=== PATIENT | female | born 1955 | race Caucasian/White ===

== ENCOUNTER 2016-09-25 19:39 | Emergency (ER) | payer MEDICAID, OTHER ==
[~2016-09-25] VITALS: Ht 162.6 cm; Wt 97.0 kg
[~2016-09-25 19:39] MED LIST: ATEN-102 PO; CLON1 PO; FERR324T4 PO; LEXA10TA OR; LISI20 PO; PROT40TA PO; ST J81CH PO
[2016-09-25 19:43] VITALS: BP 177/81; PULSE 84; RESP 16; TEMP 98.2; O2SAT 97
[2016-09-25] MEDS ORDERED: CLON1TAB PO (21:44)
[2016-09-25] MEDS ORDERED: ATEN50TA PO (21:44)
[2016-09-25] MEDS ORDERED: ASPI81CH CHEW (21:44)
[2016-09-25] MEDS ORDERED: LISI-515 PO (21:44)
[2016-09-25] MEDS ORDERED: PROT40TA PO (21:44)
[2016-09-25] MEDS ORDERED: FERR325T PO (21:44)
[2016-09-25 21:45] VITALS: BP 209/93; PULSE 80; RESP 18; O2SAT 97
[2016-09-25 22:07] VITALS: O2SAT 99
--- NOTE | 2016-09-25 22:13 | PD ---
HPI Chief Complaint: Respiratory Symptoms Time Seen by Provider: 22:04 Travel History International Travel<30 days: No Contact w/Intl Traveler<30days: No Traveled to known affect area: No History of Present Illness HPI The patient is a 60-year-old female that complains of a persistent cough productive of green sputum for 2 weeks. She denies any chest pain but does have shortness of breath with wheezing. She does have a history of asthma. She does not smoke. She had diarrhea a week ago but this has resolved. She denies any fever. The main reason she comes in is because of her persistent cough. She does have a nebulizer machine at home and has medications for the nebulizer. PFSH Past Medical History Arthritis: Yes (all over, fingers on both hands bent) Asthma: Yes Blood Disorders: No Anxiety: Yes Cancer: No Cardiovascular Problems: Yes (HTN) Diminished Hearing: No Endocrine: No Hepatitis: Yes (C) Hypertension: Yes Implanted Vascular Access Dvce: No Musculoskeletal: No Neurologic: No Psychiatric: Yes (SUICIDAL ATTEMPTS IN THE PAST) Reproductive: No Respiratory: Yes (ASTHMA) Past Surgical History Section: Yes Ear Surgery: Yes Other Surgery: No Social History Alcohol Use: No Tobacco Use: No Substance Use: No Allergies-Medications (Allergen,Severity, Reaction): Coded Allergies: No Known Allergies (Unverified , 09/25/16) Reported Meds & Prescriptions Reported Meds & Active Scripts Active Prednisone 50 Mg Tab 50 Mg PO BID Reported Protonix (Pantoprazole Sodium) 40 Mg Tab 40 Mg PO DAILY Lisinopril 20 Mg Tab 20 Mg PO DAILY Ferrous Sulfate 325 Mg Tab 325 Mg PO BID Clonazepam 1 Mg Tab 1 Mg PO HS Atenolol 50 Mg Tab 50 Mg PO DAILY Aspirin 81 Mg Chew 81 Mg CHEW DAILY Review of Systems Except as stated in HPI: all other systems reviewed are Neg Physical Exam Narrative GENERAL: The patient is alert, oriented 3 with persistent coughing. Her vital signs are normal except for blood pressure 177/81. SKIN: Warm and dry. HEAD: Atraumatic. Normocephalic. EYES: Pupils equal and round. No scleral icterus. No injection or drainage. ENT: No nasal bleeding or discharge. Mucous membranes pink and moist. NECK: Trachea midline. No JVD. CARDIOVASCULAR: Regular rate and rhythm. No murmur appreciated. RESPIRATORY: No accessory muscle use. Bilateral wheezes are heard in all lung dalal. Breath sounds equal bilaterally. GASTROINTESTINAL: Abdomen soft, non-tender, nondistended. Hepatic and splenic margins not palpable. MUSCULOSKELETAL: No obvious deformities. No clubbing. No cyanosis. No edema. NEUROLOGICAL: Awake and alert. No obvious cranial nerve deficits. Motor grossly within normal limits. Normal speech. PSYCHIATRIC: Appropriate mood and affect; insight and judgment normal. Data Data Last Documented VS Vital Signs Date Time Temp Pulse Resp B/P Pulse Ox O2 Delivery O2 Flow Rate FiO2 09/25/16 22:07 98 Nasal Cannula 1 09/25/16 21:45 80 18 209/93 09/25/16 19:43 98.2 Orders Influenzae A/B Antigen (09/25/16 22:04) Ecg Monitoring (09/25/16 22:04) Oximetry (09/25/16 22:04) Oxygen Administration (09/25/16 22:04) Chest, Pa & Lat (09/25/16 22:04) Albuterol-Ipratropium Neb (Duoneb Neb) (09/25/16 22:15) Complete Blood Count With Diff (09/25/16 22:05) Basic Metabolic Panel (Bmp) (09/25/16 22:05) Methylprednisolone So Succ Inj (Solumedr (09/25/16 22:15) Labs Laboratory Tests Test 09/25/16 22:09 White Blood Count 5.5 TH/MM3 Red Blood Count 4.26 MIL/MM3 Hemoglobin 12.7 GM/DL Hematocrit 36.3 % Mean Corpuscular Volume 85.1 FL Mean Corpuscular Hemoglobin 29.9 PG Mean Corpuscular Hemoglobin 35.2 % Concent Red Cell Distribution Width 14.7 % Platelet Count 114 TH/MM3 Mean Platelet Volume 8.0 FL Neutrophils (%) (Auto) 52.4 % Lymphocytes (%) (Auto) 28.1 % Monocytes (%) (Auto) 12.2 % Eosinophils (%) (Auto) 6.8 % Basophils (%) (Auto) 0.5 % Neutrophils # (Auto) 2.9 TH/MM3 Lymphocytes # (Auto) 1.5 TH/MM3 Monocytes # (Auto) 0.7 TH/MM3 Eosinophils # (Auto) 0.4 TH/MM3 Basophils # (Auto) 0.0 TH/MM3 CBC Comment DIFF FINAL Differential Comment Sodium Level 143 MEQ/L Potassium Level 3.9 MEQ/L Chloride Level 108 MEQ/L Carbon Dioxide Level 26.7 MEQ/L Anion Gap 8 MEQ/L Blood Urea Nitrogen 8 MG/DL Creatinine 0.57 MG/DL Estimat Glomerular Filtration 109 ML/MIN Rate Random Glucose 96 MG/DL Calcium Level 8.2 MG/DL [facility] Medical Decision Making Medical Screen Exam Complete: Yes Emergency Medical Condition: Yes Medical Record Reviewed: Yes Interpretation(s) The chest x-ray shows minimal basilar atelectasis. The influenza a/B antigen is negative for flu a and flu B antigen. The CBC is normal. The white count is on the low side of 5500. The basic metabolic profile is normal except for a calcium of 8.2. Differential Diagnosis COPD with acute exacerbation, pneumonia, bronchitis, acute asthma Narrative Course It is now 11:43 PM and the patient feels much better having had the DuoNeb treatments. She will be put on a tapered course of prednisone over 8 days. Diagnosis Primary Impression: Acute asthma Additional Impression: Viral URI with cough Additional Instructions: Follow-up with your primary care physician next week. The prednisone is taken one tablet every 12 hours for 4 days followed by one tablet daily for 4 days. Med/Other Pt SpecificInfo: Prescription(s) given Scripts Prednisone 50 Mg Tab50 Mg PO BID #12 TAB Ref 0 Prov:Emerson Bhatia MD 09/25/16 Disposition: 01 DISCHARGE HOME Condition: Stable Emerson Bhatia MD Sep 25, 2016 22:13
[2016-09-25] MEDS ORDERED: methylPREDNISolone SOD SUCC 125 MG/2 ML VIAL IV PUSH ONE (22:15)
[2016-09-25 22:22] LABS: AUTOMATED NEUTROPHIL # 2.9 TH/MM3 (1.8-7.7); BASOPHIL % 0.5 % (0.0-2.0); EOSINOPHIL # 0.4 TH/MM3 (0-0.4); EOSINOPHIL % 6.8 % (0.0-4.0); HEMATOCRIT 36.3 % (35.0-46.0); HEMO FLAGS DIFF FINAL; LYMPH % 28.1 % (9.0-44.0); LYMPHOCYTE # 1.5 TH/MM3 (1.0-4.8); MEAN CELL VOLUME 85.1 FL (80.0-100.0); MEAN CORPUSCULAR HEMOGLOBIN 29.9 PG (27.0-34.0); MEAN CORPUSCULAR HGB CONC 35.2 % (32.0-36.0); MONO % 12.2 % (0.0-8.0); NEUT % 52.4 % (16.0-70.0); PLATELET COUNT 114 TH/MM3 (150-450); RED BLOOD COUNT 4.26 MIL/MM3 (4.00-5.30); RED CELL DISTRIBUTION WIDTH 14.7 % (11.6-17.2); WHITE BLOOD COUNT 5.5 TH/MM3 (4.0-11.0)
[2016-09-25] MEDS: RESP: ALBUTEROL 2.5 MG/IPRATROPIUM 0.5 MG NEB (SCH) INH (22:28)
--- NOTE | 2016-09-25 22:36 | RADRPT ---
EXAM DATE/TIME: 09/25/2016 22:20 [facility] COMPARISON: No previous studies available for comparison. INDICATIONS : Short of breath MEDICAL HISTORY : Hypertension. SURGICAL HISTORY : None. ENCOUNTER: Initial ACUITY: 2 weeks PAIN SCORE: 0/10 LOCATION: chest FINDINGS: PA and lateral views of the chest demonstrate minimal basilar atelectasis. No effusion. Heart size no rmal. CONCLUSION: 1. Minimal basilar atelectasis. Alex Stubbs MD on September 25, 2016 at 22:32 Board Certified Radiologist. This report was verified electronically.
[2016-09-25 22:38] LABS: BICARBONATE 26.7 MEQ/L (21.0-32.0); POTASSIUM 3.9 MEQ/L (3.5-5.1)
[2016-09-25] MEDS ORDERED: PRED50 PO (23:48)
[2016-09-25 23:58] VITALS: BP 178/90; PULSE 83; RESP 20; O2SAT 95
== END 2016-09-26 00:16 | disposition home or self-care (01) ==
LOC: NEPC 19:39
DX: J45.909 Unspecified asthma, uncomplicated (principal); J06.9 Acute upper respiratory infection, unspecified
CPT/HCPCS: 71020; 80048; 85025; 87804; 94640; 94664; 96374; 99283; J2930

== ENCOUNTER 2016-10-13 15:20 | Emergency (ER) | payer OTHER ==
[~2016-10-13] VITALS: Ht 152.4 cm; Wt 95.0 kg
[~2016-10-13 15:20] MED LIST changes: +ASPI81CH CHEW; -ATEN-102 PO; +ATEN50TA PO; -CLON1 PO; +CLON1TAB PO; -FERR324T4 PO; +FERR325T PO; -LEXA10TA OR; +LISI-515 PO; -LISI20 PO; +PRED50 PO; -ST J81CH PO
[2016-10-13 15:24] VITALS: BP 189/112; PULSE 70; RESP 18; TEMP 98.4; O2SAT 96
[2016-10-13] MEDS ORDERED: GABA300C5 PO (16:08)
[2016-10-13] MEDS ORDERED: ZOLP5TAB3 PO (16:08)
[2016-10-13] MEDS ORDERED: ALBUAER3 INH (16:08)
[2016-10-13] MEDS ORDERED: LOSA50TA PO (16:08)
[2016-10-13] MEDS ORDERED: diphenhydrAMINE HCL 50 MG/ML VIAL IM ONE (16:15)
[2016-10-13] MEDS ORDERED: DEXAMETHASONE SOD PHOS 4 MG/ML VIAL IM ONE (16:15)
--- NOTE | 2016-10-13 16:15 | PD ---
HPI Chief Complaint: Allergic/Adverse Reaction Time Seen by Provider: 16:03 Travel History International Travel<30 days: No Contact w/Intl Traveler<30days: No Traveled to known affect area: No History of Present Illness HPI 60-year-old female here with complaint of possible allergic reaction, rash. Telephone complex case manager used for this ED visit. Patient states that yesterday she has had a rash that is itchy, warmth along the anterior inferior neck extending into the superior anterior chest wall. Patient notes associated facial swelling but I do not appreciate any of this on exam and she states that since resolved. She denies any new lotions, soaps, detergents, perfume, sun exposure, etc. Multiple home medications but none of these have changed orders had new doses recently. She has not taken anything for the symptoms prior to arrival. PFSH Past Medical History Arthritis: Yes (all over, fingers on both hands bent) Asthma: Yes Blood Disorders: No Anxiety: Yes Cancer: No Cardiovascular Problems: Yes (HTN) Diminished Hearing: No Endocrine: No Hepatitis: Yes (C) Hypertension: Yes Implanted Vascular Access Dvce: No Musculoskeletal: No Neurologic: No Psychiatric: Yes (SUICIDAL ATTEMPTS IN THE PAST) Reproductive: No Respiratory: Yes (ASTHMA) Tetanus Vaccination: Unknown Influenza Vaccination: No ?: Not Past Surgical History Section: Yes Ear Surgery: Yes (LEFT) Other Surgery: No Social History Alcohol Use: No Tobacco Use: No Substance Use: No Allergies-Medications (Allergen,Severity, Reaction): Coded Allergies: No Known Allergies (Unverified , 10/13/16) Uncoded Allergies: DEPRESSION MEDICATIONS (Allergy, Unknown, 10/13/16) Reported Meds & Prescriptions Reported Meds & Active Scripts Active Prednisone 50 Mg Tab 50 Mg PO BID Reported Losartan (Losartan Potassium) 50 Mg Tab 50 Mg PO DAILY Gabapentin 300 Mg Cap 300 Mg PO BID Zolpidem (Zolpidem Tartrate) 5 Mg Tab 5 Mg PO HS PRN Proair Hfa 8.5 GM Inh (Albuterol Sulfate) 90 Mcg/Act Aer 1 Puff INH Q4H PRN 108 mcg/actuation Protonix (Pantoprazole Sodium) 40 Mg Tab 40 Mg PO DAILY Lisinopril 20 Mg Tab 20 Mg PO DAILY Ferrous Sulfate 325 Mg Tab 325 Mg PO BID Clonazepam 1 Mg Tab 1 Mg PO HS Atenolol 50 Mg Tab 50 Mg PO DAILY Aspirin 81 Mg Chew 81 Mg CHEW DAILY Review of Systems Except as stated in HPI: all other systems reviewed are Neg Physical Exam Narrative GENERAL: Well-appearing female in no acute distress SKIN: Erythema slightly raised with excoriations along the anterior inferior neck and superior anterior chest wall. HEAD: Atraumatic. Normocephalic. EYES: Pupils equal and round. No scleral icterus. No injection or drainage. ENT: No nasal bleeding or discharge. Mucous membranes pink and moist. The mouth is soft without induration NECK: Supple without stridor and full pain-free range of motion CARDIOVASCULAR: Regular rate and rhythm. No murmur appreciated. RESPIRATORY: No accessory muscle use. Clear to auscultation. Breath sounds equal bilaterally. MUSCULOSKELETAL: Moves all extremities normally normal gait NEUROLOGICAL: Awake and alert. PSYCHIATRIC: Appropriate mood and affect; insight and judgment normal. Data Data Last Documented VS Vital Signs Date Time Temp Pulse Resp B/P Pulse Ox O2 Delivery O2 Flow Rate FiO2 10/13/16 15:50 18 Room Air 10/13/16 15:24 98.4 70 189/112 96 Orders Dexamethasone Inj (Decadron Inj) (10/13/16 16:15) Diphenhydramine Inj (Benadryl Inj) (10/13/16 16:15) [facility] Medical Decision Making Medical Screen Exam Complete: Yes Emergency Medical Condition: Yes Medical Record Reviewed: Yes Differential Diagnosis 60-year-old female here with complaint of rash and possible allergic reaction. Patient has erythematous rash along the neck and superior chest that is excoriated. She is not able to recall any new exposure. Appears allergic in nature and not indurated to suggest cellulitis. Floor the mouth is soft and and no evidence of Sawyer angina on exam. Narrative Course Patient treated symptomatically with Benadryl and Decadron and discharged home Diagnosis Primary Impression: Rash Referrals: Primary Care Physician as needed Additional Instructions: Benadryl as needed for itching. Med/Other Pt SpecificInfo: No Change to Meds Disposition: 01 DISCHARGE HOME Condition: Stable Belinda Carvalho MD Oct 13, 2016 16:15
== END 2016-10-13 16:43 | disposition home or self-care (01) ==
LOC: NEPD 15:20
DX: R21 Rash and other nonspecific skin eruption (principal)
CPT/HCPCS: 96372; 99283; J1100; J1200

== ENCOUNTER 2017-04-16 09:14 | Inpatient (IN) | payer OTHER ==
[~2017-04-16] VITALS: Ht 152.4 cm; Wt 88.2 kg
[2017-04-16] VITALS (10 sets, daily range): BP systolic 129–184; BP diastolic 60–79; PULSE 58–83; RESP 18–20; TEMP 97.8–99.1; O2SAT 95–98
[~2017-04-16 09:14] MED LIST changes: +ALBUAER3 INH; +GABA300C5 PO; +LOSA50TA PO; +ZOLP5TAB3 PO
[2017-04-16] MEDS ORDERED: ADVA250A INH (09:57)
[2017-04-16] MEDS ORDERED: AMLO2.5T PO (09:57)
[2017-04-16] MEDS ORDERED: VITA200013 PO (09:57)
[2017-04-16] MEDS ORDERED: SODIUM CHLORIDE 0.9% FLUSH 10 ML FLUSH IVF PRN (10:00)
[2017-04-16 10:19] LABS: AUTOMATED NEUTROPHIL # 2.1 TH/MM3 (1.8-7.7); BASOPHIL % 0.4 % (0.0-2.0); EOSINOPHIL # 0.3 TH/MM3 (0-0.4); HEMATOCRIT 33.4 % (35.0-46.0); HEMO FLAGS DIFF FINAL; LYMPH % 29.7 % (9.0-44.0); LYMPHOCYTE # 1.3 TH/MM3 (1.0-4.8); MEAN CELL VOLUME 87.2 FL (80.0-100.0); MEAN CORPUSCULAR HEMOGLOBIN 30.3 PG (27.0-34.0); MEAN CORPUSCULAR HGB CONC 34.7 % (32.0-36.0); MONO % 13.5 % (0.0-8.0); NEUT % 48.4 % (16.0-70.0); PLATELET COUNT 102 TH/MM3 (150-450); RED BLOOD COUNT 3.83 MIL/MM3 (4.00-5.30); RED CELL DISTRIBUTION WIDTH 14.3 % (11.6-17.2); WHITE BLOOD COUNT 4.3 TH/MM3 (4.0-11.0)
[2017-04-16 10:27] LABS: APTT (PATIENT) 27.4 SEC (24.3-30.1); INTERNATIONAL NORMALIZED RATIO 1.1 RATIO; PROTHROMBIN TIME - PATIENT 11.7 SEC (9.8-11.6)
--- NOTE | 2017-04-16 10:29 | RADRPT ---
EXAM DATE/TIME: 04/16/2017 10:04 [facility] COMPARISON: No previous studies available for comparison. INDICATIONS : Chest pain MEDICAL HISTORY : Hypertension. small bowel obstruction, asthma SURGICAL HISTORY : Tubal ligation. section. ENCOUNTER: Initial ACUITY: 1 day PAIN SCORE: Non-responsive. LOCATION: Bilateral chest FINDINGS: A single view of the chest demonstrates the lungs to be symmetrically aerated without evidence of mas s, infiltrate or effusion. The cardiomediastinal contours are unremarkable. Osseous structures are intact. CONCLUSION: No acute disease. Mayank Banerjee MD on April 16, 2017 at 10:28 Board Certified Radiologist. This report was verified electronically.
[2017-04-16 10:46] LABS: ANION GAP 7 MEQ/L (5-15); BICARBONATE 26.3 MEQ/L (21.0-32.0); BLOOD UREA NITROGEN 10 MG/DL (7-18); CHLORIDE 106 MEQ/L (98-107); GLOMERULAR FILTRATION RATE 106 ML/MIN (>89); MAGNESIUM 1.5 MG/DL (1.5-2.5); POTASSIUM 3.6 MEQ/L (3.5-5.1); SODIUM (NA) 139 MEQ/L (136-145)
[2017-04-16 10:50] LABS: CREATINE KINASE 109 U/L (26-192)
[2017-04-16] MEDS: RESP: ALBUTEROL 2.5 MG/IPRATROPIUM 0.5 MG NEB (SCH) INH ×2 (10:56→10:57)
[2017-04-16] MEDS ORDERED: methylPREDNISolone SOD SUCC 125 MG/2 ML VIAL IV PUSH ONE (11:00)
[2017-04-16] MEDS ORDERED: ACETAMINOPHEN 325 MG TAB PO ONE (11:00)
[2017-04-16 11:02] LABS: CKMB 1.4 NG/ML (0.5-3.6)
--- NOTE | 2017-04-16 12:08 | RADRPT ---
EXAM DATE/TIME: 04/16/2017 11:43 [facility] COMPARISON: No previous studies available for comparison. INDICATIONS : Fall one month ago now having headache,chest pains,and nose bleeds. RADIATION DOSE: 29.29 CTDIvol (mGy) MEDICAL HISTORY : Hypertension. Hepatitis C. Asthma SURGICAL HISTORY : None. ENCOUNTER: Initial ACUITY: 1 day PAIN SCALE: 10/10 LOCATION: cranial TECHNIQUE: Multiple contiguous axial images were obtained of the head. Using automated exposure control and adj ustment of the mA and/or kV according to patient size, radiation dose was kept as low as reasonably a chievable to obtain optimal diagnostic quality images. DICOM format image data is available electro nically for review and comparison. FINDINGS: CEREBRUM: The ventricles are normal for age. No evidence of midline shift, mass lesion, hemorrhage or acute in farction. No extra-axial fluid collections are seen. POSTERIOR FOSSA: The cerebellum and brainstem are intact. The 4th ventricle is midline. The cerebellopontine angle i s unremarkable. EXTRACRANIAL: The visualized portion of the orbits is intact. SKULL: The calvaria is intact. No evidence of skull fracture. CONCLUSION: Normal examination. Jg Corcoran MD on April 16, 2017 at 12:05 Board Certified Radiologist. This report was verified electronically.
--- NOTE | 2017-04-16 12:16 | PD ---
HPI Chief Complaint: Chest Pain Time Seen by Provider: 09:50 Travel History International Travel<30 days: No Contact w/Intl Traveler<30days: No Traveled to known affect area: No History of Present Illness HPI 61-year-old female came to the emergency room with history of multiple complains including chest pain, some shortness of breath and headache. Patient says that the chest pain has been on and off for past 1 week. No aggravating or relieving factors. She points the pain to the substernal area and like a pressure. It radiates down her left arm. Patient fell one month ago and has been having headaches since then. She has also been dizzy to some extent. The headache is worse when she moves her head up and down or right and left. Patient has been having some palpitations. She had similar symptoms. Years ago and had a Holter monitoring done which was negative. Patient does not recall any stress test done. Vital signs are stable. No nausea vomiting. No syncopal episode. PFSH Past Medical History Narrative Medical List of her past medical, surgical, social and family history as reviewed from the nursing note. Arthritis: Yes (all over, fingers on both hands bent) Asthma: Yes Blood Disorders: No Anxiety: Yes Depression: Yes Cancer: No Cardiovascular Problems: Yes (htn) Diminished Hearing: No Endocrine: No Hepatitis: Yes (C) Hypertension: Yes Implanted Vascular Access Dvce: No Musculoskeletal: No Neurologic: No Psychiatric: Yes (SUICIDAL ATTEMPTS IN THE PAST) Reproductive: No Respiratory: Yes (ASTHMA) Past Surgical History Section: Yes Ear Surgery: Yes (LEFT) Other Surgery: No Social History Alcohol Use: No Tobacco Use: No Substance Use: No Allergies-Medications (Allergen,Severity, Reaction): Uncoded Allergies: lactose intolerant (Allergy, Intermediate, diarrhea, 04/19/17) Comments No known drug allergies. Reported Meds & Prescriptions Reported Meds & Active Scripts Active Reported Advair Diskus Inh (Fluticasone-Salmeterol Inh) 250-50 Mcg/Blist Aer 1 Puff INH BID Rinse mouth after use. Amlodipine (Amlodipine Besylate) 2.5 Mg Tab 2.5 Mg PO DAILY Vitamin D (Cholecalciferol) 2,000 Unit Cap 50,000 Units PO WEEKLY Losartan (Losartan Potassium) 50 Mg Tab 50 Mg PO DAILY Gabapentin 300 Mg Cap 300 Mg PO BID Proair Hfa 8.5 GM Inh (Albuterol Sulfate) 90 Mcg/Act Aer 1 Puff INH Q4H PRN 108 mcg/actuation Protonix (Pantoprazole Sodium) 40 Mg Tab 40 Mg PO DAILY Atenolol 50 Mg Tab 50 Mg PO DAILY Aspirin 81 Mg Chew 81 Mg CHEW DAILY Narrative Medication List of her home medications reviewed from the nursing note. Review of Systems Except as stated in HPI: all other systems reviewed are Neg Cardiovascular: Positive: Chest Pain or Discomfort, Palpitations, Dyspnea on exertion Musculoskeletal: Positive: Pain (Left leg) Neurologic: Positive: Headache Physical Exam Narrative GENERAL: Awake, alert, obese, anxious, moderate distress SKIN: Focused skin assessment warm/dry. HEAD: Atraumatic. Normocephalic. EYES: Pupils equal and round. No scleral icterus. No injection or drainage. ENT: No nasal bleeding or discharge. Mucous membranes pink and moist. NECK: Trachea midline. No JVD. CARDIOVASCULAR: Regular rate and rhythm. No murmur appreciated. RESPIRATORY: No accessory muscle use. Clear to auscultation. Breath sounds equal bilaterally. GASTROINTESTINAL: Abdomen soft, non-tender, nondistended. Hepatic and splenic margins not palpable. MUSCULOSKELETAL: No obvious deformities. No clubbing. No cyanosis. No edema. NEUROLOGICAL: Awake and alert. No obvious cranial nerve deficits. Motor grossly within normal limits. Normal speech. PSYCHIATRIC: Appropriate mood and affect; insight and judgment normal. Data Data Last Documented VS Vital Signs Date Time Temp Pulse Resp B/P (MAP) Pulse Ox O2 Delivery O2 Flow Rate FiO2 04/16/17 10:50 58 18 166/77 (106) 96 Room Air 04/16/17 09:21 98.4 Orders Orders Electrocardiogram (04/16/17 09:51) Basic Metabolic Panel (Bmp) (04/16/17 09:51) Ckmb (Isoenzyme) Profile (04/16/17 09:51) Complete Blood Count With Diff (04/16/17 09:51) Magnesium (Mg) (04/16/17 09:51) Prothrombin Time / Inr (Pt) (04/16/17 09:51) Act Partial Throm Time (Ptt) (04/16/17 09:51) Troponin I (04/16/17 09:51) Chest, Single Ap (04/16/17 09:51) Ecg Monitoring (04/16/17 09:51) Bilateral Bp Monitoring (04/16/17 09:51) Iv Access Insert/Monitor (04/16/17 09:51) Oximetry (04/16/17 09:51) Oxygen Administration (04/16/17 09:51) Sodium Chloride 0.9% Flush (Ns Flush) (04/16/17 10:00) CKMB (04/16/17 10:00) CKMB% (04/16/17 10:00) Methylprednisolone So Succ Inj (Solumedr (04/16/17 11:00) Albuterol-Ipratropium Neb (Duoneb Neb) (04/16/17 11:00) Acetaminophen (Tylenol) (04/16/17 11:00) Ct Brain W/O Iv Contrast(Rout) (04/16/17 ) Admit Order (Ed Use Only) (04/16/17 12:10) Labs Laboratory Tests Test 04/16/17 10:00 White Blood Count 4.3 TH/MM3 Red Blood Count 3.83 MIL/MM3 Hemoglobin 11.6 GM/DL Hematocrit 33.4 % Mean Corpuscular Volume 87.2 FL Mean Corpuscular Hemoglobin 30.3 PG Mean Corpuscular Hemoglobin Concent 34.7 % Red Cell Distribution Width 14.3 % Platelet Count 102 TH/MM3 Mean Platelet Volume 8.1 FL Neutrophils (%) (Auto) 48.4 % Lymphocytes (%) (Auto) 29.7 % Monocytes (%) (Auto) 13.5 % Eosinophils (%) (Auto) 8.0 % Basophils (%) (Auto) 0.4 % Neutrophils # (Auto) 2.1 TH/MM3 Lymphocytes # (Auto) 1.3 TH/MM3 Monocytes # (Auto) 0.6 TH/MM3 Eosinophils # (Auto) 0.3 TH/MM3 Basophils # (Auto) 0.0 TH/MM3 CBC Comment DIFF FINAL Differential Comment Prothrombin Time 11.7 SEC Prothromb Time International Ratio 1.1 RATIO Activated Partial Thromboplast Time 27.4 SEC Blood Urea Nitrogen 10 MG/DL Creatinine 0.58 MG/DL Random Glucose 104 MG/DL Calcium Level 8.5 MG/DL Magnesium Level 1.5 MG/DL Sodium Level 139 MEQ/L Potassium Level 3.6 MEQ/L Chloride Level 106 MEQ/L Carbon Dioxide Level 26.3 MEQ/L Anion Gap 7 MEQ/L Estimat Glomerular Filtration Rate 106 ML/MIN Total Creatine Kinase 109 U/L Creatine Kinase MB 1.4 NG/ML Troponin I LESS THAN 0.02 NG/ML MDM Medical Decision Making Medical Screen Exam Complete: Yes Emergency Medical Condition: Yes Medical Record Reviewed: Yes Interpretation(s) Twelve-lead EKG was reviewed by me. Normal sinus rhythm, left axis deviation, LVH by voltage criteria, nonspecific ST-T wave changes. Heart rate of 66 bpm. Differential Diagnosis ACS, non-STEMI, nonspecific chest pain Narrative Course 12:15 PM blood test results of back and within acceptable limits. Head CT is negative which was done for her headache. Patient was given Tylenol for her headache. I would like to admit her to the chest pain center to be evaluated by the filleter and rule out ACS given her age and history of hypertension and chest pain. Procedures EKG Prior to Arrival: No Diagnosis Primary Impression: Chest pain Qualified Codes: R07.9 - Chest pain, unspecified Admitting Information Admitting Physician Requests: Observation Adrienne Costello MD Apr 16, 2017 12:16
[2017-04-16] MEDS ORDERED: ONDANSETRON HCL 4 MG/2 ML VIAL IV PUSH PRN (13:00)
[2017-04-16] MEDS ORDERED: NITROGLYCERIN 0.4 MG SL 25 TABS/BTL SL PRN (13:00)
[2017-04-16 15:00] LABS: CREATINE KINASE 107 U/L (26-192)
[2017-04-16 15:12] LABS: CKMB 1.2 NG/ML (0.5-3.6)
--- NOTE | 2017-04-16 15:20 | HHI.HP ---
HPI Primary Care Physician Unknown Chief Complaint Chest pain and headache History of Present Illness 61-year-old Maltese-speaking female with history of hypertension, anxiety, and asthma presents to emergency room for further evaluation of chest pain and headache. Electroneurodiagnostic Technologist used during H&P. Onset of chest pain 3 days ago. Location left anterior chest. Characterized as a "deep inside pressure,leg something wanted to come out of my chest." No radiation of pain. Duration has been constant 3 days. No particular movement or position may pain better or worse. Deep breathing does not aggravate pain. No associated symptoms of nausea, vomiting, diaphoresis, or shortness of breath. No known precipitating or relieving factors. Also presents to ER for further evaluation of headache. Reports falling one month ago hitting her head on a table. Experiences daily frontal headache since fall. Denies syncopal episodes. Review of Systems General: No fatigue,weakness, fever, chills, or recent illness. Has been in her general state of health. HEENT: Daily TIDWELL 1 month status post falling hitting her head on a table. No vision changes. CV: Continues to have pain as stated above. Reports intermittent irregular palpitations. Denies dizziness, syncopal episodes, or LOC. RESP: No SOB, cough, or sputum production. History of asthma reportedly well- controlled with current inhalers. GI: No nausea, vomiting, or bowel changes. Recently completed Hepatitis C curative medications. No change in appetite, no unintentional weight gain or weight loss. : No dysuria, urgency, or frequency. EXT: No lower leg edema, no paraesthesias MS: No discomfort or change in ROM, ambulates with a cane NEURO: No change in memory, LOC, or motor/sensory deficits PSYCH: No anxiety, depression, or situational stress SKIN: No rashes, no concerning lesions Past Family Social History Allergies: Coded Allergies: No Known Allergies (Unverified , 10/13/16) Uncoded Allergies: DEPRESSION MEDICATIONS (Allergy, Unknown, 10/13/16) Past Medical History Hypertension, anxiety, hepatitis C (recently completed curative medication), asthma, arthritis Past Surgical History Reported Medications Reported Meds & Active Scripts Active Reported Advair Diskus Inh (Fluticasone-Salmeterol Inh) 250-50 Mcg/Blist Aer 1 Puff INH BID Rinse mouth after use. Amlodipine (Amlodipine Besylate) 2.5 Mg Tab 2.5 Mg PO DAILY Vitamin D (Cholecalciferol) 2,000 Unit Cap 50,000 Units PO WEEKLY Losartan (Losartan Potassium) 50 Mg Tab 50 Mg PO DAILY Gabapentin 300 Mg Cap 300 Mg PO BID Proair Hfa 8.5 GM Inh (Albuterol Sulfate) 90 Mcg/Act Aer 1 Puff INH Q4H PRN 108 mcg/actuation Protonix (Pantoprazole Sodium) 40 Mg Tab 40 Mg PO DAILY Atenolol 50 Mg Tab 50 Mg PO DAILY Aspirin 81 Mg Chew 81 Mg CHEW DAILY Active Ordered Medications Current Medications Medications (Trade) Dose Ordered Sig/Susan Route Start Time Stop Time Status Last Admin (NS Flush) 2 ml UNSCH PRN IVF 04/16/17 10:00 (NS Flush) 2 ml BID IV FLUSH 04/16/17 21:00 (Tylenol) 500 mg Q4H PRN PO 04/16/17 13:00 (Zofran Inj) 4 mg Q6H PRN IV PUSH 04/16/17 13:00 (Nitrostat Sl) 0.4 mg Q5M PRN SL 04/16/17 13:00 (Aspirin) 325 mg DAILY PO 04/17/17 09:00 Social History Past Cardiac Testing 08/06/2016 Echocardiogram (report read by nurse from Dr. Lenny Sorto office-[facility]) LVF 55-60%, severe aortic valve sclerosis, mild aortic value stenosis. 08/07/2016 Lexiscan (report read from nurse at Dr. Lenny Sorto office) No significant signs of ischemia. EF 60%, Normal LV systolic function. Physical Exam Vital Signs Vital Signs Date Time Temp Pulse Resp B/P (MAP) Pulse Ox O2 Delivery O2 Flow Rate FiO2 04/16/17 14:27 Nasal Cannula 2.00 04/16/17 14:24 76 20 129/60 (83) 96 Nasal Cannula 2.00 04/16/17 14:24 04/16/17 13:00 96 Nasal Cannula 2.00 04/16/17 12:20 67 18 158/73 (101) 96 Room Air 04/16/17 10:50 58 18 166/77 (106) 96 Room Air 04/16/17 10:00 96 Room Air 04/16/17 09:33 65 20 98 Room Air 04/16/17 09:27 66 20 181/77 (111) 97 04/16/17 09:21 98.4 67 18 184/79 (114) 98 Room Air Physical Exam GENERAL: Alert WN, WD, NAD, pleasant, obese female HEAD: NC, AT EYES: Sclera clear, conjunctiva without injection ENT: Mucous membranes pink and moist NECK: Supple, no masses, trachea midline CV: RRR, 3-4/6 systolic murmur with radiation of sound to bilateral carotid bruits. No rub, gallop, no JVD. Chest wall nontender with palpation. RESP: Expiratory wheeze upper bilateral lobes. No crackles or rhonchi. symmetrical chest rise, nonlabored, able to speak in full sentences. ABD: Soft, NT, ND, no masses, positive bowel tones, obese EXT: Pulses +24, trace pedal edema MS: Normal tone 4 extremities, no obvious deformities, full range of motion NEURO: CN II through CN XII grossly intact, motor strength 5/5 PSYCH: A+O 3, pleasant affect, appropriate speech, appropriate mood and affect , insight and judgment, micronesian speaking SKIN: Normal turgor, normal texture, no lesions, no rashes, brisk cap refill, even hair distribution Laboratory Laboratory Tests Test 04/16/17 10:00 04/16/17 13:00 White Blood Count 4.3 Red Blood Count 3.83 Hemoglobin 11.6 Hematocrit 33.4 Mean Corpuscular Volume 87.2 Mean Corpuscular Hemoglobin 30.3 Mean Corpuscular Hemoglobin Concent 34.7 Red Cell Distribution Width 14.3 Platelet Count 102 Mean Platelet Volume 8.1 Neutrophils (%) (Auto) 48.4 Lymphocytes (%) (Auto) 29.7 Monocytes (%) (Auto) 13.5 Eosinophils (%) (Auto) 8.0 Basophils (%) (Auto) 0.4 Neutrophils # (Auto) 2.1 Lymphocytes # (Auto) 1.3 Monocytes # (Auto) 0.6 Eosinophils # (Auto) 0.3 Basophils # (Auto) 0.0 CBC Comment DIFF FINAL Differential Comment Prothrombin Time 11.7 Prothromb Time International Ratio 1.1 Activated Partial Thromboplast Time 27.4 Blood Urea Nitrogen 10 Creatinine 0.58 Random Glucose 104 Calcium Level 8.5 Magnesium Level 1.5 Sodium Level 139 Potassium Level 3.6 Chloride Level 106 Carbon Dioxide Level 26.3 Anion Gap 7 Estimat Glomerular Filtration Rate 106 Total Creatine Kinase 109 107 Creatine Kinase MB 1.4 1.2 Troponin I LESS THAN 0.02 LESS THAN 0.02 Result Diagram: 04/16/17 1000 04/16/17 1000 Imaging Last Impressions Chest X-Ray 04/16/17 0951 Signed Impressions: Service Date/Time: April 10:04 - CONCLUSION: No acute disease. Mayank Banerjee MD Head CT 04/16/17 0000 Signed Impressions: Service Date/Time: April 11:43 - CONCLUSION: Normal examination. Jg Corcoran MD Course EKG Normal sinus rhythm, LVH, nonspecific st segment changes Caprini VTE Risk Assessment Caprini VTE Risk Assessment: No/Low Risk (score <= 1) Caprini Risk Assessment Model Point Value = 1 Point Value = 2 Point Value = 3 Point Value = 5 Age 41-60 Minor surgery BMI > 25 kg/m2 Swollen legs Varicose veins or History of unexplained or recurrent spontaneous Oral contraceptives or hormone replacement Sepsis (< 1 month) Serious lung disease, including pneumonia (< 1 month) Abnormal pulmonary function Acute myocardial infarction Congestive heart failure (< 1 month) History of inflammatory bowel disease Medical patient at bed rest Age 61-74 Arthroscopic surgery Major open surgery (> 45 min) Laparoscopic surgery (> 45 min) Malignancy Confined to bed (> 72 hours) Immobilizing plaster cast Central venous access Age >= 75 History of VTE Family history of VTE Factor V Leiden Prothrombin [id number] Lupus anticoagulant Anticardiolipin antibodies Elevated serum homocysteine Heparin-induced thrombocytopenia Other congenital or acquired thrombophilia Stroke (< 1 month) Elective arthroplasty Hip, pelvis, or leg fracture Acute spinal cord injury (< 1 month) Prophylaxis Regimen Total Risk Factor Score Risk Level Prophylaxis Regimen 0-1 Low Early ambulation 2 Moderate Order ONE of the following: *Sequential Compression Device (SCD) *Heparin 5000 units SQ BID 3-4 Higher Order ONE of the following medications: *Heparin 5000 units SQ TID *Enoxaparin/Lovenox 40 mg SQ daily (WT < 150 kg, CrCl > 30 mL/min) *Enoxaparin/Lovenox 30 mg SQ daily (WT < 150 kg, CrCl > 10-29 mL/min) *Enoxaparin/Lovenox 30 mg SQ BID (WT < 150 kg, CrCl > 30 mL/min) AND/OR *Sequential Compression Device (SCD) 5 or more Highest Order ONE of the following medications: *Heparin 5000 units SQ TID (Preferred with Epidurals) *Enoxaparin/Lovenox 40 mg SQ daily (WT < 150 kg, CrCl > 30 mL/min) *Enoxaparin/Lovenox 30 mg SQ daily (WT < 150 kg, CrCl > 10-29 mL/min) *Enoxaparin/Lovenox 30 mg SQ BID (WT < 150 kg, CrCl > 30 mL/min) AND *Sequential Compression Device (SCD) Assessment and Plan Assessment and Plan #1 Atypical chest pain-admitted chest pain center. Will rule out with 3 sets of EKGs, cardiac enzymes, and monitor on telemetry. Will be seen and evaluated by Dr. Kelsi Parson. Patient's chest discomfort constant 3 days and had a recent chemical stress test August 2016. Also echocardiogram August 2016. Further disposition to follow after assessment by physics instructor. #2 Aortic stenosis-repeat echocardiogram. Echo report in Aug. reports mild aortic value stenosis and sever aortic value sclerosis. #3 Asthma-continue Advair, albuterol every 2 when necessary as needed for shortness of breath/wheezing #4 Hypertension-continue losartan, atenolol, and amlodipine #5 GERD-continue Protonix #6 Cephalgia-CT head negative, headache improved with Toradol 30mg IV x1 dose. 18:00 Seen and evaluated by Dr. Kelsi Parson. Plans to complete CT coronary angiogram and repeat echocardiogram. Dr. Parson concern audible heart murmur does not correspond with August's echocardiogram report. Patient agreeable to plan of care. Maryjane Corcoran Apr 16, 2017 15:20
[2017-04-16] MEDS ORDERED: RESP: ALBUTEROL 2.5 MG/3 ML NEB (PRN) NEB (15:30)
[2017-04-16] MEDS ORDERED: KETOROLAC TROMETHAMINE 30 MG/ML (IVP) VIAL IV PUSH ONE (17:15)
[2017-04-16 17:48] LABS: CREATINE KINASE 89 U/L (26-192)
--- NOTE | 2017-04-16 18:24 | EKG ---
Date Performed: 04/16/2017 Time Performed: 13:00:21 PTAGE: 61 years EKG: Sinus rhythm LEFT VENTRICULAR HYPERTROPHY AND ST-T CHANGE ABNORMAL ECG Since PREVIOUS TRACING , no significant change noted PREVIOUS TRACIN04/16/2017 09.54 DOCTOR: Kelsi Parson Interpretating Date/Time 04/16/2017 18:23:54
--- NOTE | 2017-04-16 18:27 | EKG ---
Date Performed: 04/16/2017 Time Performed: 09:54:15 PTAGE: 61 years EKG: Sinus rhythm LEFT VENTRICULAR HYPERTROPHY AND ST-T CHANGE ABNORMAL ECG NO PREVIOUS TRACING DOCTOR: Kelsi Parson Interpretating Date/Time 04/20/2017 10:04:45
[2017-04-16] MEDS: SODIUM CHLORIDE 0.9% FLUSH 10 ML FLUSH IV FLUSH SCH (21:00)
[2017-04-16] MEDS: BUDESONIDE-FORMOTEROL 160/4.5 MCG INHALER INH SCH (21:00)
[2017-04-16] MEDS: GABAPENTIN 300 MG CAP PO SCH (21:36)
[2017-04-16] MEDS: ACETAMINOPHEN 500 MG CPLT PO PRN (21:38)
[2017-04-17] VITALS (14 sets, daily range): BP systolic 128–157; BP diastolic 58–73; PULSE 62–74; RESP 18–24; TEMP 97.4–98.7; O2SAT 93–97
[2017-04-17] MEDS ORDERED: ASPIRIN 325 MG TAB PO SCH (09:00)
[2017-04-17] MEDS ORDERED: ERGOCALCIFEROL (VIT D2) 50,000 UNIT CAP PO SCH (09:00)
[2017-04-17] MEDS: PANTOPRAZOLE SOD 40 MG DELAYED RELEASE TAB PO SCH (10:07)
[2017-04-17] MEDS: GABAPENTIN 300 MG CAP PO SCH ×2 (10:07→21:00)
[2017-04-17] MEDS: LOSARTAN 50 MG TAB PO SCH (10:07)
[2017-04-17] MEDS: BUDESONIDE-FORMOTEROL 160/4.5 MCG INHALER INH SCH ×2 (10:08→21:00)
[2017-04-17] MEDS: ATENOLOL 50 MG TAB PO SCH (10:08)
[2017-04-17] MEDS: amLODIPine BESYLATE 5 MG TAB PO SCH (10:08)
[2017-04-17] MEDS: SODIUM CHLORIDE 0.9% FLUSH 10 ML FLUSH IV FLUSH SCH ×2 (10:09→21:00)
[2017-04-17] MEDS ORDERED: NITROGLYCERIN 0.4 MG SL 25 TABS/BTL SL ONE (10:59)
[2017-04-17] MEDS ORDERED: IOHEXOL 350 MG/ML 10 ML VIAL (for RAD DIAG) IVCONTRAST ONE (11:33)
--- NOTE | 2017-04-17 11:59 | RADRPT ---
EXAM DATE/TIME: 04/17/2017 11:02 [place] COMPARISON: No previous studies available for comparison. INDICATIONS : Chest pain. IV CONTRAST: 75 cc Omnipaque 350 (iohexol) IV RADIATION DOSE: 14.00 CTDIvol (mGy) MEDICAL HISTORY : None SURGICAL HISTORY : None. ENCOUNTER: Initial ACUITY: 1 day PAIN SCALE: 0/10 LOCATION: Bilateral chest TECHNIQUE: Volumetric scanning was obtained through the heart. Images were acquired on a multislice multiple ro w detector helical scanner timed for acquisition during peak arterial contrast. Images were reconstr ucted using a retrospective gating algorithm including single sector and multi-sector algorithms at m ultiple phases of the cardiac cycle. Images were interpreted using a combination of 2D and 3D visual ization modes including curved planar reformation, thin slab maximum intensity projection and volume rendering. Using automated exposure control and adjustment of the mA and/or kV according to patient size, radiation dose was kept as low as reasonably achievable to obtain optimal diagnostic quality im ages. DICOM format image data is available electronically for review and comparison. FINDINGS: VESSEL ANALYSIS: DOMINANCE: The coronary system is right dominant. LEFT MAIN: Normal vessel without calcification or stenosis. LAD: There are multiple areas of stenosis involving the proximal third of the left anterior descending art yan stenosis in the 50-70% range with a more prominent focal area of stenosis and she greater than 70 % at the junction of the proximal and middle third. Critical lesion is not excluded. CIRCUMFLEX: Normal vessel without calcification or stenosis. RCA: Nonstenotic Vessel with only minimal calcification OTHER: None. CONCLUSION: 1. Multiple areas of stenosis involving the possible third of the left anterior descending artery. Ca theter angiography is recommended for further evaluation if clinically indicated. Lenny Swanson MD on April 17, 2017 at 11:52 Board Certified Radiologist. This report was verified electronically.
--- NOTE | 2017-04-17 13:32 | ECHRPT ---
Indication: CORONARY ATHEROSCLEROSIS CONCLUSIONS The left ventricular systolic function is hyperdynamic with an estimated ejection fraction in the ra nge of 65- 70%. Mild concentric left ventricular hypertrophy. Severe aortic valve stenosis (peak 64, mean 40, CHING 0.66) Mild aortic valve regurgitation. There is mild to moderate tricuspid valve regurgitation. Kivh-bm-dairvcei mitral valve regurgitation. BP: 184 / 79 HR: Rhythm: Sinus MEASUREMENTS (Male / Female) Normal Values Technical Quality:Fair 2D ECHO LV Diastolic Diameter PLAX 4.2 cm 4.2 - 5.9 / 3.9 - 5.3 cm LV Systolic Diameter PLAX 2.9 cm IVS Diastolic Thickness 1.2 cm 0.6 - 1.0 / 0.6 - 0.9 cm LVPW Diastolic Thickness 1.2 cm 0.6 - 1.0 / 0.6 - 0.9 cm LV Relative Wall Thickness 0.6 LVOT Diameter 1.7 cm Aortic Root Diameter 2.2 cm LA Systolic Diameter LX 3.6 cm 3.0 - 4.0 / 2.7 - 3.8 cm DOPPLER AV Peak Velocity 398.0 cm/s AV Peak Gradient 63.4 mmHg AV Mean Gradient 39.0 mmHg AV Velocity Time Integral 103.0 cm LVOT Peak Velocity 113.0 cm/s LVOT Peak Gradient 5.1 mmHg LVOT Velocity Time Integral 29.9 cm AV Area Cont Eq vti 0.7 cm AV Area Cont Eq pk 0.6 cm Mitral E Point Velocity 89.8 cm/s Mitral A Point Velocity 75.5 cm/s Mitral E to A Ratio 1.2 LV E' Lateral Velocity 7.2 cm/s Mitral E to LV E' Lateral Ratio 12.5 LV E' Septal Velocity 8.5 cm/s Mitral E to LV E' Septal Ratio 10.6 TR Peak Velocity 323.0 cm/s TR Peak Gradient 41.7 mmHg Right Atrial Pressure 10.0 mmHg Pulmonary Artery Systolic Pressu 51.7 mmHg Right Ventricular Systolic Press 51.7 mmHg PV Peak Velocity 95.5 cm/s PV Peak Gradient 3.6 mmHg FINDINGS LEFT VENTRICLE Normal left ventricular size. Mild concentric left ventricular hypertrophy. The left ventricular systolic function is hyperdynamic with an estimated ejection fraction in the ra nge of 65- 70%. No regional wall motion abnormalities are present. RIGHT VENTRICLE Normal right ventricular size and systolic function. LEFT ATRIUM The left atrial size is [id number] dilated. RIGHT ATRIUM The right atrial size is normal. ATRIAL SEPTUM Normal atrial septal thickness. AORTA The aortic root and proximal ascending aorta are normal in size on limited imaging. MITRAL VALVE Structurally normal mitral valve. No mitral valve stenosis. Hyci-np-khwtvjgj mitral valve regurgitation. AORTIC VALVE Diffuse calcification of the aortic valve. Severe aortic valve stenosis (peak 64, mean 40, CHING 0.66) Mild aortic valve regurgitation. TRICUSPID VALVE Structurally normal tricuspid valve. There is mild to moderate tricuspid valve regurgitation. There is estimated moderate pulmonary hypertension present (range 50-60 mmHg). PULMONARY VALVE The pulmonary valve is not well visualized. No pulmonary valve regurgitation. PERICARDIUM There is no pericardial effusion. Ryan Atkinson DO (Electronically Signed) Final Date:17 April 2017 13:31 Amended: 17 April 2017 19:10
--- NOTE | 2017-04-17 14:29 | PD.CARD.PN ---
Subjective Subjective Remarks Nicaraguan speaking only. Use translation through [employer]. Offers no complaint. Denies chest pain. Objective Medications Current Medications Medications (Trade) Dose Ordered Sig/Susan Route Start Time Stop Time Status Last Admin (NS Flush) 2 ml UNSCH PRN IVF 04/16/17 10:00 (NS Flush) 2 ml BID IV FLUSH 04/16/17 21:00 04/17/17 10:09 (Tylenol) 500 mg Q4H PRN PO 04/16/17 13:00 04/16/17 21:38 (Zofran Inj) 4 mg Q6H PRN IV PUSH 04/16/17 13:00 (Nitrostat Sl) 0.4 mg Q5M PRN SL 04/16/17 13:00 (Aspirin) 325 mg DAILY PO 04/17/17 09:00 04/17/17 10:07 (Albuterol Neb) 2.5 mg Q2HR NEB PRN NEB 04/16/17 15:30 (Norvasc) 2.5 mg DAILY PO 04/17/17 09:00 04/17/17 10:08 (Tenormin) 50 mg DAILY PO 04/17/17 09:00 04/17/17 10:08 (Neurontin) 300 mg BID PO 04/16/17 21:00 04/17/17 10:07 (Cozaar) 50 mg DAILY PO 04/17/17 09:00 04/17/17 10:07 (Protonix) 40 mg DAILY PO 04/17/17 09:00 04/17/17 10:07 (Drisdol) 50,000 units Fr@0900 PO 04/17/17 09:00 04/17/17 10:06 (Symbicort 160-4.5 Inh) 2 puff BID INH 04/16/17 21:00 04/17/17 10:08 Vital Signs / I&O Vital Signs Date Time Temp Pulse Resp B/P (MAP) Pulse Ox O2 Delivery O2 Flow Rate FiO2 04/17/17 11:45 97.4 63 20 132/58 (82) 95 04/17/17 11:14 62 133/69 (90) 04/17/17 11:00 62 18 157/72 (100) 04/17/17 08:18 93 21 04/17/17 07:41 98.1 64 20 128/61 (83) 95 04/17/17 04:00 62 04/17/17 03:02 97.8 70 18 153/67 (95) 97 04/17/17 00:42 98.1 73 18 150/67 (94) 96 04/17/17 00:00 74 04/16/17 22:38 12 04/16/17 20:12 98 Nasal Cannula 2.00 04/16/17 20:00 83 04/16/17 19:39 97.8 81 19 132/60 (84) 97 04/16/17 16:02 99.1 75 18 135/60 (85) 95 04/16/17 14:27 Nasal Cannula 2.00 I/O 04/16/17 04/16/17 04/16/17 04/17/17 04/17/17 04/17/17 07:00 15:00 23:00 07:00 15:00 23:00 # Voids 1 Physical Exam Gen.: No apparent distress. Lungs: Clear to auscultate. Cardiac: Regular rate and rhythm. Aortic murmur (severe via 2-D echo) GI nontender normal bowel sounds. Laboratory Laboratory Tests Test 04/16/17 16:30 Total Creatine Kinase 89 U/L Troponin I LESS THAN 0.02 NG/ML Imaging Last 24 hours Impressions Coronary Angiography CT 04/17/17 0000 Signed Impressions: Service Date/Time: Monday, April 17, 2017 11:02 - CONCLUSION: 1. Multiple areas of stenosis involving the possible third of the left anterior descending artery. Catheter angiography is recommended for further evaluation if clinically indicated. Lenny Swanson MD Assessment and Plan Assessment and Plan * Chest pain: Patient had CTA of the coronaries suggestive of stenosis and suggesting cardiac catheterization. 2-D echo reveals severe aortic stenosis. Discussed this with Dr. Atkinson and he will be taking her to the straight ruling machine operator to further evaluate. Also discussed with Dr. Drake who graciously agrees to accept the patient. Patient is agreeable to this plan. Jeremiah Hernandez Apr 17, 2017 14:29
--- NOTE | 2017-04-17 15:12 | EKG ---
Date Performed: 04/16/2017 Time Performed: 17:43:44 PTAGE: 61 years EKG: Sinus rhythm NONSPECIFIC ST & T-WAVE ABNORMALITY T INVERSION INF LEADS IS NEW ABNORMAL ECG PREVIOUS TRACING : 04/16/2017 13.00 DOCTOR: Isidro Chung Interpretating Date/Time 04/17/2017 15:10:58
[2017-04-17] MEDS ORDERED: HEPARIN-NS/PF INJ 1,000 ML ONE (16:42)
[2017-04-17] MEDS ORDERED: MIDAZOLAM HCL 2 MG/2 ML VIAL ONE (16:42)
[2017-04-17] MEDS ORDERED: hydrALAZINE HCL 20 MG/ML VIAL ONE (17:36)
[2017-04-17] MEDS ORDERED: hydrALAZINE HCL 20 MG/ML VIAL IV ONE (17:39)
[2017-04-17] MEDS ORDERED: MISC INFORMATION XX ONE (18:00)
--- NOTE | 2017-04-17 18:17 | CATHPROC ---
[facility] HIS Report Study Information Study Number Admission Scheduled Start Study Start [id number] Apr 16 2017 12:12PM 04/17/2017 Apr 17 2017 4:21PM [place] Service Cardiac Catheterization Admit Source Facility Department Emergency department [facility] - C D Area Supervisor Physician and Clinical Staff Initial Ryan Lindo Warehouseman Matteo Hodge RN Recorder Martita Sanchez,RT(R) (BS) Recorder Gael Alcocer RCIS(BS) Scrub Genet German RCIS TECH2 Scrub Pam Kee,RT(R) Procedures Performed Procedure Location (Site) Vessel Name Coronary Angiograms LCA Left Coronary Coronary Angiograms RCA Right Coronary Equipment Time X Ray Developing Machine Operator Description Size Mfg Part Number Used/Scraped [id number] 16:42 SANDHU ERNST SWAN OSWALDO CATHETER FR 7 Used *[id number] TRANSDUCER, TRUWAVE [id number] 16:42 SANDHU ERNST * Used W/STOCKCOCK *[id number] TRANSDUCER, TRUWAVE [id number] 16:42 SANDHU ERNST * Used W/STOCKCOCK *[id number] *[id number] *[id number] 16:42 [employer]io[employer] PACK, CCL CUSTOM * Used *[id number] 16:42 Selectron MEDICAL SHEATH, FR5.5 PRELUDE 11CM FR 5 [id number] Used [id number] 16:42 Selectron MEDICAL WIRE, 3MMJ .035 180CM 180CM Used *[id number] 16:42 NAMIC MANIFOLD, 2 PORT * Used *[id number] 16:42 NAMIC MANIFOLD, 4 PORT * Used *[id number] 16:42 NYCOMED OMNIPAQUE, 350 MG, 150ML 150ML [id number] Used [id number] 16:42 Self Point MEDICAL BLANKET,WARM AIR CCL * Used *[id number] 16:42 TERUMO MEDICAL SHEATH, FR7 TERUMO (10CM) FR 7 Used *[id number] History: Current Medications Medication Dosage/Unit Route Frequency Last Date/Time Taken ASA Beta Braulio History: Allergies Allergy Reaction No Known Allergies DEPRESSION MEDICATIONS History: Risk Factors Family History of Hypertension Dyslipidemia Previous SD Previous Heart Failure Premature CAD Yes No No No No Prior Valve Prior PCI Prior CABG Surgery No No No Cerebrovascular Peripheral Artery Chronic Lung On Dialysis Diabetes Disease Disease Disease No No No Yes No History: Stress Tests Stress or Imaging Studies Performed No History: Other Current Smoker No Labs Hgb (g/dl) Hct (%) WBC (l/cumm) Platelets (thousands) 11.60-17.00 35.00-51.00 4.00-11.00 150.00-450.00 11.6 33.4 4.3 102 Glucose (mg/dl) BUN (mg/dl) Creatinine (mg/dl) BUN:Creatinine (1:x) 74.00-106.00 7.00-18.00 0.50-1.30 10.00-20.00 104 10 0.5 20 Na (meq/l) K (meq/l) 136.00-145.00 3.50-5.10 139 3.6 INR (PTT:PT) 0.90-1.10 1.1 Troponin I (ng/ml) CPK (u/l) CPK-MB (ng/ML) 0.02-0.05 26.00-308.00 0.50-3.60 0.02 89 1.2 Medication Medication Total Dose (Bolus/Oral) Medication Total Dosage/Unit 1% XYLOCAINE 20 mL FENTANYL 50 mcg HYDRALAZINE 10 mg Medications (Bolus/Oral) Medication Time Given Dosage/Unit Administered By Reason FENTANYL 04/17/2017 5:12:00 PM 50 mcg Matteo Hodge 50 mcg FENTANYL given in lab by Matteo Hodge RN in Right Antecubital via Peripheral IV. Ordered by Ryan Atkinson 1% XYLOCAINE 04/17/2017 5:13:16 PM 20 mL Patient arrived on 20 mL 1% XYLOCAINE in Right Groin via Subcutaneous. HYDRALAZINE 04/17/2017 5:39:00 PM 10 mg Matteo Hodge 10 mg HYDRALAZINE given in lab by Matteo oHdge RN in Right Antecubital via Peripheral IV. Ordered Ryan Alexandre Medication (Drip) Medication Time Given Dosage/Unit Concentration/Unit Diluent (ml) Solution IV Solutions 04/17/2017 4:34:03 PM 50 mL (IV) 500 LR Patient arrived on IV Solutions in Right Antecubital via Peripheral IV. Pump/Drip Flow using LR. Initial Case Assessment Cardiovascular HR Rhythm NIBP Chest Pain 65 reg 178/87 0 Edema Present Skin color Skin None Normal Warm Dry Circulatory - Right Pulses Dorsalis Pedis Femoral 1 1 Scale (0,1,2,3,4,d) Circulatory - Left Pulses Dorsalis Pedis Femoral 1 1 Scale (0,1,2,3,4,d) Circulatory - Lower Extremities Color Lower Right Color Lower Left Normal Normal Neurological State Oriented to time-place- Alert Moves all extremities person Respiration - General Respiration Rate SpO2 (%) (B/min) 20 93 Final Case Assessment Cardiovascular HR Rhythm NIBP Chest Pain 65 reg 178/87 0 Edema Present Skin color Skin None Normal Warm Dry Circulatory - Right Pulses Dorsalis Pedis Femoral 1 1 Scale (0,1,2,3,4,d) Circulatory - Left Pulses Dorsalis Pedis Femoral 1 1 Scale (0,1,2,3,4,d) Circulatory - Lower Extremities Color Lower Right Color Lower Left Normal Normal Neurological State Oriented to time-place- Alert Moves all extremities person Respiration - General Respiration Rate SpO2 (%) (B/min) 20 93 Chronological Log Time Study Chronological Log 16:33:30 Patient arrived via Bed. 16:33:31 Patient Name, D.O.B, / Armband Verified By R.N. 16:33:31 Consent signed by the physician and the patient and verified by the C D Area Supervisor staff. 16:33:32 Verbal Stimulation=2 Physical Stimulation=2 Airway=2 Respiration=2 TOTAL=8. (0=absent, 1=li mited, 2=present) 16:33:35 Presedation assessment performed by C D Area Supervisor RN. 16:33:48 Patient has been NPO for More than 6Hrs. 16:33:49 Skin Breakdown none per pt 16:33:53 Patient Warmer Placed on the Table. 16:34:02 Jessica Prominences Protected 16:34:03 A # 20 IV was noted in the Antecubital (right). Grade = 0 16:34:03 Patient arrived on IV Solutions in Right Antecubital via Peripheral IV. Pump/Drip Flow eduardo THOMAS. 16:34:06 History and physical on the chart or being dictated. Assessment: Initial Case, HR=65 BPM, Rhythm=reg, YSJL=667/87 mmhg, Chest Pain=0, Edema=None, Co maryjane=Normal, Skin = Warm, Dry Right Pulses: Graham Ped=1, Femoral=1 Left Pulses: Graham Ped=1, Femoral=1 16:34:07 Lower Right Extremities: Color=Normal Lower Left Extremities: Color=Normal Neurological: State=Alert, Ox3, MAI Respiration: Resp=20 B/min, SpO2=93 % Vitals capture started with the following parameters, Patient=Adult, Interval=5 min, Initial Pr cnbnci=614 mmHg, 16:41:11 Deflation Rate=5 mmHg, Cuff placed on Right Arm 16:47:31 Reference ECG taken Vitals capture started with the following parameters, Patient=Adult, Interval=5 min, Initial Pr xorjyb=814 mmHg, 16:47:35 Deflation Rate=5 mmHg, Cuff placed on Right Arm 16:47:39 Bilateral groins prepped with 2% chlorhexidine, and draped after a 3 minute waiting time. 16:48:59 HR=67 bpm, YGVO=071/87 mmhg, SpO2=93.0 %, Resp=23 B/min, Pain=0, Manuel=10, Martinez=2 16:53:17 ER=167 bpm, QSMT=496/71 mmhg, SpO2=92.0 %, Resp=22 B/min, Pain=0, Manuel=10, Martinez=2 16:57:16 Pressure channel 1 zeroed. 16:57:43 MD paged 16:58:20 HR=65 bpm, ZSNI=064/71 mmhg, SpO2=89.0 %, Resp=19 B/min, Pain=0, Manuel=10, Martinez=2 17:01:28 MD arrived. 17:03:15 HR=58 bpm, OHHI=403/77 mmhg, SpO2=93.0 %, Resp=25 B/min, Pain=0, Manuel=10, Martinez=2 Time Out. Correct patient, correct procedure, correct physician, power injector not loaded with contrast with surgical 17:07:42 team present. Time Out Concurred by MD and individual staff in procedure. 17:08:12 HR=60 bpm, CZRM=996/84 mmhg, SpO2=90.0 %, Resp=11 B/min, Pain=0, Manuel=10, Martinez=2 17:09:05 Case Start 50 mcg FENTANYL given in lab by Matteo Hodge, RN in Right Antecubital via Peripheral IV. Order ed by Ryan Atkinson 17:12:00 G. 17:13:16 Patient arrived on 20 mL 1% XYLOCAINE in Right Groin via Subcutaneous. 17:14:00 HR=63 bpm, AWRB=302/82 mmhg, SpO2=92.0 %, Resp=15 B/min, Pain=0, Manuel=10, Martinez=2 17:16:18 Access site was Right Femoral Artery. 17:17:55 A SHEATH, FR5.5 PRELUDE 11CM FR 5 was advanced into the Fem Art (right) using the Percutane ous technique. 17:18:22 HR=60 bpm, MWEN=247/78 mmhg, SpO2=87.0 %, Resp=29 B/min, Pain=0, Manuel=10, Martinez=2 17:18:22 Access site was Right Femoral Vein. 17:18:25 A SHEATH, FR7 TERUMO (10CM) FR 7 was advanced into the Fem Vein (right) using the Percutane ous technique. Recorded Pressure: Ao, HR=62, Condition=Condition 1 17:19:43 (Aorta) Ao 190/69/111 17:19:59 An injection in the Fem Art (right) was made through the SHEATH, FR5.5 PRELUDE 11CM FR 5. 17:20:00 A SWAN OSWALDO CATHETER FR 7 was inserted via Fem Vein (right) 17:22:06 Saturation: Site=FA (Femoral Artery) , O2=93.5 %, Hgb=11.6 gm/dl, Condition=Condition 1. Us ed in calculation. 17:23:21 HR=71 bpm, KPUQ=070/79 mmhg, SpO2=84.0 %, Resp=13 B/min, Pain=0, Manuel=10, Martinez=2 Recorded Pressure: PCW, HR=55, Condition=Condition 1 17:23:48 (Pulmonary Capillary Wedge) PCW 37/45/27 17:25:15 Saturation: Site=PA (Pulmonary Artery) , O2=69.8 %, Hgb=11.6 gm/dl, Condition=Condition 1. Used in calculation. Recorded Pressure: MPA, HR=60, Condition=Condition 1 17:25:34 (Main Pulmonary Artery) MPA 49/23/35 Recorded Pressure: RV, HR=59, Condition=Condition 1 17:26:21 (Right Ventricle) RV Recorded Pressure: RA, HR=56, Condition=Condition 1 17:26:43 (Right Atrium) RA 17:27:00 [place] Roy Oswaldo Catheter Removed A JR 4.0 INFINITI CATHETER FR 5 was advanced over a wire. OMNIPAQUE, 350 MG, 150ML 150ML was us ed for 17:28:00 injections. 17:28:25 HR=54 bpm, GOQL=593/80 mmhg, SpO2=99.0 %, Resp=9 B/min, Pain=0, Manuel=10, Martinez=2 17:29:11 The RCA was injected and visualized at various angles. OMNIPAQUE, 350 MG, 150ML 150ML used . After removing the current catheter a JL 4.0 INFINITI CATHETER FR 5 was advanced over a WIRE, 3 MMJ .035 180CM 17:30:00 180CM. 17:31:10 The LCA was injected and visualized at various angles. OMNIPAQUE, 350 MG, 150ML 150ML used . 17:34:00 HR=65 bpm, RXRF=659/73 mmhg, SpO2=99.0 %, Resp=13 B/min, Pain=0, Manuel=10, Martinez=2 17:37:41 Catheter was removed 17:37:48 Case End Assessment: Final Case, HR=65 BPM, Rhythm=reg, SXPG=355/87 mmhg, Chest Pain=0, Edema=None, [place] r=Normal, Skin = Warm, Dry Right Pulses: Graham Ped=1, Femoral=1 Left Pulses: Graham Ped=1, Femoral=1 17:38:12 Lower Right Extremities: Color=Normal Lower Left Extremities: Color=Normal Neurological: State=Alert, Ox3, MAI Respiration: Resp=20 B/min, SpO2=93 % 17:38:23 HR=67 bpm, AIFG=424/85 mmhg, SpO2=98.0 %, Resp=13 B/min, Pain=0, Manuel=10, Martinez=2 10 mg HYDRALAZINE given in lab by Matteo Hodge, RN in Right Antecubital via Peripheral IV. Ord ered by Demetrio, 17:39:00 Ryan Lay 17:39:06 Sheaths removed; pressure applied to access site. 17:43:28 HR=64 bpm, XRAL=738/74 mmhg, SpO2=96.0 %, Resp=20 B/min, Pain=0, Manuel=10, Martinez=2 17:48:21 HR=66 bpm, HFCO=960/72 mmhg, SpO2=98.0 %, Resp=20 B/min, Pain=0, Manuel=10, Martinez=2 17:53:20 HR=66 bpm, TEIS=341/71 mmhg, SpO2=97.0 %, Resp=20 B/min 17:58:19 HR=67 bpm, OPPD=951/74 mmhg, SpO2=98.0 %, Resp=17 B/min, Pain=0, Manuel=10, Martinez=2 18:03:18 HR=69 bpm, UVKN=466/79 mmhg, SpO2=97.0 %, Resp=17 B/min, Pain=0, Manuel=10, Martinez=2 18:08:23 HR=67 bpm, QQPM=568/68 mmhg, SpO2=97.0 %, Resp=16 B/min, Pain=0, Manuel=10, Martinez=2 18:13:20 HR=65 bpm, GVNP=838/60 mmhg, SpO2=96.0 %, Resp=15 B/min, Pain=0, Manuel=10, Martinez=2 18:15:22 Sterile dressing applied to site 18:15:29 No case complications noted. 18:15:30 Cine recording checked. 18:15:33 Bedside Report will be given. 18:15:35 Contrast Scanned 18:15:42 A Left and Right Heart Cath was performed. 18:15:51 Patient moved to [facility] End Study - Contrast Media Used In Study Contrast Total Opened (mL) Total Used (mL) Total Wasted (mL) Omnipaque 70 70 0 End Study - Maximum Contrast Load Max Contrast Load (mL) 890.0 End Study - Radiation Exposure Fluoro Time (minutes) 4.1 End Study - Patient Disposition Complications Transferred To Telemetry Bed
[2017-04-17] MEDS: ACETAMINOPHEN 500 MG CPLT PO PRN (21:57)
[2017-04-18] VITALS (25 sets, daily range): BP systolic 122–156; BP diastolic 57–82; PULSE 57–77; RESP 14–22; TEMP 97.4–99; O2SAT 95–97
--- NOTE | 2017-04-18 00:52 | MB ---
cc: RYAN RAMIREZ DO DATE OF CONSULTATION 04/17/17 REASON FOR CONSULTATION Severe aortic stenosis, chest pain. HISTORY OF PRESENT ILLNESS Kristina العلي is a pleasant 61-year-old [place]-speaking female who presented to [facility] on April 16, 2017 due to chest pain. She speaks only [place], so a cyber legal advisor was used as well as the chart for the history. She states that she had chest pain that started about 3 days ago located on the left side of her chest. It feels like a pressure deep inside her chest. She states that the pain does not radiate anywhere. It has been on and off but mostly constant for the past 3 days. Nothing seems to make it worse or better. She has been more short of breath. She last saw her early childhood worker and underwent testing in August for which she was told she has mild aortic stenosis, and a normal nuclear stress test. While here she underwent a CT angiogram and was found to have possible multiple lesions in the LAD region. I also read her echocardiogram which showed severe aortic stenosis and because of this I asked that she be admitted for further workup of her aortic stenosis. PAST MEDICAL HISTORY 1. Hypertension. 2. Anxiety. 3. Hepatitis C. 4. Asthma. 5. Arthritis. PAST SURGICAL HISTORY . ALLERGIES NO KNOWN DRUG ALLERGIES. MEDICATIONS 1. Albuterol 1 puff every 4 hours as needed for shortness of breath. 2. Atenolol 50 milligrams daily. 3. Norvasc 2.5 milligrams daily. 4. Losartan 50 milligrams daily. 5. Aspirin 81 milligrams daily. 6. Gabapentin 300 milligrams b.i.d. 7. Advair 1 puff b.i.d. 8. Protonix 40 milligrams daily. FAMILY HISTORY Denies premature coronary artery disease or sudden cardiac within the family. SOCIAL HISTORY Denies tobacco, alcohol or drug abuse. REVIEW OF SYSTEMS 14-systems were reviewed including osteopathic pertinent positives and negatives above, otherwise negative. PHYSICAL EXAMINATION VITAL SIGNS: Temperature 97.8, heart rate 70, blood pressure 153/67, respirations 18, pulse ox 97% on 2 liters. GENERAL: In general, the patient appears well, in no acute distress. Alert, awake and oriented x3. HEENT: Extraocular muscles intact. Mucous membranes moist. NECK: Supple. No JVD at 45 degrees. No carotid bruits heard bilaterally. Carotid upstroke is brisk in nature. HEART: Heart is regular rate and rhythm. Positive first heart sound with a dampened second heart sound and a 3/6 crescendo-decrescendo murmur to the right sternal border which is late peaking in nature. LUNGS: Lungs have decreased breath sounds bilaterally but no overt wheezes, rales or rhonchi. ABDOMEN: Soft, nontender, nondistended. No organomegaly noted. EXTREMITIES: Show no clubbing, cyanosis or edema. Femoral and distal pulses are intact bilaterally. NEUROLOGICALLY: No focal deficits. SKIN: Warm, dry and intact. OSTEOPATHIC: No kyphoscoliosis. Mild lordosis. No paraspinal tender points. LABORATORY FINDINGS Hemoglobin 11.6, hematocrit 33.4, platelets 102. Potassium 3.6, BUN 10, creatinine 0.58. Troponin negative x3. CARDIOLOGY STUDIES Echocardiogram (April 17, 2017) ejection fraction 65-70%, mild concentric LVH, severe aortic stenosis (peak 64, mean 40, aortic valve area 0.66), mild aortic valve regurgitation, mild to moderate tricuspid and mitral regurgitation. Electrocardiogram (April 16, 2017 at 17:43) sinus rhythm, nonspecific ST-T wave changes. IMPRESSION 1. Chest pain possibly due to coronary artery disease versus severe aortic stenosis. 2. Severe aortic stenosis as above (peak 64, mean 40, aortic valve area 0.66) by echocardiogram (April 17, 2017). 3. Hypertension. RECOMMENDATIONS 1. Because Ms. العلي appears to have severe aortic stenosis by echocardiogram and her chest pain may be due to this versus coronary artery disease I have recommended right and left heart catheterization for definition of her coronary anatomy as well as her heart pressures. 2. Risks, benefits and alternatives were described through a cyber legal advisor to her and her friend and she consents as such. 3. She will most likely need a cardiothoracic surgery evaluation for consideration of AVR plus/minus CABG depending on the results of the cardiac catheterization. 4. Further recommendations will be made after coronary visualization. Thank you for allowing me to see Megan العلي. If there are any questions please do not hesitate to call. Ryan Ramirez DO VGP/EO /11:10 PM /12:32 AM MTDD
[2017-04-18 05:24] LABS: AUTOMATED NEUTROPHIL # 4.2 TH/MM3 (1.8-7.7); BASOPHIL % 0.3 % (0.0-2.0); EOSINOPHIL # 0.1 TH/MM3 (0-0.4); HEMATOCRIT 32.5 % (35.0-46.0); LYMPH % 23.2 % (9.0-44.0); LYMPHOCYTE # 1.5 TH/MM3 (1.0-4.8); MEAN CELL VOLUME 87.9 FL (80.0-100.0); MEAN CORPUSCULAR HEMOGLOBIN 30.7 PG (27.0-34.0); MONO % 11.2 % (0.0-8.0); NEUT % 63.3 % (16.0-70.0); PLATELET COUNT 88 TH/MM3 (150-450); RED CELL DISTRIBUTION WIDTH 14.6 % (11.6-17.2); WHITE BLOOD COUNT 6.6 TH/MM3 (4.0-11.0)
[2017-04-18 05:32] LABS: HEMO FLAGS AUTO DIFF
[2017-04-18 06:10] LABS: BICARBONATE 26.7 MEQ/L (21.0-32.0)
[2017-04-18 08:11] LABS: PLATELET ESTIMATE SMEAR LOW (NORMAL); PLATELET MORPHOLOGY NORMAL (NORMAL); SCAN/DIFF AUTO DIFF CONFIRMED
[2017-04-18] MEDS: BUDESONIDE-FORMOTEROL 160/4.5 MCG INHALER INH SCH ×2 (09:00→21:31)
[2017-04-18] MEDS: PANTOPRAZOLE SOD 40 MG DELAYED RELEASE TAB PO SCH (09:27)
[2017-04-18] MEDS: LOSARTAN 50 MG TAB PO SCH (09:27)
[2017-04-18] MEDS: GABAPENTIN 300 MG CAP PO SCH ×2 (09:27→21:31)
[2017-04-18] MEDS: amLODIPine BESYLATE 5 MG TAB PO SCH (09:28)
[2017-04-18] MEDS: ASPIRIN 81 MG CHEW TAB CHEW SCH (09:28)
[2017-04-18] MEDS: ATENOLOL 50 MG TAB PO SCH (09:28)
[2017-04-18] MEDS: SODIUM CHLORIDE 0.9% FLUSH 10 ML FLUSH IV FLUSH SCH ×2 (09:30→21:31)
--- NOTE | 2017-04-18 10:32 | MA ---
cc: RYAN RAMIREZ DO DATE: April 17, 2017 PROCEDURE Coronary angiogram, right heart catheterization. PREPROCEDURE DIAGNOSIS Severe aortic stenosis by echocardiogram, CT of coronary showing possible significant lesion, chest pain. POSTPROCEDURE DIAGNOSIS Severe aortic stenosis by echocardiogram, mild coronary artery disease, mild pulmonary hypertension (type 2 secondary to elevated left-sided filling pressures). MEDICATIONS 1. Fentanyl 50 mcg. 2. Hydralazine 10 mg. CONTRAST 70 cc. FLUOROSCOPY TIME: Fluoroscopy 4.1 minutes SEDATION: Moderate sedation zero minutes. ESTIMATED BLOOD LOSS 10 cc PROCEDURAL SUMMARY Megan العلي is a pleasant 61-year-old [place]-speaking female who presented to [facility] due to chest pain. She underwent a CTA of her coronaries which showed possible disease as well as an echocardiogram which showed severe aortic stenosis. Because of her severe aortic stenosis and possible coronary artery disease. She was recommended right and left heart catheterization for further workup. The Risks, benefits and alternatives were explained to her through a electric motor winder and she consented. She was brought to lab and prepped in the usual sterile fashion. Right femoral artery was accessed using a modified Seldinger technique and placement of a 5-Occitan sheath. Her right femoral vein was accessed using modified Seldinger technique and placement of a 7-Occitan sheath. Both sheaths were easily aspirated and flushed. A Placida-Delmer catheter was advanced up the femoral vein to wedge position and oxygen saturations as well as pressures were measured in a standard fashion upon pullback. The Placida-Delmer catheter was removed. The JR-4 was advanced over a J-wire to the ascending aorta and as she has known aortic stenosis. It was not felt prudent to cross her aortic valve at this time. A JR-4 was used for selective angiography of the right coronary artery. This was exchanged out for a JL-4 which was used for selective angiography of left coronary artery. JL-4 was removed over a J-wire. Sheaths were removed and pressure was held for hemostasis. The patient left the crime lab analyst cardiovascularly stable. FINDINGS Left main normal size vessel with mild luminal irregularities. It bifurcates into an LAD and circumflex. LAD normal-size vessel with mild disease in the proximal portion of 20% and diffuse mild luminal irregularities throughout the hps-ai-lpwcyi portion. It gives off a two diagonals with the first diagonal being larger and no significant disease in the second diagonal slightly smaller with mild luminal irregularities. Left circumflex normal size vessel with no significant disease. It gives off two obtuse marginals with no significant disease. RCA normal-size vessel with 20% disease in the midportion. It is a dominant vessel by nature and has a small PDA with 30% disease in the ostial portion. HEMODYNAMIC RESULTS Right atrium RA18. RV 48 / 10, RVEDP 21. PA 49/23, mean PA 35. Wedge 27. IMPRESSION 1. Severe aortic stenosis by echocardiogram. 2. Mild coronary artery disease by cardiac catheterization. 3. Mild pulmonary hypertension (type 2 secondary to elevated left-sided filling pressures). RECOMMENDATIONS 1. Miss العلي presented with chest pain and this may be due to her severe aortic stenosis. 2. She has mild coronary artery disease by cardiac catheterization with no significant lesions noted. 3. She continues to have mild pulmonary hypertension (type 2) due to elevated left ventricular pressures and she may need to be diuresed gently. 4. She will be evaluated by CT surgery for possible AVR. Thank you for allowing me to see Megan العلي if there are any questions please do not hesitate to call. Ryan Ramirez DO VGP/ /12:31 AM /10:25 AM
--- NOTE | 2017-04-18 11:23 | PD.CONS ---
History of Present Illness Service CT Surgery Consult Requested By Dr. Atkinson Reason for Consult Severe aortic stenosis, h/o fall, chest pain, exertional dyspnea Primary Care Physician Unknown Diagnoses: History of Present Illness 61y/o female presents with chest pain. She does not speak Dominican, so I interviewed her with the assistance of a web-based inspector purchased parts. She was thought to have acute coronary syndrome, but ruled-out for KS. She underwent coronary CTA which shows coronary calcification as well as heavy calcification of the aortic valve and annulus. I measured her annulus at 18mm on that study, but the plane is not perfect. She underwent ECHO which shows severe with a calculated valve area of 0.66cm2. She has significant LVH with an EF ~75%. Her annulus measured 18mm on that study as well. She has a h/o falls in the past hitting her head 2 weeks ago. She c/o frontal headaches since that fall. She denies LOC, seizure, incontinence. She denies PND, orthopnea, palpitations. Review of Systems Constitutional: COMPLAINS OF: Fatigue, DENIES: Diaphoretic episodes, Fever, Weight gain, Weight loss, Chills, Dizziness, Change in appetite, Night Sweats Endocrine: DENIES: Abnorml menstrual pattern, Heat/cold intolerance, Polydipsia , Polyuria, Polyphagia Eyes: DENIES: Blurred vision, Diplopia, Eye inflammation, Eye pain, Vision loss , Photosensitivity, Double Vision Ears, nose, mouth, throat: DENIES: Tinnitus, Hearing loss, Vertigo, Nasal discharge, Oral lesions, Throat pain, Hoarseness, Ear Pain, Running Nose, Epistaxis, Sinus Pain, Toothache, Odynophagia Respiratory: DENIES: Apneas, Cough, Snoring, Wheezing, Hemoptysis, Sputum production, Shortness of breath Cardiovascular: COMPLAINS OF: Chest pain, Dyspnea on Exertion, Lower Extremity Edema, DENIES: Palpitations, Syncope, PND, Orthopnea, Claudication Gastrointestinal: DENIES: Abdominal pain, Black stools, Bloody stools, Constipation, Diarrhea, Nausea, Vomiting, Difficulty Swallowing, Anorexia Genitourinary: DENIES: Abnormal vaginal bleeding, Dysmenorrhea, Dyspareunia, Sexual dysfunction, Urinary frequency, Urinary incontinence, Urgency, Hematuria , Dysuria, Nocturia, Vaginal discharge Musculoskeletal: COMPLAINS OF: Joint pain, Stiffness, Joint Swelling Integumentary: DENIES: Abnormal pigmentation, Pruritus, Rash, Nail changes, Breast masses, Breast skin changes, Nipple discharge Hematologic/lymphatic: DENIES: Bruising, Lymphadenopathy Immunologic/allergic: DENIES: Eczema, Urticaria Neurologic: COMPLAINS OF: Abnormal gait, Poor Balance Psychiatric: DENIES: Anxiety, Confusion, Mood changes, Depression, Hallucinations, Agitation, Suicidal Ideation, Homicidal Ideation, Delusions Past Family Social History Allergies: Coded Allergies: No Known Allergies (Unverified , 10/13/16) Past Medical History HTN Reactive airway disease Arthritis Hepatitis C Past Surgical History C section Reported Medications Advair Diskus Inh (Fluticasone-Salmeterol Inh) 250-50 Mcg/Blist Aer 1 Puff INH BID Rinse mouth after use. Amlodipine (Amlodipine Besylate) 2.5 Mg Tab 2.5 Mg PO DAILY Vitamin D (Cholecalciferol) 2,000 Unit Cap 50,000 Units PO WEEKLY Losartan (Losartan Potassium) 50 Mg Tab 50 Mg PO DAILY Gabapentin 300 Mg Cap 300 Mg PO BID Proair Hfa 8.5 GM Inh (Albuterol Sulfate) 90 Mcg/Act Aer 1 Puff INH Q4H PRN 108 mcg/actuation Protonix (Pantoprazole Sodium) 40 Mg Tab 40 Mg PO DAILY Atenolol 50 Mg Tab 50 Mg PO DAILY Aspirin 81 Mg Chew 81 Mg CHEW DAILY Active Ordered Medications Current Medications Medications (Trade) Dose Ordered Sig/Susan Route Start Time Stop Time Status Last Admin (NS Flush) 2 ml UNSCH PRN IVF 04/16/17 10:00 (NS Flush) 2 ml BID IV FLUSH 04/16/17 21:00 04/18/17 09:30 (Tylenol) 500 mg Q4H PRN PO 04/16/17 13:00 04/17/17 21:57 (Zofran Inj) 4 mg Q6H PRN IV PUSH 04/16/17 13:00 (Nitrostat Sl) 0.4 mg Q5M PRN SL 04/16/17 13:00 (Albuterol Neb) 2.5 mg Q2HR NEB PRN NEB 04/16/17 15:30 (Norvasc) 2.5 mg DAILY PO 04/17/17 09:00 04/18/17 09:28 (Tenormin) 50 mg DAILY PO 04/17/17 09:00 04/18/17 09:28 (Neurontin) 300 mg BID PO 04/16/17 21:00 04/18/17 09:27 (Cozaar) 50 mg DAILY PO 04/17/17 09:00 04/18/17 09:27 (Protonix) 40 mg DAILY PO 04/17/17 09:00 04/18/17 09:27 (Drisdol) 50,000 units Fr@0900 PO 04/17/17 09:00 04/17/17 10:06 (Symbicort 160-4.5 Inh) 2 puff BID INH 04/16/17 21:00 04/17/17 21:00 (Aspirin Chew) 81 mg DAILY CHEW 04/18/17 09:00 04/18/17 09:28 Family History Unremarkable Social History Denies tobacco, ETOH Physical Exam Vital Signs Vital Signs Date Time Temp Pulse Resp B/P (MAP) Pulse Ox O2 Delivery O2 Flow Rate FiO2 04/18/17 10:00 62 04/18/17 09:00 63 04/18/17 08:00 65 04/18/17 07:00 98.3 71 18 156/82 (106) 95 04/18/17 07:00 65 04/18/17 06:00 76 04/18/17 05:00 66 04/18/17 04:00 64 04/18/17 03:00 98.9 67 22 147/57 (87) 95 04/18/17 03:00 62 04/18/17 02:30 95 04/18/17 02:00 70 04/18/17 01:00 70 04/18/17 00:00 68 04/17/17 23:30 98.7 71 24 139/73 (95) 95 04/17/17 23:00 69 04/17/17 22:00 70 04/17/17 21:30 98.5 68 24 132/69 (90) 97 04/17/17 21:00 70 04/17/17 19:16 94 Room Air 04/17/17 11:45 97.4 63 20 132/58 (82) 95 04/17/17 11:14 62 133/69 (90) 04/17/17 11:00 62 18 157/72 (100) Physical Exam GENERAL: This is an obese, well-developed patient, in no apparent distress. SKIN: No rashes, ecchymoses or lesions. Cool and dry. HEAD: Atraumatic. Normocephalic. No temporal or scalp tenderness. EYES: Pupils equal round and reactive. Extraocular motions intact. No scleral icterus. No injection or drainage. ENT: Nose without bleeding, purulent drainage or septal hematoma. Throat without erythema, tonsillar hypertrophy or exudate. Uvula midline. Airway patent. NECK: Trachea midline. No JVD or lymphadenopathy. Supple, nontender, no meningeal signs. CARDIOVASCULAR: Regular rate and rhythm with 2/6 PRECIOUS at the RUSB. RESPIRATORY: Clear to auscultation. Breath sounds equal bilaterally. No wheezes , rales, or rhonchi. GASTROINTESTINAL: Abdomen soft, non-tender, nondistended. No hepato-splenomegaly , or palpable masses. No guarding. MUSCULOSKELETAL: Extremities without clubbing, cyanosis, or edema. She has bilateral deformities in the MCP, PIP, and DIp joints in both hands. No calf tenderness. Negative Homans sign bilaterally. NEUROLOGICAL: Awake and alert. Cranial nerves II through XII intact. Motor and sensory grossly within normal limits. Five out of 5 muscle strength in all muscle groups. Normal speech. Laboratory Laboratory Tests Test 04/18/17 03:52 04/18/17 05:58 White Blood Count 6.6 Red Blood Count 3.70 Hemoglobin 11.4 Hematocrit 32.5 Mean Corpuscular Volume 87.9 Mean Corpuscular Hemoglobin 30.7 Mean Corpuscular Hemoglobin Concent 35.0 Red Cell Distribution Width 14.6 Platelet Count 88 Mean Platelet Volume 8.6 Neutrophils (%) (Auto) 63.3 Lymphocytes (%) (Auto) 23.2 Monocytes (%) (Auto) 11.2 Eosinophils (%) (Auto) 2.0 Basophils (%) (Auto) 0.3 Neutrophils # (Auto) 4.2 Lymphocytes # (Auto) 1.5 Monocytes # (Auto) 0.7 Eosinophils # (Auto) 0.1 Basophils # (Auto) 0.0 CBC Comment AUTO DIFF Differential Comment AUTO DIFF CONFIRMED Platelet Estimate LOW Platelet Morphology Comment NORMAL Blood Urea Nitrogen 20 Creatinine 0.50 Random Glucose 86 Calcium Level 8.7 Sodium Level 141 Potassium Level 4.0 Chloride Level 107 Carbon Dioxide Level 26.7 Anion Gap 7 Estimat Glomerular Filtration Rate 126 Result Diagram: 04/18/17 0352 04/18/17 0558 Imaging Last Impressions Coronary Angiography CT 04/17/17 0000 Signed Impressions: Service Date/Time: Monday, April 17, 2017 11:02 - CONCLUSION: 1. Multiple areas of stenosis involving the possible third of the left anterior descending artery. Catheter angiography is recommended for further evaluation if clinically indicated. Lenny Swanson MD Chest X-Ray 04/16/17 0951 Signed Impressions: Service Date/Time: April 10:04 - CONCLUSION: No acute disease. Mayank Banerjee MD Head CT 04/16/17 0000 Signed Impressions: Service Date/Time: , April 16, 2017 11:43 - CONCLUSION: Normal examination. Jg Corcoran MD Course Patient is currently comfortable with no complaints. She is is obese and requires a walker to ambulate. She has a h/o multiple falls and significant arthritis. She states she completes her ADLs unassisted. Assessment and Plan Problem List: (1) Aortic stenosis ICD Codes: I35.0 - Nonrheumatic aortic (valve) stenosis (2) Diastolic CHF due to valvular disease ICD Codes: I38 - Endocarditis, valve unspecified; I50.30 - Unspecified diastolic (congestive) heart failure (3) Chest pain ICD Codes: R07.9 - Chest pain, unspecified Status: Acute Assessment and Plan 61 y/o obese female presents with severe symptomatic . She underwent LHC yesterday and does not have significant obstructive CAD. AVR is recommended. Her STS risk profile follows: Risk Model and Variables - STS Adult Cardiac Surgery Database Version 2.81 RISK SCORES About the STS Risk Calculator Procedure: AV Replacement Risk of Mortality: 1.459% Morbidity or Mortality: 10.795% Long Length of Stay: 4.636% Short Length of Stay: 41.759% Permanent Stroke: 0.623% Prolonged Ventilation: 6.769% DSW Infection: 0.142% Renal Failure: 1.788% Reoperation: 5.594% Although her risk for surgical AVR is low, she is frail for her age and has a small aortic annulus. She would likely benefit from TAVR vs open AVR due to the possibility of patient prosthetic mismatch and overall functional status. There are published studies showing better hemodynamic performance with TAVR than open AVR in such patients. If she is not a TAVR candidate, then open AVR would be recommended. But, her functional recovery and the need for an extensive annular enlargement or root replacement would be considerations in this decision. I have discussed her with Dr. Atkinson and our TAVR coordinator. She should stay in the hospital until Thursday when Dr. Stubbs can speak with her and a TAVR CT can be performed. Problem Qualifiers (1) Aortic stenosis: Qualified Codes: I35.0 - Nonrheumatic aortic (valve) stenosis (2) Chest pain: Qualified Codes: R07.9 - Chest pain, unspecified Mansi Orellana MD Apr 18, 2017 11:23
--- NOTE | 2017-04-18 11:40 | PD.CARD.PN ---
Subjective Subjective Remarks No events overnight Doing well Objective Medications Current Medications Medications (Trade) Dose Ordered Sig/Susan Route Start Time Stop Time Status Last Admin (NS Flush) 2 ml UNSCH PRN IVF 04/16/17 10:00 (NS Flush) 2 ml BID IV FLUSH 04/16/17 21:00 04/18/17 09:30 (Tylenol) 500 mg Q4H PRN PO 04/16/17 13:00 04/17/17 21:57 (Zofran Inj) 4 mg Q6H PRN IV PUSH 04/16/17 13:00 (Nitrostat Sl) 0.4 mg Q5M PRN SL 04/16/17 13:00 (Albuterol Neb) 2.5 mg Q2HR NEB PRN NEB 04/16/17 15:30 (Norvasc) 2.5 mg DAILY PO 04/17/17 09:00 04/18/17 09:28 (Tenormin) 50 mg DAILY PO 04/17/17 09:00 04/18/17 09:28 (Neurontin) 300 mg BID PO 04/16/17 21:00 04/18/17 09:27 (Cozaar) 50 mg DAILY PO 04/17/17 09:00 04/18/17 09:27 (Protonix) 40 mg DAILY PO 04/17/17 09:00 04/18/17 09:27 (Drisdol) 50,000 units Fr@0900 PO 04/17/17 09:00 04/17/17 10:06 (Symbicort 160-4.5 Inh) 2 puff BID INH 04/16/17 21:00 04/17/17 21:00 (Aspirin Chew) 81 mg DAILY CHEW 04/18/17 09:00 04/18/17 09:28 Vital Signs / I&O Vital Signs Date Time Temp Pulse Resp B/P (MAP) Pulse Ox O2 Delivery O2 Flow Rate FiO2 04/18/17 10:00 62 04/18/17 09:00 63 04/18/17 08:00 65 04/18/17 07:00 98.3 71 18 156/82 (106) 95 04/18/17 07:00 65 04/18/17 06:00 76 04/18/17 05:00 66 04/18/17 04:00 64 04/18/17 03:00 98.9 67 22 147/57 (87) 95 04/18/17 03:00 62 04/18/17 02:30 95 04/18/17 02:00 70 04/18/17 01:00 70 04/18/17 00:00 68 04/17/17 23:30 98.7 71 24 139/73 (95) 95 04/17/17 23:00 69 04/17/17 22:00 70 04/17/17 21:30 98.5 68 24 132/69 (90) 97 04/17/17 21:00 70 04/17/17 19:16 94 Room Air 04/17/17 11:45 97.4 63 20 132/58 (82) 95 I/O 04/17/17 04/17/17 04/17/17 04/18/17 04/18/17 04/18/17 07:00 15:00 23:00 07:00 15:00 23:00 Intake Total 240 ml Output Total 425 ml Balance -185 ml Intake Oral 240 ml Output Urine Total 425 ml # Voids 1 1 Physical Exam GENERAL: NAD, AAOx3 SKIN: Warm and dry. HEAD: Atraumatic. Normocephalic. EYES: Pupils equal and round. No scleral icterus. No injection or drainage. ENT: No nasal bleeding or discharge. Mucous membranes pink and moist. NECK: Trachea midline. No JVD. CARDIOVASCULAR: Regular rate and rhythm. 3/6 crescendo-decrescendo murmur to the RSB RESPIRATORY: No accessory muscle use. Clear to auscultation. Breath sounds equal bilaterally. GASTROINTESTINAL: Abdomen soft, non-tender, nondistended. Hepatic and splenic margins not palpable. MUSCULOSKELETAL: Extremities without clubbing, cyanosis, or edema. No obvious deformities. Right femoral with no hematoma/bruit NEUROLOGICAL: Awake and alert. No obvious cranial nerve deficits. Motor grossly within normal limits. Five out of 5 muscle strength in the arms and legs. Normal speech. PSYCHIATRIC: Appropriate mood and affect; insight and judgment normal. Laboratory Laboratory Tests Test 04/18/17 03:52 04/18/17 05:58 White Blood Count 6.6 TH/MM3 Red Blood Count 3.70 MIL/MM3 Hemoglobin 11.4 GM/DL Hematocrit 32.5 % Mean Corpuscular Volume 87.9 FL Mean Corpuscular Hemoglobin 30.7 PG Mean Corpuscular Hemoglobin Concent 35.0 % Red Cell Distribution Width 14.6 % Platelet Count 88 TH/MM3 Mean Platelet Volume 8.6 FL Neutrophils (%) (Auto) 63.3 % Lymphocytes (%) (Auto) 23.2 % Monocytes (%) (Auto) 11.2 % Eosinophils (%) (Auto) 2.0 % Basophils (%) (Auto) 0.3 % Neutrophils # (Auto) 4.2 TH/MM3 Lymphocytes # (Auto) 1.5 TH/MM3 Monocytes # (Auto) 0.7 TH/MM3 Eosinophils # (Auto) 0.1 TH/MM3 Basophils # (Auto) 0.0 TH/MM3 CBC Comment AUTO DIFF Differential Comment AUTO DIFF CONFIRMED Platelet Estimate LOW Platelet Morphology Comment NORMAL Blood Urea Nitrogen 20 MG/DL Creatinine 0.50 MG/DL Random Glucose 86 MG/DL Calcium Level 8.7 MG/DL Sodium Level 141 MEQ/L Potassium Level 4.0 MEQ/L Chloride Level 107 MEQ/L Carbon Dioxide Level 26.7 MEQ/L Anion Gap 7 MEQ/L Estimat Glomerular Filtration Rate 126 ML/MIN Assessment and Plan Problem List: (1) Aortic stenosis ICD Codes: I35.0 - Nonrheumatic aortic (valve) stenosis (2) Chest pain ICD Codes: R07.9 - Chest pain, unspecified Status: Acute (3) Diastolic CHF due to valvular disease ICD Codes: I38 - Endocarditis, valve unspecified; I50.30 - Unspecified diastolic (congestive) heart failure Assessment and Plan 1) Severe by echo (peak 64, mean 40, CHING 0.66) 2) No significant CAD 3) Discussed with Dr. Orellana, agree with him that due to her frailty as well as her annulus size, she would be a better TAVR candidate Will have structural heart team evaluate her on Thursday for further insight 4) Will plan on CTA for TAVR evaluation and to better analyze the size of her aortic annulus Problem Qualifiers (1) Aortic stenosis: Qualified Codes: I35.0 - Nonrheumatic aortic (valve) stenosis (2) Chest pain: Qualified Codes: R07.9 - Chest pain, unspecified Ryan Atkinson DO Apr 18, 2017 11:40
--- NOTE | 2017-04-18 12:22 | HHI.PR ---
Subjective Remarks This is a pleasant 61 y/o Female with Hypertension, Anxiety disorder, asthma, who came to ER with Atypical chest pain and headache, non pleuritic chest pain, No associated symptoms of nausea, vomiting, diaphoresis, or shortness of breath. No known precipitating or relieving factors. Reported fall one month before coming to ER, Denies syncopal episodes.she has also Hepatitis C, COPD, status post Coronary angiogram, right Heart Catheterization, 04/17/17, with diagnosis of Severe Aortic Stenosis by echocardiogram, Mild coronary artery disease, mild pulmonary hypertension, discussed with vehicle care specialist doctor Ryan Atkinson he wants the patient to rule out Brain pathology for headache, will perform CT brain no contrast. Seen by Cardiothoracic certified medical coding specialist doctor Mansi Orellana, status post Coronary CTA showing Coronary calcifications as well as Heavy calcifications of the aortic valve and annulus calculated area on Ultrasound 0.66 cm2, left ventricular Hypertension EF 75%, status post fall with head injury continue with frontal headaches since the fall. she will be evaluated next 04/20/[address] Stubbs for probable Transcatheter Aortic valve replacement. Objective Vital Signs Date Time Temp Pulse Resp B/P (MAP) Pulse Ox O2 Delivery O2 Flow Rate FiO2 04/18/17 11:00 97.4 77 16 152/67 (95) 04/18/17 11:00 65 04/18/17 10:00 62 04/18/17 09:00 63 04/18/17 08:00 65 04/18/17 07:00 98.3 71 18 156/82 (106) 95 04/18/17 07:00 65 04/18/17 06:00 76 04/18/17 05:00 66 04/18/17 04:00 64 04/18/17 03:00 98.9 67 22 147/57 (87) 95 04/18/17 03:00 62 04/18/17 02:30 95 04/18/17 02:00 70 04/18/17 01:00 70 04/18/17 00:00 68 04/17/17 23:30 98.7 71 24 139/73 (95) 95 04/17/17 23:00 69 04/17/17 22:00 70 04/17/17 21:30 98.5 68 24 132/69 (90) 97 04/17/17 21:00 70 04/17/17 19:16 94 Room Air I/O 04/17/17 04/17/17 04/17/17 04/18/17 04/18/17 04/18/17 07:00 15:00 23:00 07:00 15:00 23:00 Intake Total 240 ml Output Total 425 ml Balance -185 ml Intake Oral 240 ml Output Urine Total 425 ml # Voids 1 1 Result Diagram: 04/18/17 0352 04/18/17 0558 Imaging Last Impressions Coronary Angiography CT 04/17/17 0000 Signed Impressions: Service Date/Time: Monday, April 17, 2017 11:02 - CONCLUSION: 1. Multiple areas of stenosis involving the possible third of the left anterior descending artery. Catheter angiography is recommended for further evaluation if clinically indicated. Lenny Swanson MD Chest X-Ray 04/16/17 0951 Signed Impressions: Service Date/Time: April 10:04 - CONCLUSION: No acute disease. Mayank Banerjee MD Head CT 04/16/17 0000 Signed Impressions: Service Date/Time: April 11:43 - CONCLUSION: Normal examination. Jg Corcoran MD Procedures Cardiac Catheterization. Other Results Laboratory Tests Test 04/16/17 10:00 04/16/17 13:00 04/16/17 16:30 04/18/17 03:52 Prothrombin Time 11.7 SEC Prothromb Time International Ratio 1.1 RATIO Activated Partial Thromboplast Time 27.4 SEC Blood Urea Nitrogen 10 MG/DL Creatinine 0.58 MG/DL Random Glucose 104 MG/DL Calcium Level 8.5 MG/DL Magnesium Level 1.5 MG/DL Sodium Level 139 MEQ/L Potassium Level 3.6 MEQ/L Chloride Level 106 MEQ/L Carbon Dioxide Level 26.3 MEQ/L Creatine Kinase MB 1.2 NG/ML Total Creatine Kinase 89 U/L Troponin I LESS THAN 0.02 NG/ML White Blood Count 6.6 TH/MM3 Red Blood Count 3.70 MIL/MM3 Hemoglobin 11.4 GM/DL Hematocrit 32.5 % Mean Corpuscular Volume 87.9 FL Mean Corpuscular Hemoglobin 30.7 PG Mean Corpuscular Hemoglobin Concent 35.0 % Red Cell Distribution Width 14.6 % Platelet Count 88 TH/MM3 Mean Platelet Volume 8.6 FL Neutrophils (%) (Auto) 63.3 % Lymphocytes (%) (Auto) 23.2 % Monocytes (%) (Auto) 11.2 % Eosinophils (%) (Auto) 2.0 % Basophils (%) (Auto) 0.3 % Neutrophils # (Auto) 4.2 TH/MM3 Lymphocytes # (Auto) 1.5 TH/MM3 Monocytes # (Auto) 0.7 TH/MM3 Eosinophils # (Auto) 0.1 TH/MM3 Basophils # (Auto) 0.0 TH/MM3 CBC Comment AUTO DIFF Differential Comment AUTO DIFF CONFIRMED Platelet Estimate LOW Platelet Morphology Comment NORMAL Test 04/18/17 05:58 Blood Urea Nitrogen 20 MG/DL Creatinine 0.50 MG/DL Random Glucose 86 MG/DL Calcium Level 8.7 MG/DL Sodium Level 141 MEQ/L Potassium Level 4.0 MEQ/L Chloride Level 107 MEQ/L Carbon Dioxide Level 26.7 MEQ/L Anion Gap 7 MEQ/L Estimat Glomerular Filtration Rate 126 ML/MIN Albumin 2.7 GM/DL Objective Remarks GENERAL: Obese, no acute distress. EYES: Sclera clear, conjunctiva without injection ENT: Mucous membranes pink and moist NECK: Supple, no masses, trachea midline, exquisite pain on palpation of Muscles on Occipital area. and Neck. CV: RRR, 3-4/6 systolic murmur with radiation of sound to bilateral carotid bruits. No rub, gallop, no JVD. Chest wall nontender with palpation. RESP: Clear to auscultation bilateral, no wheezing or crackles. ABD: Soft, non tender, positive bowel sounds. EXT: No clubbing, cyanosis or edema. NEURO: CN II through CN XII grossly intact, motor strength 5/5 PSYCH: Alert and oriented. Medications and IVs Current Medications Medications (Trade) Dose Ordered Sig/Susan Route Start Time Stop Time Status Last Admin (NS Flush) 2 ml UNSCH PRN IVF 04/16/17 10:00 (NS Flush) 2 ml BID IV FLUSH 04/16/17 21:00 04/18/17 09:30 (Tylenol) 500 mg Q4H PRN PO 04/16/17 13:00 04/17/17 21:57 (Zofran Inj) 4 mg Q6H PRN IV PUSH 04/16/17 13:00 (Nitrostat Sl) 0.4 mg Q5M PRN SL 04/16/17 13:00 (Albuterol Neb) 2.5 mg Q2HR NEB PRN NEB 04/16/17 15:30 (Norvasc) 2.5 mg DAILY PO 04/17/17 09:00 04/18/17 09:28 (Tenormin) 50 mg DAILY PO 04/17/17 09:00 04/18/17 09:28 (Neurontin) 300 mg BID PO 04/16/17 21:00 04/18/17 09:27 (Cozaar) 50 mg DAILY PO 04/17/17 09:00 04/18/17 09:27 (Protonix) 40 mg DAILY PO 04/17/17 09:00 04/18/17 09:27 (Drisdol) 50,000 units Fr@0900 PO 04/17/17 09:00 04/17/17 10:06 (Symbicort 160-4.5 Inh) 2 puff BID INH 04/16/17 21:00 04/17/17 21:00 (Aspirin Chew) 81 mg DAILY CHEW 04/18/17 09:00 04/18/17 09:28 A/P Assessment and Plan 1. Atypical chest pain status post Cardiac Cath found Severe Aortic Stenosis, status post Cardiac Catheterization discussed with Doctor Ryan Atkinson and with Doctor Mansi Orellana, patient status Coronary CTA showing Coronary calcifications as well as Heavy calcifications of the aortic valve and annulus calculated area on Ultrasound 0.66 cm2, left ventricular Hypertension EF 75%, she will be evaluated next 04/20/[address] Stubbs for probable Transcatheter Aortic valve replacement. 2. Aortic Stenosis See #1 3. Asthma stable 4. Hypertension controlled. 5. GERD on Protonix 6. Headache Head CT Negative. Exquisite palpation on her Muscles on Occipital area. will give her scheduled low dose of Diazepam and NSAID for one day and follow. 7. Obesity strongly recommended diet and exercise. as outpatient. DVT prophylaxis with SCDs Discussed in the room with patient and her . Discharge Planning Awaiting for 04/20/17 for discharge. Jaylon Bañuelos MD Apr 18, 2017 12:22 pm
[2017-04-18] MEDS ORDERED: IOHEXOL 350 MG/ML 10 ML VIAL (for RAD DIAG) IVCONTRAST ONE (13:32)
[2017-04-18] MEDS ORDERED: LIDOCAINE HCL 5% PATCH T-DERMAL ONE (15:15)
--- NOTE | 2017-04-18 15:39 | RADRPT ---
EXAM DATE/TIME: 04/18/2017 13:19 [place] COMPARISON: No previous studies available for comparison. INDICATIONS : Pre-operative evaluation for TAVR procedure. IV CONTRAST: 100 cc Omnipaque 350 (iohexol) IV RADIATION DOSE: 53.72 CTDIvol (mGy) MEDICAL HISTORY : Cardiovascular disease. Hypertension. Hepatitis C. SURGICAL HISTORY : None. ENCOUNTER: Initial ACUITY: 1 day PAIN SCALE: 0/10 LOCATION: Bilateral chest TECHNIQUE: Volumetric scanning was performed using a multi-row detector CT scanner. The data was post processed with a variety of visualization algorithms including full volume maximum intensity projection, multi -planar sliding thin slab reformation, curved planar reformation, and surface rendering techniques. Using automated exposure control and adjustment of the mA and/or kV according to patient size, radiat ion dose was kept as low as reasonably achievable to obtain optimal diagnostic quality images. DIC OM format image data is available electronically for review and comparison. FINDINGS: CARDIAC: The coronary system is right dominant. Coronary artery calcifications are present. There is no pericardial effusion AORTIC ROOT/VALVE: 3 aortic valve csps are evident with calcifications. The aortic root measures 30 mm Mid thoracic aorta measures 24 with no calcifications. THORACIC AORTA: Aberrant right Subclavian artery is present ABDOMINAL AORTA: No evidence of aneurysm, mural thrombus, dissection, mural calcification, or stenosis. CELIAC ARTERY: Celiac artery is widely patent. SMA: Superior mesenteric artery is widely patent. RIGHT RENAL ARTERY: Right renal artery is widely patent. LEFT RENAL ARTERY: Left renal artery is widely patent. RIGHT COMMON ILIAC: No evidence of aneurysm, mural thrombus, dissection, mural calcification, or stenosis. The common fe moral measures 8. LEFT COMMON ILIAC: No evidence of aneurysm, mural thrombus, dissection, mural calcification, or stenosis. The common fe moral measures 8. THORAX: No evidence of acute thoracic abnormality. No masses are identified. ABDOMEN: There is a nodular contour to the liver which may reflect cirrhosis. The spleen is enlargedThere are multiple stones within the gallbladder without wall thickening or pericholecystic fluid the largest m easuring 8 mm. Fat containing umbilical hernia is present. PELVIS: No evidence of acute pelvic process. No masses are identified. CONCLUSION: 1. Vascular measurements as above. Aberrant right subclavian artery is present 2. Findings of cirrhosis with portal hypertension 3. Cholelithiasis Lenny Swanson MD on April 18, 2017 at 15:14 Board Certified Radiologist. This report was verified electronically.
[2017-04-18] MEDS: DIAZEPAM 5 MG TAB PO SCH ×2 (15:47→21:31)
[2017-04-19] VITALS (24 sets, daily range): BP systolic 140–161; BP diastolic 60–76; PULSE 61–90; RESP 17–24; TEMP 97.9–98.9; O2SAT 92–96
[2017-04-19] MEDS: GABAPENTIN 300 MG CAP PO SCH ×2 (08:29→20:13)
[2017-04-19] MEDS: PANTOPRAZOLE SOD 40 MG DELAYED RELEASE TAB PO SCH (08:29)
[2017-04-19] MEDS: DIAZEPAM 5 MG TAB PO SCH ×2 (08:29→20:13)
[2017-04-19] MEDS: ATENOLOL 50 MG TAB PO SCH (08:29)
[2017-04-19] MEDS: LOSARTAN 50 MG TAB PO SCH (08:29)
[2017-04-19] MEDS: amLODIPine BESYLATE 5 MG TAB PO SCH (08:29)
[2017-04-19] MEDS: BUDESONIDE-FORMOTEROL 160/4.5 MCG INHALER INH SCH ×2 (08:30→20:14)
[2017-04-19] MEDS: ASPIRIN 81 MG CHEW TAB CHEW SCH (08:33)
[2017-04-19] MEDS: SODIUM CHLORIDE 0.9% FLUSH 10 ML FLUSH IV FLUSH SCH ×2 (08:33→20:14)
--- NOTE | 2017-04-19 10:34 | PD.CARD.PN ---
Subjective Subjective Remarks No events overnight Doing well Still with a headache on and off Objective Medications Current Medications Medications (Trade) Dose Ordered Sig/Susan Route Start Time Stop Time Status Last Admin (NS Flush) 2 ml UNSCH PRN IVF 04/16/17 10:00 (NS Flush) 2 ml BID IV FLUSH 04/16/17 21:00 04/19/17 08:33 (Tylenol) 500 mg Q4H PRN PO 04/16/17 13:00 04/17/17 21:57 (Zofran Inj) 4 mg Q6H PRN IV PUSH 04/16/17 13:00 (Nitrostat Sl) 0.4 mg Q5M PRN SL 04/16/17 13:00 (Albuterol Neb) 2.5 mg Q2HR NEB PRN NEB 04/16/17 15:30 (Norvasc) 2.5 mg DAILY PO 04/17/17 09:00 04/19/17 08:29 (Tenormin) 50 mg DAILY PO 04/17/17 09:00 04/19/17 08:29 (Neurontin) 300 mg BID PO 04/16/17 21:00 04/19/17 08:29 (Cozaar) 50 mg DAILY PO 04/17/17 09:00 04/19/17 08:29 (Protonix) 40 mg DAILY PO 04/17/17 09:00 04/19/17 08:29 (Drisdol) 50,000 units Fr@0900 PO 04/17/17 09:00 04/17/17 10:06 (Symbicort 160-4.5 Inh) 2 puff BID INH 04/16/17 21:00 04/19/17 08:30 (Aspirin Chew) 81 mg DAILY CHEW 04/18/17 09:00 04/18/17 09:28 (Valium) 5 mg Q12HR PO 04/18/17 15:15 04/20/17 06:00 04/19/17 08:29 Vital Signs / I&O Vital Signs Date Time Temp Pulse Resp B/P (MAP) Pulse Ox O2 Delivery O2 Flow Rate FiO2 04/19/17 08:00 62 04/19/17 07:15 75 04/19/17 07:15 97.9 67 18 161/76 (104) 94 04/19/17 06:00 64 04/19/17 05:00 64 04/19/17 04:00 62 04/19/17 03:00 66 04/19/17 03:00 98.2 68 20 160/67 (98) 94 04/19/17 02:00 68 04/19/17 01:00 64 04/19/17 00:00 68 04/18/17 23:00 69 04/18/17 23:00 99.0 72 22 155/58 (90) 95 Manual Cuff/Auscultation 04/18/17 22:00 70 04/18/17 21:16 21 04/18/17 21:00 70 04/18/17 20:00 74 04/18/17 20:00 98.9 69 22 122/58 (79) 95 04/18/17 19:00 66 04/18/17 18:00 65 04/18/17 17:00 69 04/18/17 16:00 60 04/18/17 15:00 57 04/18/17 15:00 98.4 63 14 142/74 (96) 97 04/18/17 14:00 60 04/18/17 13:00 60 04/18/17 12:00 68 04/18/17 11:00 97.4 77 16 152/67 (95) 04/18/17 11:00 65 I/O 04/18/17 04/18/17 04/18/17 04/19/17 04/19/17 04/19/17 07:00 15:00 23:00 07:00 15:00 23:00 Intake Total 240 ml 550 ml 240 ml Output Total 425 ml 1500 ml Balance -185 ml 550 ml -1260 ml Intake Oral 240 ml 550 ml 240 ml Output Urine Total 425 ml 1500 ml # Voids 1 6 Physical Exam GENERAL: NAD, AAOx3 SKIN: Warm and dry. HEAD: Atraumatic. Normocephalic. EYES: Pupils equal and round. No scleral icterus. No injection or drainage. ENT: No nasal bleeding or discharge. Mucous membranes pink and moist. NECK: Trachea midline. No JVD. CARDIOVASCULAR: Regular rate and rhythm. 3/6 crescendo-decrescendo murmur to the RSB RESPIRATORY: No accessory muscle use. Clear to auscultation. Breath sounds equal bilaterally. GASTROINTESTINAL: Abdomen soft, non-tender, nondistended. Hepatic and splenic margins not palpable. MUSCULOSKELETAL: Extremities without clubbing, cyanosis, or edema. No obvious deformities. Right femoral with no hematoma/bruit NEUROLOGICAL: Awake and alert. No obvious cranial nerve deficits. Motor grossly within normal limits. Five out of 5 muscle strength in the arms and legs. Normal speech. PSYCHIATRIC: Appropriate mood and affect; insight and judgment normal. Laboratory Laboratory Tests Test 04/16/17 13:00 04/16/17 16:30 04/18/17 03:52 04/18/17 05:58 Total Creatine Kinase 107 U/L (26-192) 89 U/L (26-192) Creatine Kinase MB 1.2 NG/ML (0.5-3.6) Troponin I LESS THAN 0.02 NG/ML LESS THAN 0.02 NG/ML White Blood Count 6.6 TH/MM3 (4.0-11.0) Red Blood Count 3.70 MIL/MM3 (4.00-5.30) Hemoglobin 11.4 GM/DL (11.6-15.3) Hematocrit 32.5 % (35.0-46.0) Mean Corpuscular Volume 87.9 FL (80.0-100.0) Mean Corpuscular Hemoglobin 30.7 PG (27.0-34.0) Mean Corpuscular Hemoglobin Concent 35.0 % (32.0-36.0) Red Cell Distribution Width 14.6 % (11.6-17.2) Platelet Count 88 TH/MM3 (150-450) Mean Platelet Volume 8.6 FL (7.0-11.0) Neutrophils (%) (Auto) 63.3 % (16.0-70.0) Lymphocytes (%) (Auto) 23.2 % (9.0-44.0) Monocytes (%) (Auto) 11.2 % (0.0-8.0) Eosinophils (%) (Auto) 2.0 % (0.0-4.0) Basophils (%) (Auto) 0.3 % (0.0-2.0) Neutrophils # (Auto) 4.2 TH/MM3 (1.8-7.7) Lymphocytes # (Auto) 1.5 TH/MM3 (1.0-4.8) Monocytes # (Auto) 0.7 TH/MM3 (0-0.9) Eosinophils # (Auto) 0.1 TH/MM3 (0-0.4) Basophils # (Auto) 0.0 TH/MM3 (0-0.2) CBC Comment AUTO DIFF Differential Comment AUTO DIFF CONFIRMED Platelet Estimate LOW (NORMAL) Platelet Morphology Comment NORMAL (NORMAL) Blood Urea Nitrogen 20 MG/DL (7-18) Creatinine 0.50 MG/DL (0.50-1.00) Random Glucose 86 MG/DL (74-106) Calcium Level 8.7 MG/DL (8.5-10.1) Sodium Level 141 MEQ/L (136-145) Potassium Level 4.0 MEQ/L (3.5-5.1) Chloride Level 107 MEQ/L (98-107) Carbon Dioxide Level 26.7 MEQ/L (21.0-32.0) Anion Gap 7 MEQ/L (5-15) Estimat Glomerular Filtration Rate 126 ML/MIN (>89) Albumin 2.7 GM/DL (3.4-5.0) Assessment and Plan Problem List: (1) Aortic stenosis ICD Codes: I35.0 - Nonrheumatic aortic (valve) stenosis (2) Chest pain ICD Codes: R07.9 - Chest pain, unspecified Status: Acute (3) Diastolic CHF due to valvular disease ICD Codes: I38 - Endocarditis, valve unspecified; I50.30 - Unspecified diastolic (congestive) heart failure Assessment and Plan 1) Severe by echo (peak 64, mean 40, CHING 0.66) 2) No significant CAD 3) Discussed with Dr. Orellana, agree with him that due to her frailty as well as her annulus size, she would be a better TAVR candidate Will have structural heart team evaluate her on Thursday for further insight 4) Will plan on CTA for TAVR evaluation and to better analyze the size of her aortic annulus 5) Will increase Norvasc for HTN Problem Qualifiers (1) Aortic stenosis: Qualified Codes: I35.0 - Nonrheumatic aortic (valve) stenosis (2) Chest pain: Qualified Codes: R07.9 - Chest pain, unspecified Ryan Atkinson DO Apr 19, 2017 10:34
--- NOTE | 2017-04-19 10:37 | HHI.PR ---
Subjective Remarks This is a pleasant 61 y/o Female with Hypertension, Anxiety disorder, asthma, who came to ER with Atypical chest pain and headache, non pleuritic chest pain, No associated symptoms of nausea, vomiting, diaphoresis, or shortness of breath. No known precipitating or relieving factors. Reported fall one month before coming to ER, Denies syncopal episodes.she has also Hepatitis C, COPD, status post Coronary angiogram, right Heart Catheterization, 04/17/17, with diagnosis of Severe Aortic Stenosis by echocardiogram, Mild coronary artery disease, mild pulmonary hypertension, discussed with clinical documentation specialist doctor Ryan Ramirez he wants the patient to rule out Brain pathology for headache, will perform CT brain no contrast. Seen by Cardiothoracic transitional living specialist doctor Mansi Orellana, status post Coronary CTA showing Coronary calcifications as well as Heavy calcifications of the aortic valve and annulus calculated area on Ultrasound 0.66 cm2, left ventricular Hypertension EF 75%, status post fall with head injury continue with frontal headaches since the fall. she will be evaluated next 04/20/[address] Stubbs for probable Transcatheter Aortic valve replacement. 10 IS NOW REPORTING LACTOSE INTOLERANT- WILL ADJUST HER DIET AWAIT EVAL FOR POSSIBLE TAVR IN FUTURE PIPE [facility]OMPSON RN AND PT AND FAMILY We'll get a.m. labs Objective Vitals Vital Signs Date Time Temp Pulse Resp B/P (MAP) Pulse Ox O2 Delivery O2 Flow Rate FiO2 04/19/17 08:00 62 04/19/17 07:15 75 04/19/17 07:15 97.9 67 18 161/76 (104) 94 04/19/17 06:00 64 04/19/17 05:00 64 04/19/17 04:00 62 04/19/17 03:00 66 04/19/17 03:00 98.2 68 20 160/67 (98) 94 04/19/17 02:00 68 04/19/17 01:00 64 04/19/17 00:00 68 04/18/17 23:00 69 04/18/17 23:00 99.0 72 22 155/58 (90) 95 Manual Cuff/Auscultation 04/18/17 22:00 70 04/18/17 21:16 21 04/18/17 21:00 70 04/18/17 20:00 74 04/18/17 20:00 98.9 69 22 122/58 (79) 95 04/18/17 19:00 66 04/18/17 18:00 65 04/18/17 17:00 69 04/18/17 16:00 60 04/18/17 15:00 57 04/18/17 15:00 98.4 63 14 142/74 (96) 97 04/18/17 14:00 60 04/18/17 13:00 60 04/18/17 12:00 68 04/18/17 11:00 97.4 77 16 152/67 (95) 04/18/17 11:00 65 I/O 04/18/17 04/18/17 04/18/17 04/19/17 04/19/17 04/19/17 07:00 15:00 23:00 07:00 15:00 23:00 Intake Total 240 ml 550 ml 240 ml Output Total 425 ml 1500 ml Balance -185 ml 550 ml -1260 ml Intake Oral 240 ml 550 ml 240 ml Output Urine Total 425 ml 1500 ml # Voids 1 6 Result Diagram: 04/18/17 0352 04/18/17 0558 Other Results Laboratory Tests Test 04/16/17 13:00 04/16/17 16:30 04/18/17 03:52 04/18/17 05:58 Troponin I LESS THAN 0.02 NG/ML LESS THAN 0.02 NG/ML Red Blood Count 3.70 MIL/MM3 (4.00-5.30) Hemoglobin 11.4 GM/DL (11.6-15.3) Hematocrit 32.5 % (35.0-46.0) Platelet Count 88 TH/MM3 (150-450) Monocytes (%) (Auto) 11.2 % (0.0-8.0) Platelet Estimate LOW (NORMAL) Blood Urea Nitrogen 20 MG/DL (7-18) Albumin 2.7 GM/DL (3.4-5.0) Imaging Last Impressions Chest CTA 04/18/17 0000 Signed Impressions: Service Date/Time: Tuesday, April 18, 2017 13:19 - CONCLUSION: 1. Vascular measurements as above. Aberrant right subclavian artery is present 2. Findings of cirrhosis with portal hypertension 3. Cholelithiasis Lenny Swanson MD Coronary Angiography CT 04/17/17 0000 Signed Impressions: Service Date/Time: Monday, April 17, 2017 11:02 - CONCLUSION: 1. Multiple areas of stenosis involving the possible third of the left anterior descending artery. Catheter angiography is recommended for further evaluation if clinically indicated. Lenny Swanson MD Chest X-Ray 04/16/17 0951 Signed Impressions: Service Date/Time: April 10:04 - CONCLUSION: No acute disease. Mayank Banerjee MD Head CT 04/16/17 0000 Signed Impressions: Service Date/Time: April 11:43 - CONCLUSION: Normal examination. Jg Corcoran MD Objective Remarks GENERAL: Awake alert and oriented talkative and cooperative only speaks Russian discussed with patient and automotive design drafter and family SKIN: Warm and dry. HEAD: Atraumatic. Normocephalic. EYES: Pupils equal and round. No scleral icterus. No injection or drainage. Extraocular muscles intact ENT: No nasal bleeding or discharge. Mucous membranes pink and moist. Tongue is midline NECK: Trachea midline. No JVD. Supple CARDIOVASCULAR: Regular rate and rhythm. S1-S2 no S3 or S4 breath sounds bilaterally. 3 out of 6 ejection fraction RESPIRATORY: No accessory muscle use. Clear to auscultation. Breath sounds equal bilaterally. GASTROINTESTINAL: Abdomen soft, non-tender, nondistended. Hepatic and splenic margins not palpable. Obese MUSCULOSKELETAL: Extremities without clubbing, cyanosis, or edema. No obvious deformities. NEUROLOGICAL: Awake and alert. No obvious cranial nerve deficits. Motor grossly within normal limits. Five out of 5 muscle strength in the arms and legs. Normal speech. PSYCHIATRIC: Appropriate mood and affect; insight and judgment normal. Procedures RYAN RAMIREZ DO DATE: April 17, 2017 PROCEDURE Coronary angiogram, right heart catheterization. PREPROCEDURE DIAGNOSIS Severe aortic stenosis by echocardiogram, CT of coronary showing possible significant lesion, chest pain. POSTPROCEDURE DIAGNOSIS Severe aortic stenosis by echocardiogram, mild coronary artery disease, mild pulmonary hypertension (type 2 secondary to elevated left-sided filling pressures). MEDICATIONS 1. Fentanyl 50 mcg. 2. Hydralazine 10 mg. CONTRAST 70 cc. FLUOROSCOPY TIME: Fluoroscopy 4.1 minutes SEDATION: Moderate sedation zero minutes. ESTIMATED BLOOD LOSS 10 cc PROCEDURAL SUMMARY Megan العلي is a pleasant 61-year-old Russian-speaking female who presented to [facility] due to chest pain. She underwent a CTA of her coronaries which showed possible disease as well as an echocardiogram which showed severe aortic stenosis. Because of her severe aortic stenosis and possible coronary artery disease. She was recommended right and left heart catheterization for further workup. The Risks, benefits and alternatives were explained to her through a automotive design drafter and she consented. She was brought to lab and prepped in the usual sterile fashion. Right femoral artery was accessed using a modified Seldinger technique and placement of a 5-Emirati sheath. Her right femoral vein was accessed using modified Seldinger technique and placement of a 7-Emirati sheath. Both sheaths were easily aspirated and flushed. A Billings-Delmer catheter was advanced up the femoral vein to wedge position and oxygen saturations as well as pressures were measured in a standard fashion upon pullback. The Billings-Delmer catheter was removed. The JR-4 was advanced over a J-wire to the ascending aorta and as she has known aortic stenosis. It was not felt prudent to cross her aortic valve at this time. A JR-4 was used for selective angiography of the right coronary artery. This was exchanged out for a JL-4 which was used for selective angiography of left coronary artery. JL-4 was removed over a J-wire. Sheaths were removed and pressure was held for hemostasis. The patient left the cath lab tech cardiovascularly stable. FINDINGS Left main normal size vessel with mild luminal irregularities. It bifurcates into an LAD and circumflex. LAD normal-size vessel with mild disease in the proximal portion of 20% and diffuse mild luminal irregularities throughout the [id number] portion. It gives off a two diagonals with the first diagonal being larger and no significant disease in the second diagonal slightly smaller with mild luminal irregularities. Left circumflex normal size vessel with no significant disease. It gives off two obtuse marginals with no significant disease. RCA normal-size vessel with 20% disease in the midportion. It is a dominant vessel by nature and has a small PDA with 30% disease in the ostial portion. HEMODYNAMIC RESULTS Right atrium RA18. RV 48 / 10, RVEDP 21. PA 49/23, mean PA 35. Wedge 27. IMPRESSION 1. Severe aortic stenosis by echocardiogram. 2. Mild coronary artery disease by cardiac catheterization. 3. Mild pulmonary hypertension (type 2 secondary to elevated left-sided filling pressures). RECOMMENDATIONS 1. Miss العلي presented with chest pain and this may be due to her severe aortic stenosis. 2. She has mild coronary artery disease by cardiac catheterization with no significant lesions noted. 3. She continues to have mild pulmonary hypertension (type 2) due to elevated left ventricular pressures and she may need to be diuresed gently. 4. She will be evaluated by CT surgery for possible AVR. Thank you for allowing me to see Megan العلي if there are any questions please do not hesitate to call. Medications and IVs Current Medications Sodium Chloride (NS Flush) 2 ml UNSCH PRN IVF FLUSH AFTER USING IV ACCESS; Start 04/16/17 at 10:00 Methylprednisolone Sodium Succinate (SoluMEDROL INJ) 125 mg ONCE ONCE IV PUSH Last administered on 04/16/17 11:02; Start 04/16/17 at 11:00; Stop 04/16/17 at 11:01; Status DC Albuterol/ Ipratropium (Duoneb Neb) 1 ampule Q15M INH Last administered on 10:57; Start 04/16/17 at 11:00; Stop 04/16/17 at 11:31; Status DC Acetaminophen (Tylenol) 650 mg ONCE ONCE PO Last administered on 04/16/17 11 :02; Start 04/16/17 at 11:00; Stop 04/16/17 at 11:01; Status DC Sodium Chloride (NS Flush) 2 ml BID IV FLUSH Last administered on 04/19/17 08 :33; Start 04/16/17 at 21:00 Acetaminophen (Tylenol) 500 mg Q4H PRN PO HEADACHE Last administered on 21:57; Start 04/16/17 at 13:00 Ondansetron HCl (Zofran Inj) 4 mg Q6H PRN IV PUSH NAUSEA; Start 04/16/17 at 13 :00 Nitroglycerin (Nitrostat Sl) 0.4 mg Q5M PRN SL CHEST PAIN; Start 04/16/17 at 13:00 Aspirin (Aspirin) 325 mg DAILY PO Last administered on 04/17/17 10:07; Start 04/17/17 at 09:00; Stop 04/17/17 at 17:55; Status DC Albuterol Sulfate (Albuterol Neb) 2.5 mg Q2HR NEB PRN NEB SOB/WHEEZING; Start 04/16/17 at 15:30 Ketorolac Tromethamine (Toradol Inj) 30 mg ONCE ONCE IV PUSH Last administered on 04/16/17 17:49; Start 04/16/17 at 17:15; Stop 04/16/17 at 17 :25; Status DC Amlodipine Besylate (Norvasc) 2.5 mg DAILY PO Last administered on 04/19/17 08:29; Start 04/17/17 at 09:00 Atenolol (Tenormin) 50 mg DAILY PO Last administered on 04/19/17 08:29; Start 04/17/17 at 09:00 Gabapentin (Neurontin) 300 mg BID PO Last administered on 04/19/17 08:29; Start 04/16/17 at 21:00 Losartan Potassium (Cozaar) 50 mg DAILY PO Last administered on 04/19/17 08: 29; Start 04/17/17 at 09:00 Pantoprazole Sodium (Protonix) 40 mg DAILY PO Last administered on 04/19/17 08:29; Start 04/17/17 at 09:00 Ergocalciferol (Drisdol) 50,000 units Fr@0900 PO Last administered on 10:06; Start 04/17/17 at 09:00 Budesonide/ Formoterol Fumarate (Symbicort 160-4.5 Inh) 2 puff BID INH Last administered on 04/19/17 08:30; Start 04/16/17 at 21:00 Nitroglycerin (Nitrostat Sl (Adm Override)) 0.4 mg STK-MED ONCE SL Last administered on 04/17/17 11:05; Start 04/17/17 at 10:59; Stop 04/17/17 at 11 :00; Status DC Iohexol (Omnipaque 350 Inj) 70 ml STK-MED ONCE IVCONTRAST ; Start 04/17/17 at 11:33; Stop 04/17/17 at 11:34; Status DC Heparin Sodium/ Sodium Chloride 1,000 ml @ As Directed STK-MED ONCE .ROUTE ; Start 04/17/17 at 16:42; Stop 04/17/17 at 16:43; Status DC Midazolam HCl (Versed Inj) 2 mg STK-MED ONCE .ROUTE ; Start 04/17/17 at 16:42; Stop 04/17/17 at 16:43; Status DC Fentanyl Citrate (fentaNYL INJ) 100 mcg STK-MED ONCE .ROUTE Last administered on 04/17/17 17:12; Start 04/17/17 at 16:42; Stop 04/17/17 at 16:43; Status DC Hydralazine HCl (Apresoline Inj) 20 mg STK-MED ONCE .ROUTE Last administered on 04/17/17 17:39; Start 04/17/17 at 17:36; Stop 04/17/17 at 17:37; Status DC Miscellaneous Information 1 ONCE ONCE XX ; Start 04/17/17 at 18:00; Stop at 18:13; Status DC Aspirin (Aspirin Chew) 81 mg DAILY CHEW Last administered on 04/18/17 09:28; Start 04/18/17 at 09:00 Fentanyl Citrate (fentaNYL INJ) 50 mcg ONCE ONCE IV ; Start 04/17/17 at 17:12 ; Stop 04/17/17 at 23:03; Status DC Hydralazine HCl (Apresoline Inj) 10 mg ONCE ONCE IV ; Start 04/17/17 at 17:39 ; Stop 04/17/17 at 23:03; Status DC Iohexol (Omnipaque 350 Inj) 100 ml STK-MED ONCE IVCONTRAST ; Start 04/18/17 at 13:32; Stop 04/18/17 at 13:33; Status DC Diazepam (Valium) 5 mg Q12HR PO Last administered on 04/19/17 08:29; Start 04/18/17 at 15:15; Stop 04/20/17 at 06:00 Lidocaine HCl (Lidoderm 5% Patch.12 Hr) 1 patch ONCE ONCE T-DERMAL Last administered on 04/18/17 15:47; Start 04/18/17 at 15:15; Stop 04/18/17 at 15 :17; Status DC Urinary Catheter: No Vascular Central Line Catheter: No A/P Assessment and Plan 1. Atypical chest pain status post Cardiac Cath found Severe Aortic Stenosis, status post Cardiac Catheterization discussed with Doctor Ryan Ramirez and with Doctor Mansi Orellana, patient status Coronary CTA showing Coronary calcifications as well as Heavy calcifications of the aortic valve and annulus calculated area on Ultrasound 0.66 cm2, left ventricular Hypertension EF 75%, she will be evaluated next 04/20/17 [address] Stubbs for probable Transcatheter Aortic valve replacement. TAVR 2. Aortic Stenosis See #1 3. Asthma stable 4. Hypertension controlled. 5. GERD on Protonix 6. Headache Head CT Negative. Exquisite palpation on her Muscles on Occipital area. will give her scheduled low dose of Diazepam and NSAID for one day and follow. 7. Obesity strongly recommended diet and exercise. as outpatient. Lactose intolerance adjust diet DVT prophylaxis with SCDs Discussed in the room with patient and her . Discharge Planning Await TAVR evaluation Tan Burks DO Apr 19, 2017 10:37
[2017-04-19] MEDS ORDERED: amLODIPine BESYLATE 5 MG TAB PO ONE (11:00)
[2017-04-19] MEDS ORDERED: PILL SPLITTER OTHER PRN (11:00)
[2017-04-20] VITALS (20 sets, daily range): BP systolic 136–177; BP diastolic 66–76; PULSE 65–89; RESP 14–22; TEMP 97.9–98.7; O2SAT 93–98
[2017-04-20 06:29] LABS: AUTOMATED NEUTROPHIL # 2.3 TH/MM3 (1.8-7.7); BASOPHIL % 0.4 % (0.0-2.0); EOSINOPHIL # 0.3 TH/MM3 (0-0.4); HEMATOCRIT 34.1 % (35.0-46.0); LYMPH % 27.3 % (9.0-44.0); LYMPHOCYTE # 1.2 TH/MM3 (1.0-4.8); MEAN CELL VOLUME 87.2 FL (80.0-100.0); MEAN CORPUSCULAR HEMOGLOBIN 30.5 PG (27.0-34.0); MEAN CORPUSCULAR HGB CONC 34.9 % (32.0-36.0); MONO % 12.3 % (0.0-8.0); PLATELET COUNT 89 TH/MM3 (150-450); RED CELL DISTRIBUTION WIDTH 14.1 % (11.6-17.2); WHITE BLOOD COUNT 4.3 TH/MM3 (4.0-11.0)
[2017-04-20 06:30] LABS: HEMO FLAGS AUTO DIFF
[2017-04-20 06:40] LABS: ANION GAP 7 MEQ/L (5-15); AST (GOT) 38 U/L (15-37); BLOOD UREA NITROGEN 11 MG/DL (7-18); CHLORIDE 105 MEQ/L (98-107); GLOMERULAR FILTRATION RATE 139 ML/MIN (>89); MAGNESIUM 1.7 MG/DL (1.5-2.5); POTASSIUM 3.7 MEQ/L (3.5-5.1); SODIUM (NA) 140 MEQ/L (136-145)
[2017-04-20 06:49] LABS: ALKALINE PHOSPHATASE 96 U/L (45-117); ALT (GPT) 30 U/L (10-53); FREE T4 1.15 NG/DL (0.76-1.46); TOTAL BILIRUBIN ADULT 0.9 MG/DL (0.2-1.0)
[2017-04-20 08:08] LABS: PLATELET ESTIMATE SMEAR LOW (NORMAL); PLATELET MORPHOLOGY NORMAL (NORMAL); SCAN/DIFF AUTO DIFF CONFIRMED
[2017-04-20] MEDS ORDERED: amLODIPine BESYLATE 5 MG TAB PO SCH (09:00)
[2017-04-20] MEDS: ASPIRIN 81 MG CHEW TAB CHEW SCH (09:44)
[2017-04-20] MEDS: PANTOPRAZOLE SOD 40 MG DELAYED RELEASE TAB PO SCH (09:44)
[2017-04-20] MEDS: ATENOLOL 50 MG TAB PO SCH (09:45)
[2017-04-20] MEDS: GABAPENTIN 300 MG CAP PO SCH (09:45)
[2017-04-20] MEDS: BUDESONIDE-FORMOTEROL 160/4.5 MCG INHALER INH SCH (09:45)
[2017-04-20] MEDS: SODIUM CHLORIDE 0.9% FLUSH 10 ML FLUSH IV FLUSH SCH (09:45)
[2017-04-20] MEDS: LOSARTAN 50 MG TAB PO SCH (09:45)
[2017-04-20] MEDS ORDERED: IOHEXOL 350 MG/ML 100 ML BTL (for Cath Lab) OTHER ONE (10:14)
--- NOTE | 2017-04-20 10:14 | HHI.PR ---
Subjective Remarks This is a pleasant 61 y/o Female with Hypertension, Anxiety disorder, asthma, who came to ER with Atypical chest pain and headache, non pleuritic chest pain, No associated symptoms of nausea, vomiting, diaphoresis, or shortness of breath. No known precipitating or relieving factors. Reported fall one month before coming to ER, Denies syncopal episodes.she has also Hepatitis C, COPD, status post Coronary angiogram, right Heart Catheterization, 04/17/17, with diagnosis of Severe Aortic Stenosis by echocardiogram, Mild coronary artery disease, mild pulmonary hypertension, discussed with global marketing specialist doctor Ryan Ramirez he wants the patient to rule out Brain pathology for headache, will perform CT brain no contrast. Seen by Cardiothoracic child development specialist doctor Mansi Orellana, status post Coronary CTA showing Coronary calcifications as well as Heavy calcifications of the aortic valve and annulus calculated area on Ultrasound 0.66 cm2, left ventricular Hypertension EF 75%, status post fall with head injury continue with frontal headaches since the fall. she will be evaluated next 04/20/17 [address] Doctor Lopez for probable Transcatheter Aortic valve replacement. 04-19 IS NOW REPORTING LACTOSE INTOLERANT- WILL ADJUST HER DIET AWAIT EVAL FOR POSSIBLE TAVR IN FUTURE PIPE THOMPSON RN AND PT AND FAMILY We'll get a.m. labs 04-[address] LOPEZ LATER TODAY NO NEW COMPLAINTS JAY RN AND PT AND FAMILY Objective Vitals Vital Signs Date Time Temp Pulse Resp B/P (MAP) Pulse Ox O2 Delivery O2 Flow Rate FiO2 04/20/17 09:00 80 04/20/17 08:00 70 04/20/17 07:00 98.4 75 14 177/73 (107) 98 04/20/17 07:00 80 04/20/17 06:00 74 04/20/17 05:00 70 04/20/17 04:00 72 04/20/17 03:00 98.7 76 22 143/67 (92) 93 04/20/17 03:00 73 04/20/17 02:00 82 04/20/17 01:00 80 04/20/17 00:00 78 04/19/17 23:00 98.9 80 24 149/71 (97) 94 04/19/17 23:00 79 04/19/17 22:00 82 04/19/17 21:00 90 04/19/17 20:00 70 04/19/17 19:00 74 04/19/17 19:00 98.7 72 24 140/63 (88) 92 04/19/17 18:13 65 04/19/17 17:02 73 04/19/17 16:11 69 04/19/17 15:00 98.1 71 17 146/65 (92) 96 04/19/17 15:00 65 04/19/17 14:19 61 04/19/17 13:00 68 04/19/17 12:46 21 04/19/17 12:00 62 04/19/17 12:00 97.9 61 18 142/60 (87) 95 04/19/17 11:00 64 I/O 04/19/17 04/19/17 04/19/17 04/20/17 04/20/17 04/20/17 07:00 15:00 23:00 07:00 15:00 23:00 Intake Total 240 ml 520 ml 240 ml Output Total 1500 ml 1500 ml 400 ml Balance -1260 ml -980 ml -160 ml Intake Oral 240 ml 520 ml 240 ml Output Urine Total 1500 ml 1500 ml 400 ml # Bowel Movements 2 Result Diagram: 04/20/17 0537 04/20/17 0537 Other Results Laboratory Tests Test 04/18/17 03:52 04/18/17 05:58 04/20/17 05:37 White Blood Count 6.6 TH/MM3 4.3 TH/MM3 Red Blood Count 3.70 MIL/MM3 3.90 MIL/MM3 Hemoglobin 11.4 GM/DL 11.9 GM/DL Hematocrit 32.5 % 34.1 % Mean Corpuscular Volume 87.9 FL 87.2 FL Mean Corpuscular Hemoglobin 30.7 PG 30.5 PG Mean Corpuscular Hemoglobin Concent 35.0 % 34.9 % Red Cell Distribution Width 14.6 % 14.1 % Platelet Count 88 TH/MM3 89 TH/MM3 Mean Platelet Volume 8.6 FL 8.1 FL Neutrophils (%) (Auto) 63.3 % 53.0 % Lymphocytes (%) (Auto) 23.2 % 27.3 % Monocytes (%) (Auto) 11.2 % 12.3 % Eosinophils (%) (Auto) 2.0 % 7.0 % Basophils (%) (Auto) 0.3 % 0.4 % Neutrophils # (Auto) 4.2 TH/MM3 2.3 TH/MM3 Lymphocytes # (Auto) 1.5 TH/MM3 1.2 TH/MM3 Monocytes # (Auto) 0.7 TH/MM3 0.5 TH/MM3 Eosinophils # (Auto) 0.1 TH/MM3 0.3 TH/MM3 Basophils # (Auto) 0.0 TH/MM3 0.0 TH/MM3 CBC Comment AUTO DIFF AUTO DIFF Differential Comment AUTO DIFF CONFIRMED AUTO DIFF CONFIRMED Platelet Estimate LOW LOW Platelet Morphology Comment NORMAL NORMAL Blood Urea Nitrogen 20 MG/DL 11 MG/DL Creatinine 0.50 MG/DL 0.46 MG/DL Random Glucose 86 MG/DL 91 MG/DL Calcium Level 8.7 MG/DL 8.4 MG/DL Sodium Level 141 MEQ/L 140 MEQ/L Potassium Level 4.0 MEQ/L 3.7 MEQ/L Chloride Level 107 MEQ/L 105 MEQ/L Carbon Dioxide Level 26.7 MEQ/L 28.0 MEQ/L Anion Gap 7 MEQ/L 7 MEQ/L Estimat Glomerular Filtration Rate 126 ML/MIN 139 ML/MIN Albumin 2.7 GM/DL 2.8 GM/DL Total Protein 6.8 GM/DL Phosphorus Level 3.7 MG/DL Magnesium Level 1.7 MG/DL Alkaline Phosphatase 96 U/L Aspartate Amino Transf (AST/SGOT) 38 U/L Alanine Aminotransferase (ALT/SGPT) 30 U/L Total Bilirubin 0.9 MG/DL Free Thyroxine 1.15 NG/DL Thyroid Stimulating Hormone 3rd Gen 2.650 uIU/ML Imaging Last Impressions Chest CTA 04/18/17 0000 Signed Impressions: Service Date/Time: Tuesday, April 18, 2017 13:19 - CONCLUSION: 1. Vascular measurements as above. Aberrant right subclavian artery is present 2. Findings of cirrhosis with portal hypertension 3. Cholelithiasis Lenny Swanson MD Coronary Angiography CT 04/17/17 0000 Signed Impressions: Service Date/Time: Monday, April 17, 2017 11:02 - CONCLUSION: 1. Multiple areas of stenosis involving the possible third of the left anterior descending artery. Catheter angiography is recommended for further evaluation if clinically indicated. Lenny Swanson MD Chest X-Ray 04/16/17 0951 Signed Impressions: Service Date/Time: April 10:04 - CONCLUSION: No acute disease. Mayank Banerjee MD Head CT 04/16/17 0000 Signed Impressions: Service Date/Time: April 11:43 - CONCLUSION: Normal examination. Jg Corcoran MD Objective Remarks GENERAL: Awake alert and oriented talkative and cooperative only speaks Dominican discussed with patient and form setter/driver and family SKIN: Warm and dry. HEAD: Atraumatic. Normocephalic. EYES: Pupils equal and round. No scleral icterus. No injection or drainage. Extraocular muscles intact ENT: No nasal bleeding or discharge. Mucous membranes pink and moist. Tongue is midline NECK: Trachea midline. No JVD. Supple CARDIOVASCULAR: Regular rate and rhythm. S1-S2 no S3 or S4 breath sounds bilaterally. 3 out of 6 ejection fraction RESPIRATORY: No accessory muscle use. Clear to auscultation. Breath sounds equal bilaterally. GASTROINTESTINAL: Abdomen soft, non-tender, nondistended. Hepatic and splenic margins not palpable. Obese MUSCULOSKELETAL: Extremities without clubbing, cyanosis, or edema. No obvious deformities. NEUROLOGICAL: Awake and alert. No obvious cranial nerve deficits. Motor grossly within normal limits. Five out of 5 muscle strength in the arms and legs. Normal speech. PSYCHIATRIC: Appropriate mood and affect; insight and judgment normal. Procedures RYAN RAMIREZ DO DATE: April 17, 2017 PROCEDURE Coronary angiogram, right heart catheterization. PREPROCEDURE DIAGNOSIS Severe aortic stenosis by echocardiogram, CT of coronary showing possible significant lesion, chest pain. POSTPROCEDURE DIAGNOSIS Severe aortic stenosis by echocardiogram, mild coronary artery disease, mild pulmonary hypertension (type 2 secondary to elevated left-sided filling pressures). MEDICATIONS 1. Fentanyl 50 mcg. 2. Hydralazine 10 mg. CONTRAST 70 cc. FLUOROSCOPY TIME: Fluoroscopy 4.1 minutes SEDATION: Moderate sedation zero minutes. ESTIMATED BLOOD LOSS 10 cc PROCEDURAL SUMMARY Megan العلي is a pleasant 61-year-old Dominican-speaking female who presented to [facility] due to chest pain. She underwent a CTA of her coronaries which showed possible disease as well as an echocardiogram which showed severe aortic stenosis. Because of her severe aortic stenosis and possible coronary artery disease. She was recommended right and left heart catheterization for further workup. The Risks, benefits and alternatives were explained to her through a form setter/driver and she consented. She was brought to lab and prepped in the usual sterile fashion. Right femoral artery was accessed using a modified Seldinger technique and placement of a 5-Lithuanian sheath. Her right femoral vein was accessed using modified Seldinger technique and placement of a 7-Lithuanian sheath. Both sheaths were easily aspirated and flushed. A Novi-Delmer catheter was advanced up the femoral vein to wedge position and oxygen saturations as well as pressures were measured in a standard fashion upon pullback. The Novi-Delmer catheter was removed. The JR-4 was advanced over a J-wire to the ascending aorta and as she has known aortic stenosis. It was not felt prudent to cross her aortic valve at this time. A JR-4 was used for selective angiography of the right coronary artery. This was exchanged out for a JL-4 which was used for selective angiography of left coronary artery. JL-4 was removed over a J-wire. Sheaths were removed and pressure was held for hemostasis. The patient left the optical lab technician cardiovascularly stable. FINDINGS Left main normal size vessel with mild luminal irregularities. It bifurcates into an LAD and circumflex. LAD normal-size vessel with mild disease in the proximal portion of 20% and diffuse mild luminal irregularities throughout the [id number] portion. It gives off a two diagonals with the first diagonal being larger and no significant disease in the second diagonal slightly smaller with mild luminal irregularities. Left circumflex normal size vessel with no significant disease. It gives off two obtuse marginals with no significant disease. RCA normal-size vessel with 20% disease in the midportion. It is a dominant vessel by nature and has a small PDA with 30% disease in the ostial portion. HEMODYNAMIC RESULTS Right atrium RA18. RV 48 / 10, RVEDP 21. PA 49/23, mean PA 35. Wedge 27. IMPRESSION 1. Severe aortic stenosis by echocardiogram. 2. Mild coronary artery disease by cardiac catheterization. 3. Mild pulmonary hypertension (type 2 secondary to elevated left-sided filling pressures). RECOMMENDATIONS 1. Miss العلي presented with chest pain and this may be due to her severe aortic stenosis. 2. She has mild coronary artery disease by cardiac catheterization with no significant lesions noted. 3. She continues to have mild pulmonary hypertension (type 2) due to elevated left ventricular pressures and she may need to be diuresed gently. 4. She will be evaluated by CT surgery for possible AVR. Thank you for allowing me to see Megan العلي if there are any questions please do not hesitate to call. Medications and IVs Current Medications Sodium Chloride (NS Flush) 2 ml UNSCH PRN IVF FLUSH AFTER USING IV ACCESS; Start 04/16/17 at 10:00 Methylprednisolone Sodium Succinate (SoluMEDROL INJ) 125 mg ONCE ONCE IV PUSH Last administered on 04/16/17 11:02; Start 04/16/17 at 11:00; Stop 04/16/17 at 11:01; Status DC Albuterol/ Ipratropium (Duoneb Neb) 1 ampule Q15M INH Last administered on 10:57; Start 04/16/17 at 11:00; Stop 04/16/17 at 11:31; Status DC Acetaminophen (Tylenol) 650 mg ONCE ONCE PO Last administered on 04/16/17 11 :02; Start 04/16/17 at 11:00; Stop 04/16/17 at 11:01; Status DC Sodium Chloride (NS Flush) 2 ml BID IV FLUSH Last administered on 04/20/17 09 :45; Start 04/16/17 at 21:00 Acetaminophen (Tylenol) 500 mg Q4H PRN PO HEADACHE Last administered on 21:57; Start 04/16/17 at 13:00 Ondansetron HCl (Zofran Inj) 4 mg Q6H PRN IV PUSH NAUSEA; Start 04/16/17 at 13 :00 Nitroglycerin (Nitrostat Sl) 0.4 mg Q5M PRN SL CHEST PAIN; Start 04/16/17 at 13:00 Aspirin (Aspirin) 325 mg DAILY PO Last administered on 04/17/17 10:07; Start 04/17/17 at 09:00; Stop 04/17/17 at 17:55; Status DC Albuterol Sulfate (Albuterol Neb) 2.5 mg Q2HR NEB PRN NEB SOB/WHEEZING; Start 04/16/17 at 15:30 Ketorolac Tromethamine (Toradol Inj) 30 mg ONCE ONCE IV PUSH Last administered on 04/16/17 17:49; Start 04/16/17 at 17:15; Stop 04/16/17 at 17 :25; Status DC Amlodipine Besylate (Norvasc) 2.5 mg DAILY PO Last administered on 04/19/17 08:29; Start 04/17/17 at 09:00; Stop 04/19/17 at 10:36; Status DC Atenolol (Tenormin) 50 mg DAILY PO Last administered on 04/20/17 09:45; Start 04/17/17 at 09:00 Gabapentin (Neurontin) 300 mg BID PO Last administered on 04/20/17 09:45; Start 04/16/17 at 21:00 Losartan Potassium (Cozaar) 50 mg DAILY PO Last administered on 04/20/17 09: 45; Start 04/17/17 at 09:00 Pantoprazole Sodium (Protonix) 40 mg DAILY PO Last administered on 04/20/17 09:44; Start 04/17/17 at 09:00 Ergocalciferol (Drisdol) 50,000 units Fr@0900 PO Last administered on 10:06; Start 04/17/17 at 09:00 Budesonide/ Formoterol Fumarate (Symbicort 160-4.5 Inh) 2 puff BID INH Last administered on 04/20/17 09:45; Start 04/16/17 at 21:00 Nitroglycerin (Nitrostat Sl (Adm Override)) 0.4 mg STK-MED ONCE SL Last administered on 04/17/17 11:05; Start 04/17/17 at 10:59; Stop 04/17/17 at 11 :00; Status DC Iohexol (Omnipaque 350 Inj) 70 ml STK-MED ONCE IVCONTRAST ; Start 04/17/17 at 11:33; Stop 04/17/17 at 11:34; Status DC Heparin Sodium/ Sodium Chloride 1,000 ml @ As Directed STK-MED ONCE .ROUTE ; Start 04/17/17 at 16:42; Stop 04/17/17 at 16:43; Status DC Midazolam HCl (Versed Inj) 2 mg STK-MED ONCE .ROUTE ; Start 04/17/17 at 16:42; Stop 04/17/17 at 16:43; Status DC Fentanyl Citrate (fentaNYL INJ) 100 mcg STK-MED ONCE .ROUTE Last administered on 04/17/17 17:12; Start 04/17/17 at 16:42; Stop 04/17/17 at 16:43; Status DC Hydralazine HCl (Apresoline Inj) 20 mg STK-MED ONCE .ROUTE Last administered on 04/17/17 17:39; Start 04/17/17 at 17:36; Stop 04/17/17 at 17:37; Status DC Miscellaneous Information 1 ONCE ONCE XX ; Start 04/17/17 at 18:00; Stop at 18:13; Status DC Aspirin (Aspirin Chew) 81 mg DAILY CHEW Last administered on 04/20/17 09:44; Start 04/18/17 at 09:00 Fentanyl Citrate (fentaNYL INJ) 50 mcg ONCE ONCE IV ; Start 04/17/17 at 17:12 ; Stop 04/17/17 at 23:03; Status DC Hydralazine HCl (Apresoline Inj) 10 mg ONCE ONCE IV ; Start 04/17/17 at 17:39 ; Stop 04/17/17 at 23:03; Status DC Iohexol (Omnipaque 350 Inj) 100 ml STK-MED ONCE IVCONTRAST ; Start 04/18/17 at 13:32; Stop 04/18/17 at 13:33; Status DC Diazepam (Valium) 5 mg Q12HR PO Last administered on 04/19/17 20:13; Start 04/18/17 at 15:15; Stop 04/20/17 at 06:00; Status DC Lidocaine HCl (Lidoderm 5% Patch.12 Hr) 1 patch ONCE ONCE T-DERMAL Last administered on 04/18/17 15:47; Start 04/18/17 at 15:15; Stop 04/18/17 at 15 :17; Status DC Amlodipine Besylate (Norvasc) 5 mg DAILY PO Last administered on 04/20/17 09: 45; Start 04/20/17 at 09:00 Amlodipine Besylate (Norvasc) 2.5 mg ONCE ONCE PO Last administered on 11:19; Start 04/19/17 at 11:00; Stop 04/19/17 at 11:01; Status DC Miscellaneous (Pill Splitter) 1 ea UNSCH PRN OTHER SEE LABEL COMMENTS; Start 04/19/17 at 11:00 Urinary Catheter: No Vascular Central Line Catheter: No A/P Assessment and Plan 1. Atypical chest pain status post Cardiac Cath found Severe Aortic Stenosis, status post Cardiac Catheterization discussed with Doctor Ryan Ramirez and with Doctor Mansi Orellana, patient status Coronary CTA showing Coronary calcifications as well as Heavy calcifications of the aortic valve and annulus calculated area on Ultrasound 0.66 cm2, left ventricular Hypertension EF 75%, she will be evaluated next 04/20/17 [address] Lopez for probable Transcatheter Aortic valve replacement. TAVR 2. Aortic Stenosis See #1 3. Asthma stable 4. Hypertension controlled. 5. GERD on Protonix 6. Headache Head CT Negative. Exquisite palpation on her Muscles on Occipital area. will give her scheduled low dose of Diazepam and NSAID for one day and follow. 7. Obesity strongly recommended diet and exercise. as outpatient. Lactose intolerance adjust diet DVT prophylaxis with SCDs Discussed in the room with patient and her . AWAIT DR LOPEZ EVALUATIONS Discharge Planning Await TAVR evaluation Tan Burks DO Apr 20, 2017 10:14
--- NOTE | 2017-04-20 17:05 | HHI.FF ---
Face to Face Verification Diagnosis: (1) Diastolic CHF due to valvular disease (2) Aortic stenosis (3) Chest pain Physical Therapy Order: Evaluate and Treat, Improve ambulation, Strength and gait training Occupational Therapy Order: Evaluate and Treat, Improve ADL, Gross motor coordination, Fine motor coordination Home Health Nursing Order: Medical education CHF education Nursing assessment with vital signs Telehealth Home Health Aide Order: To Assist In: Bathing and personal care, jig and fixture builder and meal prep I have seen patient Megan العلي on 04/20/17. My clinical findings support the need for the requested home health care services because: Patient has SOB Deconditioned w/ increased weakness I certify that my clinical findings support that this patient is homebound because: Poor cardiac reserve Tan Burks DO Apr 20, 2017 17:05
[2017-04-20] MEDS ORDERED: ALBUAER3 INH (17:10)
[2017-04-20] MEDS ORDERED: VITA200013 PO (17:10)
[2017-04-20] MEDS ORDERED: NEBULIZER1 MI1 (17:10)
[2017-04-20] MEDS ORDERED: ASPI81CH CHEW (17:10)
[2017-04-20] MEDS ORDERED: AMLO5 PO (17:10)
[2017-04-20] MEDS ORDERED: ATEN50TA PO (17:10)
[2017-04-20] MEDS ORDERED: NITR0.4S SL (17:10)
[2017-04-20] MEDS ORDERED: ADVA250A INH (17:10)
[2017-04-20] MEDS ORDERED: PROT40TA PO (17:10)
[2017-04-20] MEDS ORDERED: LOSA50TA PO (17:10)
[2017-04-20] MEDS ORDERED: GABA300C5 PO (17:10)
[2017-04-20] MEDS ORDERED: ALBU0.08 NEB (17:10)
--- NOTE | 2017-04-20 17:23 | HHI.DS ---
Discharge Summary Admission Date Apr 20, 2017 at 08:05 Discharge Date: Apr 20, 2017 Admitting Diagnosis chest pain, rule out ACS (1) Diastolic CHF due to valvular disease ICD Code: I38 - Endocarditis, valve unspecified; I50.30 - Unspecified diastolic (congestive) heart failure (2) Aortic stenosis ICD Code: I35.0 - Nonrheumatic aortic (valve) stenosis (3) Chest pain ICD Code: R07.9 - Chest pain, unspecified Status: Acute (4) Rash ICD Code: R21 - Rash and other nonspecific skin eruption Status: Acute Procedures RYAN ATKINSON DO DATE: April 17, 2017 PROCEDURE Coronary angiogram, right heart catheterization. PREPROCEDURE DIAGNOSIS Severe aortic stenosis by echocardiogram, CT of coronary showing possible significant lesion, chest pain. POSTPROCEDURE DIAGNOSIS Severe aortic stenosis by echocardiogram, mild coronary artery disease, mild pulmonary hypertension (type 2 secondary to elevated left-sided filling pressures). MEDICATIONS 1. Fentanyl 50 mcg. 2. Hydralazine 10 mg. CONTRAST 70 cc. FLUOROSCOPY TIME: Fluoroscopy 4.1 minutes SEDATION: Moderate sedation zero minutes. ESTIMATED BLOOD LOSS 10 cc PROCEDURAL SUMMARY Megan العلي is a pleasant 61-year-old Ukrainian-speaking female who presented to [facility] due to chest pain. She underwent a CTA of her coronaries which showed possible disease as well as an echocardiogram which showed severe aortic stenosis. Because of her severe aortic stenosis and possible coronary artery disease. She was recommended right and left heart catheterization for further workup. The Risks, benefits and alternatives were explained to her through a dub room engineer and she consented. She was brought to lab and prepped in the usual sterile fashion. Right femoral artery was accessed using a modified Seldinger technique and placement of a 5-Icelandic sheath. Her right femoral vein was accessed using modified Seldinger technique and placement of a 7-Icelandic sheath. Both sheaths were easily aspirated and flushed. A Ferdinand-Delmer catheter was advanced up the femoral vein to wedge position and oxygen saturations as well as pressures were measured in a standard fashion upon pullback. The Ferdinand-Delmer catheter was removed. The JR-4 was advanced over a J-wire to the ascending aorta and as she has known aortic stenosis. It was not felt prudent to cross her aortic valve at this time. A JR-4 was used for selective angiography of the right coronary artery. This was exchanged out for a JL-4 which was used for selective angiography of left coronary artery. JL-4 was removed over a J-wire. Sheaths were removed and pressure was held for hemostasis. 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 FINDINGS Left main normal size vessel with mild luminal irregularities. It bifurcates into an LAD and circumflex. LAD normal-size vessel with mild disease in the proximal portion of 20% and diffuse mild luminal irregularities throughout the [id number] portion. It gives off a two diagonals with the first diagonal being larger and no significant disease in the second diagonal slightly smaller with mild luminal irregularities. Left circumflex normal size vessel with no significant disease. It gives off two obtuse marginals with no significant disease. RCA normal-size vessel with 20% disease in the midportion. It is a dominant vessel by nature and has a small PDA with 30% disease in the ostial portion. HEMODYNAMIC RESULTS Right atrium RA18. RV 48 / 10, RVEDP 21. PA 49/23, mean PA 35. Wedge 27. IMPRESSION 1. Severe aortic stenosis by echocardiogram. 2. Mild coronary artery disease by cardiac catheterization. 3. Mild pulmonary hypertension (type 2 secondary to elevated left-sided filling pressures). RECOMMENDATIONS 1. Miss العلي presented with chest pain and this may be due to her severe aortic stenosis. 2. She has mild coronary artery disease by cardiac catheterization with no significant lesions noted. 3. She continues to have mild pulmonary hypertension (type 2) due to elevated left ventricular pressures and she may need to be diuresed gently. 4. She will be evaluated by CT surgery for possible AVR. Thank you for allowing me to see Megan العلي if there are any questions please do not hesitate to call. Brief History - From Admission This is a pleasant 61 y/o Female with Hypertension, Anxiety disorder, asthma, who came to ER with Atypical chest pain and headache, non pleuritic chest pain, No associated symptoms of nausea, vomiting, diaphoresis, or shortness of breath. No known precipitating or relieving factors. Reported fall one month before coming to ER, Denies syncopal episodes.she has also Hepatitis C, COPD, status post Coronary angiogram, right Heart Catheterization, 04/17/17, with diagnosis of Severe Aortic Stenosis by echocardiogram, Mild coronary artery disease, mild pulmonary hypertension, discussed with client technical specialist doctor Ryan Atkinson he wants the patient to rule out Brain pathology for headache, will perform CT brain no contrast. Seen by Cardiothoracic medical administrative specialist doctor Mansi Orellana, status post Coronary CTA showing Coronary calcifications as well as Heavy calcifications of the aortic valve and annulus calculated area on Ultrasound 0.66 cm2, left ventricular Hypertension EF 75%, status post fall with head injury continue with frontal headaches since the fall. she will be evaluated next 04/20/17 by Doctor Lopez for probable Transcatheter Aortic valve replacement. 04-19 IS NOW REPORTING LACTOSE INTOLERANT- WILL ADJUST HER DIET AWAIT EVAL FOR POSSIBLE TAVR IN FUTURE PIPE THOMPSON RN AND PT AND FAMILY We'll get a.m. labs 04-[address] LOPZE LATER TODAY NO NEW COMPLAINTS JAY RN AND PT AND FAMILY CBC/BMP: 04/20/17 0537 04/20/17 0537 Significant Findings Laboratory Tests Test 04/18/17 03:52 04/18/17 05:58 04/20/17 05:37 Red Blood Count 3.70 MIL/MM3 (4.00-5.30) 3.90 MIL/MM3 (4.00-5.30) Hemoglobin 11.4 GM/DL (11.6-15.3) Hematocrit 32.5 % (35.0-46.0) 34.1 % (35.0-46.0) Platelet Count 88 TH/MM3 (150-450) 89 TH/MM3 (150-450) Monocytes (%) (Auto) 11.2 % (0.0-8.0) 12.3 % (0.0-8.0) Platelet Estimate LOW (NORMAL) LOW (NORMAL) Blood Urea Nitrogen 20 MG/DL (7-18) Albumin 2.7 GM/DL (3.4-5.0) 2.8 GM/DL (3.4-5.0) Eosinophils (%) (Auto) 7.0 % (0.0-4.0) Creatinine 0.46 MG/DL (0.50-1.00) Calcium Level 8.4 MG/DL (8.5-10.1) Aspartate Amino Transf (AST/SGOT) 38 U/L (15-37) Imaging Last Impressions Chest CTA 04/18/17 0000 Signed Impressions: Service Date/Time: Tuesday, April 18, 2017 13:19 - CONCLUSION: 1. Vascular measurements as above. Aberrant right subclavian artery is present 2. Findings of cirrhosis with portal hypertension 3. Cholelithiasis Lenny Swanson MD Coronary Angiography CT 04/17/17 0000 Signed Impressions: Service Date/Time: Monday, April 17, 2017 11:02 - CONCLUSION: 1. Multiple areas of stenosis involving the possible third of the left anterior descending artery. Catheter angiography is recommended for further evaluation if clinically indicated. Lenny Swanson MD Chest X-Ray 04/16/17 0951 Signed Impressions: Service Date/Time: April 10:04 - CONCLUSION: No acute disease. Mayank Banerjee MD Head CT 04/16/17 0000 Signed Impressions: Service Date/Time: April 11:43 - CONCLUSION: Normal examination. Jg Corcoran MD PE at Discharge GENERAL: Awake alert and oriented talkative and cooperative only speaks Ukrainian discussed with patient and dub room engineer and family SKIN: Warm and dry. HEAD: Atraumatic. Normocephalic. EYES: Pupils equal and round. No scleral icterus. No injection or drainage. Extraocular muscles intact ENT: No nasal bleeding or discharge. Mucous membranes pink and moist. Tongue is midline NECK: Trachea midline. No JVD. Supple CARDIOVASCULAR: Regular rate and rhythm. S1-S2 no S3 or S4 breath sounds bilaterally. 3 out of 6 ejection fraction RESPIRATORY: No accessory muscle use. Clear to auscultation. Breath sounds equal bilaterally. GASTROINTESTINAL: Abdomen soft, non-tender, nondistended. Hepatic and splenic margins not palpable. Obese MUSCULOSKELETAL: Extremities without clubbing, cyanosis, or edema. No obvious deformities. NEUROLOGICAL: Awake and alert. No obvious cranial nerve deficits. Motor grossly within normal limits. Five out of 5 muscle strength in the arms and legs. Normal speech. PSYCHIATRIC: Appropriate mood and affect; insight and judgment normal. Hospital Course This is a pleasant 61 y/o Female with Hypertension, Anxiety disorder, asthma, who came to ER with Atypical chest pain and headache, non pleuritic chest pain, No associated symptoms of nausea, vomiting, diaphoresis, or shortness of breath. No known precipitating or relieving factors. Reported fall one month before coming to ER, Denies syncopal episodes.she has also Hepatitis C, COPD, status post Coronary angiogram, right Heart Catheterization, 04/17/17, with diagnosis of Severe Aortic Stenosis by echocardiogram, Mild coronary artery disease, mild pulmonary hypertension, discussed with client technical specialist doctor Ryan Atkinson he wants the patient to rule out Brain pathology for headache, will perform CT brain no contrast. Seen by Cardiothoracic medical administrative specialist doctor Mansi Orellana, status post Coronary CTA showing Coronary calcifications as well as Heavy calcifications of the aortic valve and annulus calculated area on Ultrasound 0.66 cm2, left ventricular Hypertension EF 75%, status post fall with head injury continue with frontal headaches since the fall. she will be evaluated next 04/20/17 by Doctor Lopez for probable Transcatheter Aortic valve replacement. 04-19 IS NOW REPORTING LACTOSE INTOLERANT- WILL ADJUST HER DIET AWAIT EVAL FOR POSSIBLE TAVR [facility] FAM[facility] We'll get a.m. labs 04-[address] LOPEZ LATER TODAY NO NEW COMPLAINTS JAY RN AND PT AND FAMILY FOR TAVR ON 04-30 Pt Condition on Discharge: Fair Discharge Disposition: Disch w/ Home Health Serv Discharge Time: > 30 minutes Discharge Instructions DIET: Follow Instructions for: Heart Healthy Diet, Diabetic Diet Speech Therapy-Diet Recommends: Regular Activities you can perform: Regular-No Restrictions, Weight Bearing as Isabella Follow up Referrals: Cardiology - 1 Week with Lazaro Loving MD PCP Follow-up - 1 Week with Tan Agee DO New Medications: Nebulizer (Nebulizer) 1 Mis Mis EA .ROUTE DIRECTED for Breathing Treatment, #1 0 Refills Albuterol Neb (Albuterol Neb) 2.5 Mg/3 Ml Neb 2.5 MG NEB Q2HR NEB PRN for SOB/WHEEZING, #180 NEBULE Amlodipine (Norvasc) 5 Mg Tab 5 MG PO DAILY for Blood Pressure Management, #30 TAB Nitroglycerin SL (Nitrostat SL) 0.4 Mg Subl 0.4 MG SL Q5M PRN for CHEST PAIN, #60 TAB Continued Medications: Albuterol 8.5 GM Inh (Proair Hfa 8.5 GM Inh) 90 Mcg/Act Aer 1 PUFF INH Q4H PRN for SHORTNESS OF BREATH, #1 INHALER 0 Refills (This prescription has been renewed) 108 mcg/actuation Aspirin (Aspirin) 81 Mg Chew 81 MG CHEW DAILY for Blood Clot Prevention, #30 TAB 0 Refills (This prescription has been renewed) Atenolol (Atenolol) 50 Mg Tab 50 MG PO DAILY for Blood Pressure Management, #30 TAB 0 Refills (This prescription has been renewed) Cholecalciferol (Vitamin D) 2,000 Unit Cap 73903 UNITS PO WEEKLY for Nutritional Supplement, #100 CAP (This prescription has been renewed) Fluticasone-Salmeterol Inh (Advair Diskus Inh) 250-50 Mcg/Blist Aer 1 PUFF INH BID for Breathing Treatment, #1 INHALER 0 Refills (This prescription has been renewed) Rinse mouth after use. Gabapentin (Gabapentin) 300 Mg Cap 300 MG PO BID for Pain Management, #60 CAP 0 Refills (This prescription has been renewed) Losartan (Losartan) 50 Mg Tab 50 MG PO DAILY for Blood Pressure Management, #30 TAB 0 Refills (This prescription has been renewed) Pantoprazole (Protonix) 40 Mg Tab 40 MG PO DAILY for Reflux, #30 TAB 0 Refills (This prescription has been renewed ) Discontinued Medications: Amlodipine (Amlodipine) 2.5 Mg Tab 2.5 MG PO DAILY for Blood Pressure Management, #30 TAB 0 Refills Tan Burks DO Apr 20, 2017 17:23
[2017-04-20 21:59] LABS: HEMOGLOBIN A1a 0.6 %; HEMOGLOBIN A1b 0.7 %; HEMOGLOBIN Ao 88.8 %; HEMOGLOBIN F 0.7 %; HEMOGLOBIN LA1C 1.5 %; HEMOGLOBIN P3 3.1 %
--- NOTE | 2017-04-22 11:00 | RSPPFT ---
DATE OF PROCEDURE: 04/20/17 COMMENTS: Spirometry with FVC of 1.4 at 58% of predicted, FEV1 of 1.2 at 59%, FEV1/FVC ratio at 83%. IMPRESSION: 1. Decreased flow rates. 2. No evidence of airways obstruction. 3. Possible airways restriction. 4. If clinically warranted, lung volumes may be helpful.
== END 2017-04-20 21:15 | disposition home health service (06) | DRG 287 ==
LOC: NEPC 09:14 → NEDA 12:12 → NEPHCDU 15:33 → HCIS 04-17 16:37 → HCIN 04-17 20:20 → OBSVTOIN 04-20 08:05
PROVIDERS: ADMIT Hospitalist; ATTEND Hospitalist
PROC: B2111ZZ Fluoroscopy of Multiple Coronary Arteries using Low Osmolar Contrast (ICD-10-PCS; 2017-04-17)
PROC: 4A023N6 Measurement of Cardiac Sampling and Pressure, Right Heart, Percutaneous Approach (ICD-10-PCS; principal; 2017-04-17 15:00)
DX: I35.0 Nonrheumatic aortic (valve) stenosis (principal); I11.0 Hypertensive heart disease with heart failure; I50.32 Chronic diastolic (congestive) heart failure; I27.22 Pulmonary hypertension due to left heart disease; I25.10 Atherosclerotic heart disease of native coronary artery without angina pectoris; J45.909 Unspecified asthma, uncomplicated; M19.90 Unspecified osteoarthritis, unspecified site; F41.9 Anxiety disorder, unspecified; F32.9 Major depressive disorder, single episode, unspecified; K21.9 Gastro-esophageal reflux disease without esophagitis; E66.9 Obesity, unspecified; R51 Headache; E73.9 Lactose intolerance, unspecified; Z91.81 History of falling
CPT/HCPCS: 70450; 71010; 74174; 75574; 80048; 80053; 82040; 82550; 82552; 82810; 83036; 83735; 84100; 84439; 84443; 84484; 85025; 85610; 85730; 93005; 93306; 93456; 94010; 94640; 94664; 96374; 96375; 96376; C1769; C1893; G0378; J0360; J1644; J1885; J2250; J2930; J3010; Q9967

== ENCOUNTER 2017-11-09 10:34 | Emergency (ER) | payer OTHER ==
[~2017-11-09] VITALS: Ht 152.4 cm; Wt 75.0 kg
[~2017-11-09 10:34] MED LIST changes: +ADVA250A INH; +ALBU0.08 NEB; +AMLO5 PO; +ASPI-516 CHEW; -ASPI81CH CHEW; -CLON1TAB PO; -FERR325T PO; -LISI-515 PO; +NEBULIZER1 MI1; +NITR0.4S SL; -PRED50 PO; +VITA200013 PO; -ZOLP5TAB3 PO
[2017-11-09 10:37] VITALS: BP 144/65; PULSE 72; RESP 25; TEMP 98.2; O2SAT 98
--- NOTE | 2017-11-09 10:59 | PD ---
HPI Chief Complaint: Edema Time Seen by Provider: 10:56 Travel History International Travel<30 days: No Contact w/Intl Traveler<30days: No Traveled to known affect area: No History of Present Illness HPI 61-year-old female who is primarily South Korean-speaking, translation done by Jojo ED nurse, presents emergency department from her primary care provider' s office for evaluation of right ankle pain and swelling. Patient had a misstep 1 week ago. She rolled her right ankle. She saw her primary care provider today who advised she come get an x-ray. Patient states it is painful to ambulate on the right lower extremity. She has been ambulatory with cane assistance. Pain is a constant, throbbing, moderate in severity, exacerbated with ambulation or movement. She has no other symptoms to report at this time. PFSH Past Medical History Arthritis: Yes (all over, fingers on both hands bent; CHRONIC ARTHRITIS) Asthma: Yes Blood Disorders: No Anxiety: Yes Depression: Yes Heart Rhythm Problems: Yes Cancer: No Cardiac Catheterization: No Cardiovascular Problems: Yes High Cholesterol: No Chest Pain: Yes Congestive Heart Failure: No Diabetes: No Diminished Hearing: No Endocrine: No Genitourinary: No Hepatitis: Yes (C) Hypertension: Yes Implanted Vascular Access Dvce: No Musculoskeletal: No Neurologic: No Psychiatric: Yes (SUICIDAL ATTEMPTS IN THE PAST) Reproductive: No Respiratory: Yes (ASTHMA) Thyroid Disease: No ?: Not Past Surgical History Section: Yes Coronary Artery Bypass Graft: No Ear Surgery: Yes (LEFT) Gynecologic Surgery: Yes () Other Surgery: No Social History Alcohol Use: No Tobacco Use: No Substance Use: No Allergies-Medications (Allergen,Severity, Reaction): Coded Allergies: No Known Drug Allergies (Verified Allergy, Unknown, 11/09/17) Reported Meds & Prescriptions Reported Meds & Active Scripts Active Nitrostat SL (Nitroglycerin) 0.4 Mg Subl 0.4 Mg SL Q5M PRN Albuterol Neb (Albuterol Sulfate) 2.5 Mg/3 Ml Neb 2.5 Mg NEB Q2HR NEB PRN Advair Diskus Inh (Fluticasone-Salmeterol Inh) 250-50 Mcg/Blist Aer 1 Puff INH BID Rinse mouth after use. Losartan (Losartan Potassium) 50 Mg Tab 50 Mg PO DAILY Proair Hfa 8.5 GM Inh (Albuterol Sulfate) 90 Mcg/Act Aer 1 Puff INH Q4H PRN 108 mcg/actuation Protonix (Pantoprazole Sodium) 40 Mg Tab 40 Mg PO DAILY Atenolol 50 Mg Tab 50 Mg PO DAILY Aspirin 81 Mg Chew 81 Mg CHEW DAILY Reported Ambien (Zolpidem Tartrate) 5 Mg Tab 5 Mg PO HS PRN Potassium Chloride ER (Potassium Chloride) 10 Meq Cap 10 Meq PO DAILY Zocor (Simvastatin) 40 Mg Tab 40 Mg PO DAILY Neurontin (Gabapentin) 600 Mg Tab 600 Mg PO BID Lasix (Furosemide) 20 Mg Tab 20 Mg PO DAILY Norvasc (Amlodipine Besylate) 2.5 Mg Tab 2.5 Mg PO DAILY Vitamin D3 (Cholecalciferol) 50,000 Unit Cap 50,000 Units PO WEEKLY Review of Systems Except as stated in HPI: all other systems reviewed are Neg Physical Exam Narrative GENERAL: Well-nourished, well-developed female patient in no acute distress SKIN: Focused skin assessment warm/dry. HEAD: Normocephalic. EYES: No scleral icterus. No injection or drainage. NECK: Supple, trachea midline. No JVD or lymphadenopathy. CARDIOVASCULAR: Regular rate and rhythm without murmurs, gallops, or rubs. RESPIRATORY: Breath sounds equal bilaterally. No accessory muscle use. GASTROINTESTINAL: Abdomen soft, non-tender, nondistended. EXTREMITY: The right ankle is swollen and tender over the lateral aspect but the skin is intact and there is no ligamentous instability. There is no deformity. The foot and toes are warm and well-perfused. Sensation to pain and light touch is intact. BACK: Nontender without obvious deformity. No CVA tenderness. Data Data Last Documented VS Vital Signs Date Time Temp Pulse Resp B/P (MAP) Pulse Ox O2 Delivery O2 Flow Rate FiO2 11/09/17 10:59 17 Room Air 11/09/17 10:37 98.2 72 144/65 (91) 98 Orders Orders Ankle, Complete ([id number]) (11/09/17 ) Ed Discharge Order (11/09/17 11:29) Splint Or Brace Apply/Monitor (11/09/17 11:31) MDM Medical Decision Making Medical Screen Exam Complete: Yes Emergency Medical Condition: Yes Medical Record Reviewed: Yes Differential Diagnosis Sprain versus fracture versus contusion versus dislocation Narrative Course 61-year-old female presents emergency department for evaluation of right ankle injury sustained 1 week ago. X-ray imaging confirms no acute bony abnormality. There is soft tissue swelling. Patient is placed in a Velcro stirrup splint. Discharge instructions are reviewed in South Korean by Jojo RODRÍGUEZ. Patient is encouraged to follow-up with her primary care provider and return immediately with any acute worsening symptoms. Diagnosis Primary Impression: Ankle sprain Qualified Codes: S93.401A - Sprain of unspecified ligament of right ankle, initial encounter Referrals: Primary Care Physician Patient Instructions: Ankle Sprain (ED), Ankle Sprain Exercises (GEN), General Instructions Additional Instructions: Ice and elevate to reduce pain and swelling Brace for comfort and support Weight bear as tolerated Return to ED with acute worsening of symptoms Med/Other Pt SpecificInfo: No Change to Meds Disposition: 01 DISCHARGE HOME Condition: Stable Ely Echavarria November 09, 2017 10:59
[2017-11-09] MEDS ORDERED: NEUR600T PO (11:17)
[2017-11-09] MEDS ORDERED: NORV2.5T PO (11:17)
[2017-11-09] MEDS ORDERED: POTA10CA PO (11:17)
[2017-11-09] MEDS ORDERED: FURO1TAB62 PO (11:17)
[2017-11-09] MEDS ORDERED: CHOL1CAP34 PO (11:17)
[2017-11-09] MEDS ORDERED: ZOCO40TA PO (11:17)
[2017-11-09] MEDS ORDERED: AMBI5TAB PO (11:17)
--- NOTE | 2017-11-09 11:25 | RADRPT ---
EXAM DATE/TIME: 11/09/2017 11:00 [facility] COMPARISON: No previous studies available for comparison. INDICATIONS : Medial ankle pain after rolling ankle one week ago. MEDICAL HISTORY : None. SURGICAL HISTORY : None. ENCOUNTER: Initial ACUITY: 1 week PAIN SCORE: 6/10 LOCATION: Right medial ankle. FINDINGS: Three view exam was performed of the right ankle. The bony structures are in normal alignment. No e vidence of fracture or dislocation. There is soft tissue swelling especially medially. The ankle mor tise is intact. No radiopaque foreign bodies are seen. Bony mineralization is normal. There is a mi nimal calcaneal spur at the plantar aponeurosis attachment site. CONCLUSION: Soft tissue swelling. Ge Keith MD on November 09, 2017 at 11:21 Board Certified Radiologist. This report was verified electronically.
== END 2017-11-09 11:46 | disposition home or self-care (01) ==
LOC: NEPC 10:34
DX: S93.401A Sprain of unspecified ligament of right ankle, initial encounter (principal); J45.909 Unspecified asthma, uncomplicated; I10 Essential (primary) hypertension; M19.90 Unspecified osteoarthritis, unspecified site; F32.9 Major depressive disorder, single episode, unspecified; B19.20 Unspecified viral hepatitis C without hepatic coma; X50.9XXA Other and unspecified overexertion or strenuous movements or postures, initial encounter
CPT/HCPCS: 73610; 99283; L1906

== ENCOUNTER 2018-08-24 10:39 | Inpatient (IN) ==
--- NOTE | 2018-08-24 12:07 | ED ---
HPI General Chief Complaint: Chest Pain Stated Complaint: SOB/chest pain Time Seen by Provider: 08/24/18 11:52 Source: patient and family Mode of arrival: ambulatory Limitations: no limitations History of Present Illness HPI narrative: 62-year-old female complaint of chest pain shortness of breath and abdominal distention. Patient states that symptoms started last night. Patient states that the chest pain is localized to left chest aching pain pressure pain without radiation. Patient denies palpitation nausea diaphoresis. Patient has history of hepatitis C and liver cirrhosis. Patient states that she has increased abdominal distention recently. Patient denies abdominal pain. Patient denies any alcohol abuse. Patient has history of heart valve replacement at [facility] in the past. Patient also has history hypertension, hyperlipidemia. Patient is an ex-smoker. Patient has history of asthma. Patient has been using inhaler nebulizer treatment at home. Patient denies any fever chills. Patient denies any coughing congestion. complaint: Reports chest pain STEMI Alert: No Onset (ago): hour(s) Duration: constant Onset: during rest Pain location: Reports left chest Severity: moderate Severity scale (1-10): 7 Quality: Reports tightness and aching Pain radiation: Reports none Relieving factors: nothing Exacerbating factors: nothing Associated symptoms: Reports dyspnea Treatments prior to arrival chest pain: Reports none Related Data Home Medications Medication Instructions Recorded Confirmed amiodarone 200 mg PO DAILY 08/24/18 08/24/18 amlodipine 5 mg PO DAILY 08/24/18 08/24/18 clopidogrel 75 mg PO DAILY 08/24/18 08/24/18 ergocalciferol (vitamin D2) 50,000 unit PO QWEEK 08/24/18 08/24/18 [Vitamin D2] ferrous sulfate 325 mg PO DAILY 08/24/18 08/24/18 furosemide 20 mg PO DAILY 08/24/18 08/24/18 gabapentin 300 mg PO DAILY 08/24/18 08/24/18 pantoprazole 40 mg PO DAILY 08/24/18 08/24/18 Allergies Allergy/AdvReac Type Severity Reaction Status Date / Time No Known Drug Allergies Allergy Unknown unknown Verified 08/24/18 11:44 Review of Systems ROS: all other systems reviewed are negative [facility] Medical History Medical History CAD (coronary artery disease) (Acute) CHF (congestive heart failure) (Acute) GERD (gastroesophageal reflux disease) (Acute) HTN (hypertension) (Acute) Hepatitis C (Acute) Liver cirrhosis (Acute) Pneumonia (Acute) Surgical History Surgical History H/O section (Acute) History of ear surgery (Acute) Social History Social History Substance History: No History of Abuse Second Hand Smoke Exposure: No Smoking Status: Former smoker How Often Do You Have a Drink Containing Alcohol: Monthly or less Recent Travel in [facility] within the Last 8 Weeks: No Recent Out of Country Travel within the Last 8 Weeks: No Immunization History Tetanus Immunization: <5 Years Exam Narrative Exam Narrative: GENERAL: Well-nourished, well-developed patient. SKIN: Focused skin assessment warm/dry. HEAD: Normocephalic. EYES: No scleral icterus. No injection or drainage. NECK: Supple, trachea midline. No JVD or lymphadenopathy. CARDIOVASCULAR: Regular rate and rhythm without murmurs, gallops, or rubs. RESPIRATORY: Breath sounds equal bilaterally. No accessory muscle use. GASTROINTESTINAL: Abdomen distended. No tenderness on palpation. MUSCULOSKELETAL: No cyanosis, or edema. BACK: Nontender without obvious deformity. No CVA tenderness. Neurologic exam normal. Course Initial Documented Vital Signs Temperature 97.8 F 08/24/18 10:51 Pulse Rate 74 08/24/18 10:51 Respiratory Rate 20 08/24/18 10:51 Blood Pressure 160/98 H 08/24/18 10:51 Pulse Oximetry 95 08/24/18 10:51 Last Documented Vital Signs Temperature 97.8 F 08/24/18 10:51 Pulse Rate 75 08/24/18 12:00 Respiratory Rate 25 H 08/24/18 12:00 Blood Pressure 175/72 H 08/24/18 12:00 Pulse Oximetry 90 L 08/24/18 12:02 Medical Decision Making MDM Narrative Medical decision making narrative: 62-year-old female with left-sided chest pain , shortness of breath, abdominal distention. History of liver cirrhosis and asthma. Patient was admitted for chest pain and abdominal ascites. Medical Screen Exam Complete: Yes Emergency Medical Condition: Yes Differential Diagnosis Differential Diagnosis: Differential diagnosis including abdominal ascites, angina, RI, PE, pneumothorax, acute exacerbation of asthma. Lab Data Lab results reviewed: Yes I reviewed the patient's lab results. Result diagrams: 08/24/18 12:12 08/24/18 12:12 Lab Results 08/24/18 08/24/18 08/24/18 Range/Units 12:12 12:12 12:12 WBC 4.8 (4.0-11.0) th/mm3 RBC 3.75 L (4.00-5.30) mil/mm3 Hgb 11.4 L (11.6-15.3) gm/dL Hct 34.0 L (35.0-46.0) % MCV 90.6 (80.0-100.0) fL MCH 30.4 (27.0-34.0) pg MCHC 33.5 (32.0-36.0) % RDW 15.5 (11.6-17.2) % Plt Count 92 L (150-450) th/mm3 MPV 8.6 (7.0-11.0) fL Prelim Diff (Auto) Slide review pending Neut % (Auto) 66.5 (16.0-70.0) % Lymph % (Auto) 14.9 (9.0-44.0) % [place] % (Auto) 9.8 H (0.0-8.0) % Eos % (Auto) 8.0 H (0.0-4.0) % Baso % (Auto) 0.8 (0.0-2.0) % Neut # (Auto) 3.2 (1.8-7.7) th/mm3 Lymph # (Auto) 0.7 L (1.0-4.8) th/mm3 [place] # (Auto) 0.5 (0.0-0.9) th/mm3 Eos # (Auto) 0.4 (0.0-0.4) th/mm3 Baso # (Auto) 0.0 (0.0-0.2) th/mm3 WBC Differential . Diff Scan Auto diff confirmed Differential Comment . Platelet Estimate Low L (Normal) Platelet Morphology Normal (Normal) PT (9.8-11.6) sec INR Ratio APTT (23.4-31.7) sec Sodium 142 (136-145) meq/L Potassium 4.7 (3.5-5.1) meq/L Chloride 107 (98-107) meq/L Carbon Dioxide 28.8 (21.0-32.0) meq/L Anion Gap 6 (5-15) meq/L BUN 17 (7-18) mg/dL Creatinine 0.88 (0.50-1.00) mg/dL Estimated GFR 65 L (>89) mL/min Random Glucose 100 (74-106) mg/dL Calcium 8.2 L (8.5-10.1) mg/dL Total Bilirubin 0.9 (0.2-1.0) mg/dL AST 53 H (15-37) U/L ALT 44 (10-53) U/L Alkaline Phosphatase 145 H (45-117) U/L Ammonia (11-32) mcmol/L Total Creatine Kinase (26-192) U/L CK-MB (CK-2) (0.5-3.6) ng/mL Troponin I Less than 0.02 L (0.02-0.05) ng/mL B-Natriuretic Peptide 32 (0-100) pg/mL Total Protein 6.6 (6.4-8.2) g/dL Albumin 2.4 L (3.4-5.0) g/dL Lipase 486 H (73-393) U/L 08/24/18 08/24/18 08/24/18 Range/Units 12:12 12:13 12:13 WBC (4.0-11.0) th/mm3 RBC (4.00-5.30) mil/mm3 Hgb (11.6-15.3) gm/dL Hct (35.0-46.0) % MCV (80.0-100.0) fL MCH (27.0-34.0) pg MCHC (32.0-36.0) % RDW (11.6-17.2) % Plt Count (150-450) th/mm3 MPV (7.0-11.0) fL Prelim Diff (Auto) Neut % (Auto) (16.0-70.0) % Lymph % (Auto) (9.0-44.0) % [place] % (Auto) (0.0-8.0) % Eos % (Auto) (0.0-4.0) % Baso % (Auto) (0.0-2.0) % Neut # (Auto) (1.8-7.7) th/mm3 Lymph # (Auto) (1.0-4.8) th/mm3 [place] # (Auto) (0.0-0.9) th/mm3 Eos # (Auto) (0.0-0.4) th/mm3 Baso # (Auto) (0.0-0.2) th/mm3 WBC Differential Diff Scan Differential Comment Platelet Estimate (Normal) Platelet Morphology (Normal) PT 11.4 (9.8-11.6) sec INR 1.1 Ratio APTT 26.1 (23.4-31.7) sec Sodium (136-145) meq/L Potassium (3.5-5.1) meq/L Chloride (98-107) meq/L Carbon Dioxide (21.0-32.0) meq/L Anion Gap (5-15) meq/L BUN (7-18) mg/dL Creatinine (0.50-1.00) mg/dL Estimated GFR (>89) mL/min Random Glucose (74-106) mg/dL Calcium (8.5-10.1) mg/dL Total Bilirubin (0.2-1.0) mg/dL AST (15-37) U/L ALT (10-53) U/L Alkaline Phosphatase (45-117) U/L Ammonia Less than 10 L (11-32) mcmol/L Total Creatine Kinase 180 (26-192) U/L CK-MB (CK-2) 2.6 (0.5-3.6) ng/mL Troponin I (0.02-0.05) ng/mL B-Natriuretic Peptide (0-100) pg/mL Total Protein (6.4-8.2) g/dL Albumin (3.4-5.0) g/dL Lipase (73-393) U/L Imaging Data Attestation: I personally reviewed and interpreted this imaging study as follows : Radiologist's impression: Abdomen/Pelvis CT 08/24/18 12:02 CONCLUSION: 1. Cirrhosis with splenomegaly and moderate ascites. 2. Small umbilical hernia containing fat and ascites. No bowel herniation. 3. There are upper limits of normal, most likely reactive willem hepatis, retroperitoneal and cardiophrenic lymph nodes. 4. Body wall edema/anasarca. 5. [id number] right and moderate to large left pleural effusions with atelectasis of the visualized lung bases. 6. Cholelithiasis without convincing evidence of cholecystitis. No duct stone or ductal dilatation seen. Chest X-Ray 08/24/18 12:03 CONCLUSION: Left greater than right basilar parenchymal consolidation and small effusions. Discharge Plan Discharge Disposition Patient Disposition: ED Admit(ED Internal Use Only) Discharge Details Diagnosis: Chest pain, Ascites Physicians Team ED Provider: Butch Wolff Primary Care Provider: Ge Reynolds Rxs /Orders / Referrals /Forms Prescriptions: No Action amiodarone 200 mg Tablet 200 mg PO DAILY RF: 0 clopidogrel 75 mg Tablet 75 mg PO DAILY RF: 0 amlodipine 5 mg Tablet 5 mg PO DAILY RF: 0 pantoprazole 40 mg Tablet,Delayed Release (Dr/Ec) 40 mg PO DAILY RF: 0 ferrous sulfate 325 mg (65 mg iron) Tablet 325 mg PO DAILY RF: 0 gabapentin 300 mg Capsule 300 mg PO DAILY RF: 0 furosemide 20 mg Tablet 20 mg PO DAILY RF: 0 ergocalciferol (vitamin D2) [Vitamin D2] 50,000 unit Capsule 50,000 unit PO QWEEK RF: 0 Discharge Instructions Patient Printed Instructions: Chest Pain (ED) Status ED Status: With Doctor
[2018-08-24 12:24] LABS: Baso % (Auto) 0.8 % (0.0-2.0); Eos # (Auto) 0.4 th/mm3 (0.0-0.4); Hemoglobin 11.4 gm/dL (11.6-15.3); Lymph # (Auto) 0.7 th/mm3 (1.0-4.8); Lymph % (Auto) 14.9 % (9.0-44.0); Mean Corpuscular HGB Conc 33.5 % (32.0-36.0); Mean Corpuscular Hemoglobin 30.4 pg (27.0-34.0); Mean Corpuscular Volume 90.6 fL (80.0-100.0); Mean Platelet Volume 8.6 fL (7.0-11.0); Mono # (Auto) 0.5 th/mm3 (0.0-0.9); Mono % (Auto) 9.8 % (0.0-8.0); Neut # (Auto) 3.2 th/mm3 (1.8-7.7); Neut % (Auto) 66.5 % (16.0-70.0); Platelet Count 92 th/mm3 (150-450); Red Blood Count 3.75 mil/mm3 (4.00-5.30); Red Cell Distribution Width 15.5 % (11.6-17.2); White Blood Count 4.8 th/mm3 (4.0-11.0)
[2018-08-24 12:33] LABS: Activated Partial Thrombo Time 26.1 sec (23.4-31.7); INR 1.1 Ratio; Prothrombin Time 11.4 sec (9.8-11.6)
[2018-08-24 12:44] LABS: Alanine Aminotransferase 44 U/L (10-53); Albumin 2.4 g/dL (3.4-5.0); Anion Gap 6 meq/L (5-15); Aspartate Aminotransferase 53 U/L (15-37); Blood Urea Nitrogen 17 mg/dL (7-18); Calcium 8.2 mg/dL (8.5-10.1); Carbon Dioxide 28.8 meq/L (21.0-32.0); Chloride 107 meq/L (98-107); Glomerular Filtration Rate 65 mL/min (>89); Glucose,Random 100 mg/dL (74-106); Lipase 486 U/L (73-393); Sodium 142 meq/L (136-145)
[2018-08-24 12:45] LABS: Potassium 4.7 meq/L (3.5-5.1)
[2018-08-24 12:47] LABS: Alkaline Phosphatase 145 U/L (45-117); Total Protein 6.6 g/dL (6.4-8.2)
[2018-08-24 12:53] LABS: Platelet Morphology Normal (Normal)
--- NOTE | 2018-08-24 13:11 | XR ---
EXAM DATE: 08/24/2018 12:27 PM EST AGE/SEX: 62 years / Female INDICATIONS: Shortness of breath. CLINICAL DATA: This is the patient's initial encounter. Patient reports that signs and symptoms have been present for 1 day and indicates a pain score of 0/10. MEDICAL/SURGICAL HISTORY: . Hypertension. small bowel obstruction, asthma. . Tubal ligation. C esarean section. COMPARISON: [facility] [place], CHEST SINGLE AP, 04/16/2017. . FINDINGS: Small pleural effusions and mild consolidation seen at each lung base, left more so than right. No pn eumothorax. Heart size within normal limits. There is a endoluminal graft of the aortic valve. CONCLUSION: Left greater than right basilar parenchymal consolidation and small effusions. Electronically signed by: Ge Georges MD Board Certified Radiologist 08/24/2018 1:09 PM EST
[2018-08-24 13:15] LABS: Creatine Kinase 180 U/L (26-192)
[2018-08-24 13:37] LABS: Creatine Kinase MB 2.6 ng/mL (0.5-3.6)
--- NOTE | 2018-08-24 15:00 | CT ---
EXAM DATE: 08/24/2018 2:52 PM EST AGE/SEX: 62 years / Female INDICATIONS: Ascites. Abdominal distention for a couple weeks. Short of breath and chest pain since last night. CLINICAL DATA: This is the patient's initial encounter. Patient reports that signs and symptoms have been present for 2 weeks and indicates a pain score of 9/10. MEDICAL/SURGICAL HISTORY: Cardiovascular disease. Congestive heart failure. Gastroesophageal reflux disease. Hepatitis C. Hypertension. Cirrhosis. section. RADIATION DOSE: 24.57 CTDI (mGy) COMPARISON: [facility] [place], CT ABDOMEN & PELVIS W CONTRAST, 09/12/2015. . TECHNIQUE: Multiple contiguous axial images were obtained through the abdomen. Images were obtained using multiple row detector helical technique. Using automated exposure control and adjustment of the mA and/or kV according to patient size, radiation dose was kept as low as reasonably achievable to o btain optimal diagnostic quality images. DICOM format image data is available electronically for rev iew and comparison. FINDINGS: A noncontrast study was done. There is shrunken and nodular liver consistent with cirrhosis. Spleen measures 15 cm craniocaudal. No focal hepatic or splenic lesions are demonstrated. There is moderate ascites. Noncontrast appearance of the pancreas, adrenal glands and kidneys is within normal limits. No obstruction or inflammatory changes seen of the gastrointestinal tract. No free air. There are willem hepatis and retroperitoneal lymph nodes that measure up to 10 mm across. Similar size lymph nodes are seen in the cardiophrenic fat of the visualized lung bases. There is an umbilical hernia containing fat and ascitic fluid. There is diffuse body wall edema/anasa rca. Small moderate right and moderate to large left pleural effusions are present and there is atele ctasis of the bases, mostly on the left. Multiple small gravel-like stones are seen within the gallbladder. Abdominal aorta is atherosclerotic. No aneurysm. CONCLUSION: 1. Cirrhosis with splenomegaly and moderate ascites. 2. Small umbilical hernia containing fat and ascites. No bowel herniation. 3. There are upper limits of normal, most likely reactive willem hepatis, retroperitoneal and cardio phrenic lymph nodes. 4. Body wall edema/anasarca. 5. Gaaix-bn-mhabjwsp right and moderate to large left pleural effusions with atelectasis of the visu alized lung bases. 6. Cholelithiasis without convincing evidence of cholecystitis. No duct stone or ductal dilatation s een. Electronically signed by: Ge Georges MD Board Certified Radiologist 08/24/2018 2:59 PM EST
[2018-08-24] MEDS ORDERED: Acetaminophen 325 MG Tablet PO PRN (16:06)
[2018-08-24] MEDS ORDERED: Bisacodyl 10 MG Supp RECTAL PRN (16:06)
[2018-08-24] MEDS ORDERED: Heparin - SQ 10,000 UNITS/ML Vial SQ SCH (16:15)
--- NOTE | 2018-08-24 17:54 | P.HPIM ---
History of Present Illness Primary Care Physician: Ge Reynolds MD Patient is a pleasant 62 year old female with past medical history of hep C ( s/ p treatment) complicated by liver cirrhosis, HLD and asthma who presents with SOB. Transaltion provided by brother at the bedside. As per patient she originally started having SOB approximately 3 weeks ago but came in after acutely noticing her breathing got worse the last 24hrs. Patient tried nebulizer treatments thinking the SOB was due to asthma but did not have improvement. She reports that her weight was increasing and it got harder to breathe. 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 Patient reports that she is good with taking her lasix 20mg qD and denied having salty foods or poor diet. Of note, last january patient had a valve replace due to it being narrowed but unsure which valve but says it was done at [facility]. Patient denied any fever or chills. Only pain was from the belly getting larger. In ED initial trop was negative and I personally reviewed EKG which showed sinus at 71 without T wave changes or ST segment compromise. Patient abdomen was large and medicine was consulted for management. Allergy: NKDA social: former tobacco user 30 years quit 16 years ago, denied ETOH, lives alone family history: No HLD, DM. Brother (roz) - HTN, son HTN and mom HTN surgical: medication: see emr medical history: asthma, hld, hep c, valve replacement PMD: Ge reynolds [phone] GI - doesnt have one currently ( 2-3 years last follow up) Inpatient Certification Inpatient Certification: I certify that the inpatient services were ordered in accordance with Medicare regulations governing the order. This includes certification that hospital inpatient services are reasonable and necessary and in the case of services not specified as inpatient-only under 42 CFR 419.22(n), that they are appropriately provided as inpatient services in accordance to with the 2-midnight benchmark under 43 CFR 412.3(e) Estimated Total Length of Stay (Days): 3 Plans for Post Hospital Care: Home Review of Systems Review of Systems: all other systems reviewed are negative [facility] Medical History Medical History CAD (coronary artery disease) (Acute) CHF (congestive heart failure) (Acute) GERD (gastroesophageal reflux disease) (Acute) HTN (hypertension) (Acute) Hepatitis C (Acute) Liver cirrhosis (Acute) Pneumonia (Acute) Surgical History Surgical History H/O section (Acute) History of ear surgery (Acute) Social History Social History Substance History: No History of Abuse Second Hand Smoke Exposure: No Smoking Status: Former smoker How Often Do You Have a Drink Containing Alcohol: Monthly or less Recent Travel in [facility] [place] within the Last 8 Weeks: No Recent Out of Country Travel within the Last 8 Weeks: No Immunization History Tetanus Immunization: <5 Years Medications and Allergies Allergies Allergy/AdvReac Type Severity Reaction Status Date / Time No Known Drug Allergies Allergy Unknown unknown Verified 08/24/18 11:44 Home Medications Medication Instructions Recorded Confirmed Type amiodarone 200 mg PO DAILY 08/24/18 08/24/18 History amlodipine 5 mg PO DAILY 08/24/18 08/24/18 History clopidogrel 75 mg PO DAILY 08/24/18 08/24/18 History ergocalciferol (vitamin D2) 50,000 unit PO QWEEK 08/24/18 08/24/18 History [Vitamin D2] ferrous sulfate 325 mg PO DAILY 08/24/18 08/24/18 History furosemide 20 mg PO DAILY 08/24/18 08/24/18 History gabapentin 300 mg PO DAILY 08/24/18 08/24/18 History pantoprazole 40 mg PO DAILY 08/24/18 08/24/18 History Active Medications: Active Medications Acetaminophen (Tylenol) 650 mg PO Q4H PRN PRN Reason: Temp > 100.4 Al Hydroxide/Mg Hydroxide (Milk Of Magnesia Liq) 30 ml PO Q12H PRN PRN Reason: Mild Constipation Bisacodyl (Dulcolax Supp) 10 mg RECTAL DAILY PRN PRN Reason: SEVERE CONSITIPATION Lactulose (Lactulose Liq) 30 ml PO DAILY PRN PRN Reason: SEVERE CONSITIPATION Ondansetron HCl (Zofran Inj) 4 mg IV.PUSH Q6H PRN PRN Reason: NAUSEA OR VOMITING Senna/Docusate Sodium (Karla-Colace) 1 tab PO BID ROSELIA Sennosides (Senokot) 17.2 mg PO Q12H PRN PRN Reason: Moderate Constipation Sodium Chloride (Ns Flush) 2 ml IV.FLUSH BID ROSELIA Sodium Chloride (Ns Flush) 2 ml IV.FLUSH PRN PRN PRN Reason: FLUSH AFTER USING IV ACCESS Physical Exam Vital signs: Vital Signs 08/24/18 10:51 08/24/18 11:40 08/24/18 12:00 Temperature 97.8 F Pulse Rate 74 71 75 Respiratory Rate 20 27 H 25 H Blood Pressure 160/98 H 136/63 175/72 H Pulse Oximetry 95 90 L 98 08/24/18 12:02 Temperature Pulse Rate Respiratory Rate Blood Pressure Pulse Oximetry 90 L Intake & Output 08/23/18 08/24/18 08/24/18 18:59 06:59 18:59 Weight 93.44 kg general: NAD heent: EOMI CVS: + systolic murmur Resp: reduced breathsounds at lung base bilaterally GI: large abdominal ascities with fluid waves and shifting dullness, no guarding , no rebound, + bowel sounds Results Labs CBC & Chem 7: 08/24/18 12:12 08/24/18 12:12 Imaging Impressions Abdomen/Pelvis CT 08/24/18 12:02 CONCLUSION: 1. Cirrhosis with splenomegaly and moderate ascites. 2. Small umbilical hernia containing fat and ascites. No bowel herniation. 3. There are upper limits of normal, most likely reactive willem hepatis, retroperitoneal and cardiophrenic lymph nodes. 4. Body wall edema/anasarca. 5. Cwpwx-[id number]-nwslpovk right and moderate to large left pleural effusions with atelectasis of the visualized lung bases. 6. Cholelithiasis without convincing evidence of cholecystitis. No duct stone or ductal dilatation seen. Chest X-Ray 08/24/18 12:03 CONCLUSION: Left greater than right basilar parenchymal consolidation and small effusions. Caprini VTE Risk Assessment Caprini VTE Risk Assessment: Moderate/High Risk (score >= 2) Caprini Risk Assessment Model: Point Value = 1 Point Value = 2 Point Value = 3 Point Value = 5 Age 41-60 Minor surgery BMI > 25 kg/m2 Swollen legs Varicose veins or History of unexplained or recurrent spontaneous Oral contraceptives or hormone replacement Sepsis (< 1 month) Serious lung disease, including pneumonia (< 1 month) Abnormal pulmonary function Acute myocardial infarction Congestive heart failure (< 1 month) History of inflammatory bowel disease Medical patient at bed rest Age 61-74 Arthroscopic surgery Major open surgery (> 45 min) Laparoscopic surgery (> 45 min) Malignancy Confined to bed (> 72 hours) Immobilizing plaster cast Central venous access Age >= 75 History of VTE Family history of VTE Factor V Leiden Prothrombin [id number] Lupus anticoagulant Anticardiolipin antibodies Elevated serum homocysteine Heparin-induced thrombocytopenia Other congenital or acquired thrombophilia Stroke (< 1 month) Elective arthroplasty Hip, pelvis, or leg fracture Acute spinal cord injury (< 1 month) Prophylaxis Regimen: Total Risk Factor Score Risk Level Prophylaxis Regimen 0-1 Low Early ambulation 2 Moderate Order ONE of the following: *Sequential Compression Device (SCD) *Heparin 5000 units SQ BID 3-4 Higher Order ONE of the following medications: *Heparin 5000 units SQ TID *Enoxaparin/Lovenox 40 mg SQ daily (WT < 150 kg, CrCl > 30 mL/min) *Enoxaparin/Lovenox 30 mg SQ daily (WT < 150 kg, CrCl > 10-29 mL/min) *Enoxaparin/Lovenox 30 mg SQ BID (WT < 150 kg, CrCl > 30 mL/min) AND/OR *Sequential Compression Device (SCD) 5 or more Highest Order ONE of the following medications: *Heparin 5000 units SQ TID (Preferred with Epidurals) *Enoxaparin/Lovenox 40 mg SQ daily (WT < 150 kg, CrCl > 30 mL/min) *Enoxaparin/Lovenox 30 mg SQ daily (WT < 150 kg, CrCl > 10-29 mL/min) *Enoxaparin/Lovenox 30 mg SQ BID (WT < 150 kg, CrCl > 30 mL/min) AND *Sequential Compression Device (SCD) Assessment and Plan Plan Patient is a 62 year old female with past history of hep C w/ cirrhosis presenting with SOB found to have large abdominal ascites Gastroenterology: Hep C, cirrhosis - Gastroenterology will need to see this patient as she was lost ot follow up and have large amount of abdominal fluid on exam - ADD spirolactone 50mg now and increase lasix to 40mg. Goal will be spirnolactone 100mg and lasix 40mg. usually you start with 100mg but will start low and titrate up - IR consult for paracentesis and will 100% need albumin afterwards. diagnostic and therapeutic - NPO at midnight - coags for am - will check Abd u/s to screen for portal vein thrombosis - Removal of less than 5 liters of fluid does not appear to have hemodynamic or hormonal consequences, and post-paracentesis colloid infusion does not appear to be necessary usually but for larger paracenteses, albumin (6 to 8 g/L of fluid removed) will be given for this patient as I am SURE that a large amount of fluid will come off. - [facility] to monitor I/O - daily BMP levels Cardiology: Valve repalcement - HOLD plavix and resume 08/25 after paracentesis completed - HOLD amlodipine 5mg as starting spirnolactone and inc lasix to 40mg - continue amiodarone 200mg qD code: FC ( confirmed at bedside) dvt ppx: SCD ( bruising noted on thigh and plt of 91K) dispo: med/surg unit diet: 2g salt restriction diet Roz brother: [phone] plan discussed with patient and brother at bedside and all questions answered.
[2018-08-24] MEDS: Ferrous Sulfate 325 MG Tablet PO SCH (18:29)
[2018-08-24] MEDS: Amiodarone 200 MG Tablet PO SCH (18:30)
[2018-08-24] MEDS: Furosemide 20 MG Tablet PO SCH (18:30)
[2018-08-24] MEDS: Gabapentin 300 MG Capsule PO SCH (18:31)
[2018-08-24] MEDS: Spironolactone 50 MG Tablet PO SCH (19:10)
[2018-08-24] MEDS: Senna/Docusate Sodium 8.6/50 MG Tablet PO SCH (22:14)
[2018-08-25] MEDS: Furosemide 20 MG Tablet PO SCH (08:20)
[2018-08-25] MEDS: Ferrous Sulfate 325 MG Tablet PO SCH (08:20)
[2018-08-25] MEDS: Amiodarone 200 MG Tablet PO SCH (08:20)
[2018-08-25] MEDS: Spironolactone 50 MG Tablet PO SCH (08:20)
[2018-08-25] MEDS: Gabapentin 300 MG Capsule PO SCH (08:21)
[2018-08-25] MEDS: Senna/Docusate Sodium 8.6/50 MG Tablet PO SCH ×2 (08:21→21:40)
[2018-08-25 09:21] LABS: Baso % (Auto) 0.7 % (0.0-2.0); Eos # (Auto) 0.4 th/mm3 (0.0-0.4); Eos % (Auto) 9.5 % (0.0-4.0); Hematocrit 32.6 % (35.0-46.0); Lymph # (Auto) 0.6 th/mm3 (1.0-4.8); Lymph % (Auto) 14.4 % (9.0-44.0); Mean Corpuscular HGB Conc 33.8 % (32.0-36.0); Mean Corpuscular Hemoglobin 30.3 pg (27.0-34.0); Mean Corpuscular Volume 89.5 fL (80.0-100.0); Mean Platelet Volume 8.5 fL (7.0-11.0); Mono # (Auto) 0.4 th/mm3 (0.0-0.9); Neut # (Auto) 2.6 th/mm3 (1.8-7.7); Neut % (Auto) 66.4 % (16.0-70.0); Platelet Count 78 th/mm3 (150-450); Red Blood Count 3.64 mil/mm3 (4.00-5.30); Red Cell Distribution Width 15.3 % (11.6-17.2); White Blood Count 3.9 th/mm3 (4.0-11.0)
[2018-08-25 09:53] LABS: Alanine Aminotransferase 42 U/L (10-53); Albumin 2.3 g/dL (3.4-5.0); Alkaline Phosphatase 144 U/L (45-117); Anion Gap 10 meq/L (5-15); Aspartate Aminotransferase 35 U/L (15-37); Blood Urea Nitrogen 14 mg/dL (7-18); Calcium 8.2 mg/dL (8.5-10.1); Carbon Dioxide 28.5 meq/L (21.0-32.0); Chloride 106 meq/L (98-107); Glomerular Filtration Rate 80 mL/min (>89); Glucose,Random 81 mg/dL (74-106); Ovalocytes 1+; Potassium 3.9 meq/L (3.5-5.1); Sodium 144 meq/L (136-145); Total Protein 6.6 g/dL (6.4-8.2)
[2018-08-25 09:54] LABS: Platelet Morphology Normal (Normal)
--- NOTE | 2018-08-25 11:03 | P.PNIM ---
Subjective Interval history: Patient seen with her brother serving as dairy bar manager per her request. She reports she is feeling okay today. She has been urinating a lot. Still with obvious extensive fluid overload. Physical Exam Vital signs: Vital Signs 08/24/18 11:40 08/24/18 12:00 08/24/18 12:02 Temperature Pulse Rate 71 75 Respiratory Rate 27 H 25 H Blood Pressure 136/63 175/72 H Pulse Oximetry 90 L 98 90 L 08/24/18 15:00 08/24/18 18:00 08/24/18 19:46 Temperature Pulse Rate 68 69 69 Respiratory Rate 25 H 28 H 18 Blood Pressure 141/82 H 160/88 H 155/70 H Pulse Oximetry 100 100 97 08/24/18 22:06 08/25/18 00:00 08/25/18 04:00 Temperature 98.1 F 97.9 F Pulse Rate 67 64 61 Respiratory Rate 18 16 16 Blood Pressure 144/65 H 160/75 H 144/56 H Pulse Oximetry 96 94 L 97 08/25/18 08:09 08/25/18 08:13 Temperature 97.5 F L Pulse Rate 68 Respiratory Rate 20 Blood Pressure 135/73 Pulse Oximetry 94 L 96 Intake & Output 08/24/18 08/25/18 08/25/18 18:59 06:59 18:59 Weight 93.44 kg 93.44 kg Other: # Voids 2 Date of Last Bowel Movement 08/24/18 Weight On Admission 93.44 kg Narrative: GENERAL: Obese female in no acute distress CARDIOVASCULAR: Normal rate and regular rhythm without murmurs, gallops, or rubs. RESPIRATORY: Good respiratory efforts. Bibasilar crackles. GASTROINTESTINAL: Abdomen is obese with obvious large volume ascites and fluid wave. MUSCULOSKELETAL: 2+ bilateral lower extremity edema NEURO: Alert & Oriented x4 to person, place, time, situation. Moves all ext x4 PSYCH: Appropriate mood and affect. Results Labs CBC & Chem 7: 08/25/18 08:04 08/25/18 08:04 Imaging Imaging: Impressions Abdomen/Pelvis CT 08/24/18 12:02 CONCLUSION: 1. Cirrhosis with splenomegaly and moderate ascites. 2. Small umbilical hernia containing fat and ascites. No bowel herniation. 3. There are upper limits of normal, most likely reactive willem hepatis, retroperitoneal and cardiophrenic lymph nodes. 4. Body wall edema/anasarca. 5. Icoul-fu-vmedsxtt right and moderate to large left pleural effusions with atelectasis of the visualized lung bases. 6. Cholelithiasis without convincing evidence of cholecystitis. No duct stone or ductal dilatation seen. Chest X-Ray 08/24/18 12:03 CONCLUSION: Left greater than right basilar parenchymal consolidation and small effusions. Assessment and Plan Plan 62 year old female with past history of hep C w/ cirrhosis presenting with SOB found to have large abdominal ascites. Apparently patient was previously seen at [facility] but somehow was lost to follow-up. Hep C, cirrhosis with ascites. SHortness of breath. - We will continue with diuresis including Lasix IV, spironolactone. We will add propranolol if blood pressure can tolerate. - IR consulted for diagnostic and therapeutic paracentesis. Albumin per protocol - Monitor I&O - daily BMP History of CAD and heart valve replacement: - HOLD plavix and resume 08/25 after paracentesis completed - HOLD amlodipine 5mg to see how BP tolerate spironolactone and increased dose of Lasix. - continue amiodarone 200mg qD - No chest pain. Cardiac enzymes egative. code: Full dvt ppx: SCD, chemoprophylaxis contraindicated given thrombocytopenia / coagulopathy from cirrhosis Discussed Condition With: Patient and her brother at bedside. Progress Note: Quality VTE Deep Vein Thrombosis/Pulmonary Embolism Present on Admission: No
--- NOTE | 2018-08-25 11:04 | ECHRPT ---
Indication: Shortness of breath, CONCLUSIONS Normal left ventricular size. Mild concentric left ventricular hypertrophy. The left ventricular systolic function is normal with an estimated ejection fraction in the range of 60-65%. The left atrial size is mildly dilated. Mild thickening of the mitral valve leaflets. Cnchh-tj-[id number] mitral valve regurgitation. EVOLUT PRO transcatheter Aortic valve implant 02/18/18. Aortic valve mean gradient 9 mmHg. There is moderate tricuspid regurgitation. The estimated pulmonary arterial pressure is 55 mmHg. There is a small pericardial effusion present. A left sided pleural effusion is noted. BP: / HR: Rhythm: MEASUREMENTS (Male / Female) Normal Values Technical Quality:Very technically difficult study 2D ECHO LV Diastolic Diameter PLAX 4.0 cm 4.2 - 5.9 / 3.9 - 5.3 cm LV Systolic Diameter PLAX 2.7 cm IVS Diastolic Thickness 1.1 cm 0.6 - 1.0 / 0.6 - 0.9 cm LVPW Diastolic Thickness 1.3 cm 0.6 - 1.0 / 0.6 - 0.9 cm LV Relative Wall Thickness 0.6 RV Internal Dim ED PLAX 3.8 cm LVOT Diameter 1.6 cm Aortic Root Diameter 2.0 cm LA Systolic Diameter LX 3.8 cm 3.0 - 4.0 / 2.7 - 3.8 cm M-MODE Aortic Root Diameter MM 2.0 cm LA Systolic Diameter MM 5.7 cm LA Ao Ratio MM 2.9 AV Cusp Separation MM 1.5 cm DOPPLER AV Peak Velocity 208.3 cm/s AV Peak Gradient 17.4 mmHg AV Mean Gradient 9.0 mmHg AV Velocity Time Integral 42.3 cm LVOT Peak Velocity 111.0 cm/s LVOT Peak Gradient 4.9 mmHg LVOT Velocity Time Integral 24.7 cm AV Area Cont Eq vti 1.1 cm AV Area Cont Eq pk 1.0 cm Mitral E Point Velocity 84.4 cm/s Mitral A Point Velocity 107.0 cm/s Mitral E to A Ratio 0.8 LV E' Lateral Velocity 3.0 cm/s Mitral E to LV E' Lateral Ratio 27.9 LV E' Septal Velocity 7.1 cm/s Mitral E to LV E' Septal Ratio 11.9 TR Peak Velocity 337.0 cm/s TR Peak Gradient 45.4 mmHg Right Atrial Pressure 10.0 mmHg Pulmonary Artery Systolic Pressu 55.4 mmHg Right Ventricular Systolic Press 55.4 mmHg PV Peak Velocity 140.0 cm/s PV Peak Gradient 7.8 mmHg FINDINGS LEFT VENTRICLE Normal left ventricular size. Mild concentric left ventricular hypertrophy. The left ventricular systolic function is normal with an estimated ejection fraction in the range of 60-65%. RIGHT VENTRICLE Normal right ventricular size and systolic function. LEFT ATRIUM The left atrial size is mildly dilated. RIGHT ATRIUM The right atrial size is normal. ATRIAL SEPTUM Normal atrial septal thickness without atrial level shunting by limited color doppler interrogation. AORTA The aortic root and proximal ascending aorta are normal in size on limited imaging. MITRAL VALVE Mild thickening of the mitral valve leaflets. Golhz-cx-[id number] mitral valve regurgitation. AORTIC VALVE EVOLUT PRO transcatheter Aortic valve implant 02/18/18. Aortic valve mean gradient 9 mmhg. TRICUSPID VALVE There is moderate tricuspid regurgitation. The estimated pulmonary arterial pressure is 55 mmHg. PULMONARY VALVE No pulmonary valve regurgitation or stenosis. VESSELS The inferior vena cava is normal in size. PERICARDIUM There is a small pericardial effusion present. A large left sided pleural effusion is noted. Tayo Graham MD, FACC (Electronically Signed) Final Date:25 August 2018 11:03
--- NOTE | 2018-08-25 13:14 | US ---
EXAM DATE: 08/25/2018 12:33 PM EST AGE/SEX: 62 years / Female INDICATIONS: Ascites. CLINICAL DATA: This is the patient's initial encounter. Patient reports that signs and symptoms have been present for 1 day and indicates a pain score of 3/10. MEDICAL/SURGICAL HISTORY: Hepatitis C. Cirrhosis. Asthma. HTN. CAD. CHF. GERD. Pneumonia. C esarean section. Ear surgery. Heart valve replacement. COMPARISON: [facility], CT ABDOMEN & PELVIS W/O CONTRAST, 08/24/2018. . FLUID: Total volume of 4200 cc of clear, yellow fluid was removed. Fluid was sent to lab for ordered studies . . . TECHNIQUE: Ultrasound guidance for abdominal paracentesis. Paracentesis. The risks, benefits, and alternatives to ultrasound guided paracentesis were explained to the patient in detail including the risk of bleeding and infection. Written and verbal informed consent was obt ained. With the patient on the ultrasound table, ultrasound imaging was used to select the most appropriate approach for paracentesis. Overlying skin was prepped and draped in the usual sterile fashion and wi th a local anesthetic, a dermatotomy was made with an 11 blade scalpel. A 6 Italian [id number]-X-qbzpunjo ca theter was introduced into the peritoneal cavity and fluid was collected. Post procedure scanning reveals no hematoma or other complication. The patient tolerated the procedu re well and left the ultrasound suite in stable condition. FINDINGS: Adequate fluid for paracentesis. CONCLUSION: 1. Uncomplicated paracentesis. 4200 cc of clear yellow fluid were removed and sent to lab for ordere d studies. Electronically signed by: Tan Goldberg MD Board Certified Radiologist 08/25/2018 1:13 PM EST
[2018-08-25 13:24] LABS: Total Protein,Peritoneal Fluid 0.6 gm/dL
[2018-08-25 13:31] LABS: RBC,Peritoneal Fluid 72 /mm3 (0-0)
[2018-08-25 13:33] LABS: Mesothelial,Peritoneal Fluid 2 %; Neutrophils,Peritoneal Fluid 7 %
--- NOTE | 2018-08-25 13:47 | P.CONGI ---
History of Present Illness Consult date: 08/25/18 Consult reason: For abdominal ascites with cirrhosis 10 L abdominal ascites Chief complaint: Chest pain. Abdominal ascites. History of Present Illness: This is an unfortunate 62-year-old female patient [place]-speaking who has a significant medical history of hepatitis C and now with liver cirrhosis. Patient reported that she finished treatment with hepatitis C in the past however due to lost to follow-up patient cannot tell which medication she took or which gastroenterology office she went. Today patient presented with shortness of breathing due to massive abdominal enlargement accompanied by her brother who translated most of this conversation. Patient was initially diagnosed with hep C in 2010 in her abdominal enlargement started in 2011. Patient stated that 2 weeks ago they went to [facility] for pneumonia and was admitted there but her liver cirrhosis was not address. Patient reported after her discharge from the hospital for pneumonia she was only given Lasix. Patient noted that her belly was increasingly getting harder and she is having labored breathing prompted her brother to bring her to this hospital. Patient denies chills and fever no nausea and vomiting mild abdominal pain due to the abdominal distention. Patient cannot recall gastroenterology is who manages her. when asked what is the reason why she was unable to follow-up before for the last 2 years as patient stated that it all because of her insurance has . Our service is consulted for abdominal ascites with cirrhosis. Review of Systems All other systems reviewed negative except as stated in HPI PMFSH - History History Provided By: Patient - Medical History Medical History: Medical History (Last Reviewed 08/25/18 @ 07:55 by Brent Chew) CAD (coronary artery disease) CHF (congestive heart failure) GERD (gastroesophageal reflux disease) HTN (hypertension) Hepatitis C Liver cirrhosis Pneumonia - Surgical History Surgical History: Surgical History (Last Reviewed 08/25/18 @ 07:55 by Brent Chew) H/O section History of ear surgery - Tobacco History Second Hand Smoke Exposure: Yes (Pts brother but not often) Tobacco Use In Past 30 Days: No Smoking Status: Former smoker - Alcohol History How Often Do You Have a Drink Containing Alcohol: Never - Substance Use History Substance History: No History of Abuse - Travel History Recent Travel in the [facility] Within the Last 8 Weeks: No Recent Travel Out of the Country Within the Last 8 Weeks: No - Immunization History Tetanus Immunization: Unsure Hx Influenza Vaccine This Season: Yes Medications and Allergies Active Medications: Active Medications Acetaminophen (Tylenol) 650 mg PO Q4H PRN PRN Reason: Temp > 100.4 Al Hydroxide/Mg Hydroxide (Milk Of Magnesia Liq) 30 ml PO Q12H PRN PRN Reason: Mild Constipation Albuterol (Duoneb Neb (Prn)) 1 ampul NEB Q6HR NEB PRN PRN Reason: SHORTNESS OF BREATH Amiodarone HCl (Cordarone) 200 mg PO DAILY [facility] Last Admin: 08/25/18 08:20 Dose: 200 mg Bisacodyl (Dulcolax Supp) 10 mg RECTAL DAILY PRN PRN Reason: SEVERE CONSITIPATION Ergocalciferol (Vitamin D2) 50,000 unit PO Q7D [facility] Last Admin: 08/24/18 19:10 Dose: 50,000 unit Ferrous Sulfate (Ferosul) 325 mg PO DAILY [facility] Last Admin: 08/25/18 08:20 Dose: 325 mg Furosemide (Lasix) 40 mg PO DAILY [facility] Last Admin: 08/25/18 08:20 Dose: 40 mg Gabapentin (Neurontin) 300 mg PO DAILY [facility] Last Admin: 08/25/18 08:21 Dose: 300 mg Lactulose (Lactulose Liq) 30 ml PO DAILY PRN PRN Reason: SEVERE CONSITIPATION Ondansetron HCl (Zofran Inj) 4 mg IV.PUSH Q6H PRN PRN Reason: NAUSEA OR VOMITING Pantoprazole Sodium (Protonix) 40 mg PO DAILY [facility] Last Admin: 08/25/18 08:21 Dose: 40 mg Senna/Docusate Sodium (Karla-Colace) 1 tab PO BID [facility] Last Admin: 08/25/18 08:21 Dose: Not Given Sennosides (Senokot) 17.2 mg PO Q12H PRN PRN Reason: Moderate Constipation Sodium Chloride (Ns Flush) 2 ml IV.FLUSH BID [facility] Last Admin: 08/25/18 10:19 Dose: 2 ml Sodium Chloride (Ns Flush) 2 ml IV.FLUSH PRN PRN PRN Reason: FLUSH AFTER USING IV ACCESS Spironolactone (Aldactone) 50 mg PO DAILY [facility] Last Admin: 08/25/18 08:20 Dose: 50 mg Allergies Allergy/AdvReac Type Severity Reaction Status Date / Time No Known Drug Allergies Allergy Unknown unknown Verified 08/24/18 11:44 Home Medications Medication Instructions Recorded Confirmed Type amiodarone 200 mg PO DAILY 08/24/18 08/24/18 History amlodipine 5 mg PO DAILY 08/24/18 08/24/18 History clopidogrel 75 mg PO DAILY 08/24/18 08/24/18 History ergocalciferol (vitamin D2) 50,000 unit PO QWEEK 08/24/18 08/24/18 History [Vitamin D2] ferrous sulfate 325 mg PO DAILY 08/24/18 08/24/18 History furosemide 20 mg PO DAILY 08/24/18 08/24/18 History gabapentin 300 mg PO DAILY 08/24/18 08/24/18 History pantoprazole 40 mg PO DAILY 08/24/18 08/24/18 History Exam Vital signs: Vital Signs 08/24/18 15:00 08/24/18 18:00 08/24/18 19:46 Temperature Pulse Rate 68 69 69 Respiratory Rate 25 H 28 H 18 Blood Pressure 141/82 H 160/88 H 155/70 H Pulse Oximetry 100 100 97 08/24/18 22:06 08/25/18 00:00 08/25/18 04:00 Temperature 98.1 F 97.9 F Pulse Rate 67 64 61 Respiratory Rate 18 16 16 Blood Pressure 144/65 H 160/75 H 144/56 H Pulse Oximetry 96 94 L 97 08/25/18 08:09 08/25/18 08:13 08/25/18 11:12 Temperature 97.5 F L 98.4 F Pulse Rate 68 68 Respiratory Rate 20 22 Blood Pressure 135/73 160/79 H Pulse Oximetry 94 L 96 92 L 08/25/18 12:20 08/25/18 12:35 Temperature 97.7 F 97.8 F Pulse Rate 70 68 Respiratory Rate 22 22 Blood Pressure 176/56 H 162/56 H Pulse Oximetry 92 L Intake & Output 08/24/18 08/25/18 08/25/18 18:59 06:59 18:59 Weight 93.44 kg 93.44 kg Other: # Voids 2 Date of Last Bowel Movement 08/24/18 Weight On Admission 93.44 kg - Constitutional mild distress, obese - Routine HEENT Exam Head: Present: normocephalic - Routine Neck Exam Present: supple - Routine Respiratory Exam Present: CTA bilaterally - Routine Cardiovascular Exam Present: RRR, S1, S2 - Routine Abdominal Exam Present: normoactive bowel sounds, distended. Absent: tenderness - Detailed Abdominal Exam Palpation/Percussion: Present: shifting dullness, fluid waves - Routine Skin Exam Present: intact - Routine Neurological Exam Present: alert, oriented X3 Results - Labs CBC & Chem 7: 08/25/18 08:04 08/25/18 08:04 Labs: Laboratory Results - last 24 hr 08/24/18 08/24/18 08/25/18 12:13 18:15 08:04 WBC 3.9 L RBC 3.64 L Hgb 11.0 L Hct 32.6 L MCV 89.5 MCH 30.3 MCHC 33.8 RDW 15.3 Plt Count 78 L MPV 8.5 Prelim Diff (Auto) Slide review pending Neut % (Auto) 66.4 Lymph % (Auto) 14.4 [place] % (Auto) 9.0 H Eos % (Auto) 9.5 H Baso % (Auto) 0.7 Neut # (Auto) 2.6 Lymph # (Auto) 0.6 L [place] # (Auto) 0.4 Eos # (Auto) 0.4 Baso # (Auto) 0.0 WBC Differential . Diff Scan Auto diff confirmed Differential Comment . Platelet Estimate Low L Platelet Morphology Normal Ovalocytes 1+ H Sodium Potassium Chloride Carbon Dioxide Anion Gap BUN Creatinine Estimated GFR Random Glucose Calcium Total Bilirubin Direct Bilirubin Indirect Bilirubin AST ALT Alkaline Phosphatase CK-MB (CK-2) 2.6 Troponin I Less than 0.02 L Total Protein Albumin Peritoneal RBC Periton Nuc Cells Periton Neutrophils Periton Lymphocytes Peritoneal Monocytes Periton Mesothelial Periton Histiocytes Peritoneal Tot Protein Peritoneal Albumin 08/25/18 08/25/18 08/25/18 08:04 11:49 11:49 WBC RBC Hgb Hct MCV MCH MCHC RDW Plt Count MPV Prelim Diff (Auto) Neut % (Auto) Lymph % (Auto) [place] % (Auto) Eos % (Auto) Baso % (Auto) Neut # (Auto) Lymph # (Auto) [place] # (Auto) Eos # (Auto) Baso # (Auto) WBC Differential Diff Scan Differential Comment Platelet Estimate Platelet Morphology Ovalocytes Sodium 144 Potassium 3.9 D Chloride 106 Carbon Dioxide 28.5 Anion Gap 10 BUN 14 Creatinine 0.74 Estimated GFR 80 L Random Glucose 81 Calcium 8.2 L Total Bilirubin 1.2 H Direct Bilirubin 0.2 Indirect Bilirubin 1.0 H AST 35 ALT 42 Alkaline Phosphatase 144 H CK-MB (CK-2) Troponin I Total Protein 6.6 Albumin 2.3 L Peritoneal RBC 72 H Periton Nuc Cells 687 H Periton Neutrophils 7 Periton Lymphocytes 74 Peritoneal Monocytes 8 Periton Mesothelial 2 Periton Histiocytes 9 Peritoneal Tot Protein 0.6 Peritoneal Albumin 0.3 - Imaging Impressions Abdomen/Pelvis CT 08/24/18 12:02 CONCLUSION: 1. Cirrhosis with splenomegaly and moderate ascites. 2. Small umbilical hernia containing fat and ascites. No bowel herniation. 3. There are upper limits of normal, most likely reactive willem hepatis, retroperitoneal and cardiophrenic lymph nodes. 4. Body wall edema/anasarca. 5. Qvdmw-um-kmbwjkvc right and moderate to large left pleural effusions with atelectasis of the visualized lung bases. 6. Cholelithiasis without convincing evidence of cholecystitis. No duct stone or ductal dilatation seen. Chest X-Ray 08/24/18 12:03 CONCLUSION: Left greater than right basilar parenchymal consolidation and small effusions. Paracentesis Ultrasound 08/25/18 00:00 CONCLUSION: 1. Uncomplicated paracentesis. 4200 cc of clear yellow fluid were removed and sent to lab for ordered studies. Assessment and Plan (1) Hepatitis C Status: Acute Code(s): B19.20 - Unspecified viral hepatitis C without hepatic coma (2) Liver cirrhosis Status: Acute Code(s): K74.60 - Unspecified cirrhosis of liver (3) Ascites Status: Acute Code(s): R18.8 - Other ascites - Plan 08/25/2018 This is an unfortunate 62-year-old female patient [place]-speaking who has a significant medical history of hepatitis C and now with liver cirrhosis. Patient reported that she finished treatment with hepatitis C in the past however due to lost to follow-up patient cannot tell which medication she took or which gastroenterology office she went. Today patient presented with shortness of breathing due to massive abdominal enlargement accompanied by her brother who translated most of this conversation. Patient was initially diagnosed with hep C in 2010 in her abdominal enlargement started in 2011. Patient stated that 2 weeks ago they went to [facility] for pneumonia and was admitted there but her liver cirrhosis was not address. Patient reported after her discharge from the hospital for pneumonia she was only given Lasix. Patient noted that her belly was increasingly getting harder and she is having labored breathing prompted her brother to bring her to this hospital. Patient denies chills and fever no nausea and vomiting mild abdominal pain due to the abdominal distention. Patient cannot recall gastroenterology is who manages her. when asked what is the reason why she was unable to follow-up before for the last 2 years as patient stated that it all because of her insurance has . Our service is consulted for abdominal ascites with cirrhosis. Assessment Liver cirrhosis with history of hepatitis C Ascites Possible esophageal varices Possible portal hypertension Hemoglobin 11 hematocrit 32.6 INR 1.1 Liver enzymes AST 53 ALT 44 alkaline phosphatase 145 Lipase 488 Status post abdominal paracentesis 08/25/2018 revealed 4200 cc of clear yellow fluid were removed and sent to lab for ordered studies. Plan Clear liquid diet EGD colonoscopy on Thursday PPI drip We will consult IR for paracentesis -patient is status post paracentesis today 4.2 L Await microbiology results of the peritoneal fluids remove before endoscopy We will give albumin 100 g total today Antiemetics and analgesics per attending Will maximize diuretics with Lasix Aldactone and Xifaxan Will check ammonia level Liver workup Viral hep C level Monitor for active bleeding Hold anticoagulants Avoid hepatotoxins Monitor labs Patient's brother was asking about liver transplant, Dr. Dugan explained that after the patient is discharged. We will entertain liver transplant after patient is being stabilized and will follow-up as an outpatient Supportive care Further recommendations to follow Patient seen and examined by myself and Dr. Dugan and this note is written on his behalf - Attending Attestation Dr. Dugan (3) Ascites Qualifiers: Ascites type: other type Qualified Code(s): R18.8 - Other ascites
[2018-08-25] MEDS ORDERED: Nadolol 20 MG Tablet PO SCH (14:00)
[2018-08-25] MEDS: rifAXIMin 550 MG Tablet PO SCH ×2 (16:17→21:41)
[2018-08-25] MEDS: Pantoprazole Inj 80 MG in Sodium Chlor 0.9% Inj 100 ML IV.CONT SCH (16:18)
[2018-08-25] MEDS: Albumin Human 25% Inj 100 ML IV.SIG SCH ×4 (20:46→22:57)
[2018-08-26] MEDS: Pantoprazole Inj 80 MG in Sodium Chlor 0.9% Inj 100 ML IV.CONT SCH ×3 (00:49→20:03)
--- NOTE | 2018-08-26 06:55 | ECG ---
Date Performed: 08/24/2018 Time Performed: 11:08:12 PTAGE: 62 years EKG: Sinus rhythm NONSPECIFIC T-WAVE ABNORMALITY BORDERLINE ECG PREVIOUS TRACING 04/16/2017 543: Since the previous tracing, no significant change noted DOCTOR: Last Lee Interpretating Date/Time 08/26/2018 06:53:12
[2018-08-26 07:26] LABS: Baso % (Auto) 0.7 % (0.0-2.0); Eos # (Auto) 0.5 th/mm3 (0.0-0.4); Eos % (Auto) 11.9 % (0.0-4.0); Hematocrit 30.8 % (35.0-46.0); Hemoglobin 10.5 gm/dL (11.6-15.3); Lymph # (Auto) 0.6 th/mm3 (1.0-4.8); Lymph % (Auto) 16.2 % (9.0-44.0); Mean Corpuscular Hemoglobin 30.1 pg (27.0-34.0); Mean Corpuscular Volume 88.7 fL (80.0-100.0); Mean Platelet Volume 8.4 fL (7.0-11.0); Mono # (Auto) 0.4 th/mm3 (0.0-0.9); Mono % (Auto) 10.4 % (0.0-8.0); Neut # (Auto) 2.4 th/mm3 (1.8-7.7); Neut % (Auto) 60.8 % (16.0-70.0); Platelet Count 89 th/mm3 (150-450); Red Blood Count 3.48 mil/mm3 (4.00-5.30); Red Cell Distribution Width 15.3 % (11.6-17.2)
[2018-08-26 07:51] LABS: Alanine Aminotransferase 29 U/L (10-53); Albumin 3.5 g/dL (3.4-5.0); Alkaline Phosphatase 101 U/L (45-117); Anion Gap 6 meq/L (5-15); Aspartate Aminotransferase 26 U/L (15-37); Blood Urea Nitrogen 14 mg/dL (7-18); Calcium 7.8 mg/dL (8.5-10.1); Carbon Dioxide 32.6 meq/L (21.0-32.0); Chloride 106 meq/L (98-107); Glomerular Filtration Rate 76 mL/min (>89); Glucose,Random 90 mg/dL (74-106); Lipase 265 U/L (73-393); Magnesium 1.6 mg/dL (1.5-2.5); Potassium 3.6 meq/L (3.5-5.1); Sodium 145 meq/L (136-145); Total Protein 6.5 g/dL (6.4-8.2)
[2018-08-26 07:53] LABS: Platelet Morphology Normal (Normal)
[2018-08-26] MEDS: Furosemide 20 MG Tablet PO SCH (09:13)
[2018-08-26] MEDS: rifAXIMin 550 MG Tablet PO SCH ×2 (09:14→21:33)
[2018-08-26] MEDS: Gabapentin 300 MG Capsule PO SCH (09:14)
[2018-08-26] MEDS: Ferrous Sulfate 325 MG Tablet PO SCH (09:14)
[2018-08-26] MEDS: Senna/Docusate Sodium 8.6/50 MG Tablet PO SCH ×2 (09:14→21:33)
[2018-08-26] MEDS: Amiodarone 200 MG Tablet PO SCH (11:08)
--- NOTE | 2018-08-26 15:22 | P.PNIM ---
Subjective Interval history: Discussed with RN. Patient is bradycardic around 45 this morning. Amiodarone was held. Telemetry reviewed, she remains in sinus bradycardia. She denies any symptoms such as lightheadedness or chest pain. She feels well overall. Physical Exam Vital signs: Vital Signs 08/25/18 16:00 08/25/18 19:10 08/25/18 20:02 Temperature 97.1 F L 97.0 F L Pulse Rate 73 62 55 L Respiratory Rate 20 18 Blood Pressure 152/70 H 145/64 H Pulse Oximetry 93 L 97 08/25/18 21:05 08/25/18 23:52 08/26/18 00:00 Temperature 97.9 F Pulse Rate 55 L 55 L 58 L Respiratory Rate 19 18 Blood Pressure 134/68 Pulse Oximetry 92 L 98 08/26/18 04:00 08/26/18 08:00 08/26/18 09:01 Temperature 98.1 F 97.9 F Pulse Rate 60 51 L 62 Respiratory Rate 18 18 18 Blood Pressure 133/60 149/63 H Pulse Oximetry 96 100 95 08/26/18 11:45 Temperature 97.8 F Pulse Rate 53 L Respiratory Rate 17 Blood Pressure 157/66 H Pulse Oximetry 96 Intake & Output 08/25/18 08/26/18 08/26/18 18:59 06:59 18:59 Intake Total 480 / 480 510 / 510 90 / 90 Balance 480 / 480 510 / 510 90 / 90 Weight 94.1 kg Intake: IV 510 / 510 90 / 90 Protonix Inj 80 MG In NS Inj 10 / 10 90 / 90 100 ML @ 10 mls/hr IV.CONT Q10H [facility] Rx#:[id number] Flexbumin 25% Inj 100 ML @ 60 400 / 400 mls/hr IV.SIG Q100M [facility]SEL[facility] Rx#: [id number] Rocephin Inj 2,000 MG In NS Inj 100 / 100 100 ML @ 200 mls/hr IV.SIG Q24H ROSELIA Rx#:[id number] Oral 480 / 480 Other: # Voids 5 2 Date of Last Bowel Movement 08/24/18 # Bowel Movements 0 Narrative: GENERAL: Obese female in no acute distress CARDIOVASCULAR: Normal rate and regular rhythm without murmurs, gallops, or rubs. RESPIRATORY: Good respiratory efforts. Bibasilar crackles. GASTROINTESTINAL: Abdomen is obese with ascites and fluid wave. MUSCULOSKELETAL: 2+ bilateral lower extremity edema NEURO: Alert & Oriented x4 to person, place, time, situation. Moves all ext x4 PSYCH: Appropriate mood and affect. Results Labs CBC & Chem 7: 08/26/18 06:34 08/26/18 06:34 Assessment and Plan (1) Hepatitis C: Code(s): B19.20 - Unspecified viral hepatitis C without hepatic coma Status: Acute (2) Liver cirrhosis: Code(s): K74.60 - Unspecified cirrhosis of liver Status: Acute (3) Ascites: Code(s): R18.8 - Other ascites Status: Acute Plan 62 year old female with past history of hep C w/ cirrhosis presenting with SOB found to have large abdominal ascites. Apparently patient was previously seen at [facility] but somehow was lost to follow-up. Hep C, cirrhosis with ascites. Shortness of breath. - We will continue with diuresis including Lasix IV, spironolactone, Xifaxan. She is bradycardic and cannot tolerate propranolol at this time. -Status post paracentesis. 4 L removed. Fluid studies pending. - Monitor I&O - daily BMP -Viral hep C levels pending -GI planning for EGD/colonoscopy tomorrow. History of CAD and heart valve replacement/ Bradycardia: - Continue to HOLD plavix. Plan to resume after EGD and colonoscopy tomorrow. -Continue to hold amlodipine given spironolactone and increased dose of Lasix. - No chest pain. Cardiac enzymes negative. -We will continue to hold Amiodarone at this time. It is unclear if the patient was taking this medication outpatient. code: Full dvt ppx: SCD, chemoprophylaxis contraindicated given thrombocytopenia / coagulopathy from cirrhosis Progress Note: Quality VTE Deep Vein Thrombosis/Pulmonary Embolism Present on Admission: No _ (1) Hepatitis C Qualifiers: Viral hepatitis chronicity: Hepatic coma status: (2) Liver cirrhosis Qualifiers: Hepatic cirrhosis type: Ascites presence: (3) Ascites Qualifiers: Ascites type: other type Qualified Code(s): R18.8 - Other ascites
--- NOTE | 2018-08-26 15:35 | P.DCO ---
Diagnosis (1) Hepatitis C: Status: Acute (2) Liver cirrhosis: Status: Acute (3) Ascites: Status: Acute Physical Therapy Order: Evaluate and treat, Improve ambulation and Strength and gait training Home Health Nursing Order: Medical education and Signs/symptoms of disease process Case Management Consult Case Management Consult-Home Health: Yes I have seen patient Megan العلي on 08/26/18. My clinical findings support the need for the requested home health care services because: Deconditioned with increased weakness, Limited ability to care for self and High risk of falls I certify that my clinical findings support that this patient is homebound because: Unsteady gait/balance and Unsafe to leave home unassisted _ (1) Hepatitis C Qualifiers: Viral hepatitis chronicity: Hepatic coma status: (2) Liver cirrhosis Qualifiers: Hepatic cirrhosis type: Ascites presence: (3) Ascites Qualifiers: Ascites type: other type Qualified Code(s): R18.8 - Other ascites
--- NOTE | 2018-08-26 20:44 | P.PNGI ---
Subjective Interval history: Patient awake and alert Sitting up at bedside Family present Moderate amount of ascites noted Patient denies abdominal discomfort or nausea vomiting No BM today Physical Exam Vital signs: Vital Signs 08/25/18 21:05 08/25/18 23:52 08/26/18 00:00 Temperature 97.9 F Pulse Rate 55 L 55 L 58 L Respiratory Rate 19 18 Blood Pressure 134/68 Pulse Oximetry 92 L 98 08/26/18 04:00 08/26/18 08:00 08/26/18 09:01 Temperature 98.1 F 97.9 F Pulse Rate 60 51 L 62 Respiratory Rate 18 18 18 Blood Pressure 133/60 149/63 H Pulse Oximetry 96 100 95 08/26/18 11:45 08/26/18 16:30 Temperature 97.8 F 98.1 F Pulse Rate 53 L 50 L Respiratory Rate 17 17 Blood Pressure 157/66 H 136/70 Pulse Oximetry 96 96 Intake & Output 08/26/18 08/26/18 08/27/18 06:59 18:59 06:59 Intake Total 510 / 510 1030 / 1030 95 / 95 Balance 510 / 510 1030 / 1030 95 / 95 Weight 94.1 kg Intake: IV 510 / 510 90 / 90 95 / 95 Protonix Inj 80 MG In NS Inj 10 / 10 90 / 90 95 / 95 100 ML @ 10 mls/hr IV.CONT Q10H [facility] Rx#:[id number] Flexbumin 25% Inj 100 ML @ 60 400 / 400 mls/hr IV.SIG Q100M [facility]SEL[facility] Rx#: [id number] Rocephin Inj 2,000 MG In NS Inj 100 / 100 100 ML @ 200 mls/hr IV.SIG Q24H ROSEL[facility] Rx#:[id number] Oral 940 / 940 Other: # Voids 2 8 # Bowel Movements 1 - Constitutional no acute distress, chronically ill appearing, cooperative - Routine HEENT Exam Head: Present: normocephalic - Routine Respiratory Exam Present: CTA bilaterally - Routine Abdominal Exam Present: soft, normoactive bowel sounds, distended. Absent: tenderness - Routine Extremities Exam Present: edema Comments: Bilateral lower extremity 2+ edema - Routine Skin Exam Present: dry, warm - Routine Neurological Exam Present: oriented X3 - Routine Psychiatric Exam Present: normal affect, cooperative Results - Labs CBC & Chem 7: 08/26/18 06:34 08/26/18 06:34 Laboratory Results - last 24 hr 08/26/18 08/26/18 06:34 06:34 WBC 4.0 RBC 3.48 L Hgb 10.5 L Hct 30.8 L MCV 88.7 MCH 30.1 MCHC 34.0 RDW 15.3 Plt Count 89 L MPV 8.4 Prelim Diff (Auto) Slide review pending Neut % (Auto) 60.8 Lymph % (Auto) 16.2 [place] % (Auto) 10.4 H Eos % (Auto) 11.9 H Baso % (Auto) 0.7 Neut # (Auto) 2.4 Lymph # (Auto) 0.6 L [place] # (Auto) 0.4 Eos # (Auto) 0.5 H Baso # (Auto) 0.0 WBC Differential . Diff Scan Auto diff confirmed Differential Comment . Platelet Estimate Low L Platelet Morphology Normal Sodium 145 Potassium 3.6 Chloride 106 Carbon Dioxide 32.6 H Anion Gap 6 BUN 14 Creatinine 0.77 Estimated GFR 76 L Random Glucose 90 Calcium 7.8 L Magnesium 1.6 Total Bilirubin 1.0 Direct Bilirubin 0.3 H Indirect Bilirubin 0.7 AST 26 ALT 29 Alkaline Phosphatase 101 Total Protein 6.5 Albumin 3.5 D Lipase 265 Assessment and Plan (1) Hepatitis C Status: Acute Code(s): B19.20 - Unspecified viral hepatitis C without hepatic coma (2) Liver cirrhosis Status: Acute Code(s): K74.60 - Unspecified cirrhosis of liver (3) Ascites Status: Acute Code(s): R18.8 - Other ascites - Plan 08/25/2018 This is an unfortunate 62-year-old female patient Maltese-speaking who has a significant medical history of hepatitis C and now with liver cirrhosis. Patient reported that she finished treatment with hepatitis C in the past however due to lost to follow-up patient cannot tell which medication she took or which gastroenterology office she went. Today patient presented with shortness of breathing due to massive abdominal enlargement accompanied by her brother who translated most of this conversation. Patient was initially diagnosed with hep C in 2010 in her abdominal enlargement started in 2011. Patient stated that 2 weeks ago they went to [facility] for pneumonia and was admitted there but her liver cirrhosis was not address. Patient reported after her discharge from the hospital for pneumonia she was only given Lasix. Patient noted that her belly was increasingly getting harder and she is having labored breathing prompted her brother to bring her to this hospital. Patient denies chills and fever no nausea and vomiting mild abdominal pain due to the abdominal distention. Patient cannot recall gastroenterology is who manages her. when asked what is the reason why she was unable to follow-up before for the last 2 years as patient stated that it all because of her insurance has . Our service is consulted for abdominal ascites with cirrhosis. Assessment Liver cirrhosis with history of hepatitis C Ascites Possible esophageal varices Possible portal hypertension Hemoglobin 11 hematocrit 32.6 INR 1.1 Liver enzymes AST 53 ALT 44 alkaline phosphatase 145 Lipase 488 Status post abdominal paracentesis 08/25/2018 revealed 4200 cc of clear yellow fluid were removed and sent to lab for ordered studies. 08/26/2018 Liver cirrhosis with history of hep C Ascites Possible esophageal varices with portal hypertension Moderate amount of abdominal ascites with 2+ pedal edema WBC 4.0 hemoglobin 10.5 hematocrit 30.8 platelet count 80 Total bilirubin 1.0 AST 26 ALT 29 alk phos 101 ammonia 46 Peritoneal neutrophils 7 lymphocytes 74 monocytes 8 Plan Clear liquid diet N.p.o. after midnight Obtain consent for EGD Continue pantoprazole drip Continue Rocephin-SBP protocol Lactulose 30 mL's p.o. daily Furosemide 80 mg p.o. daily Spironolactone 100 mg p.o. daily Xifaxan 550 mg every 12 Anti-medics as per attending Avoid hepatotoxins Monitor for active bleeding Liver immunology pending HCV RNA genotype pending Supportive care Further recommendations to follow Patient seen and examined by myself and Dr. Dugan and this note is written on his behalf - Attending Attestation Dr. Dugan (3) Ascites Qualifiers: Ascites type: other type Qualified Code(s): R18.8 - Other ascites
[2018-08-27] MEDS: Pantoprazole Inj 80 MG in Sodium Chlor 0.9% Inj 100 ML IV.CONT SCH ×2 (06:39→07:21)
[2018-08-27] MEDS ORDERED: Spironolactone 50 MG Tablet PO SCH (09:00)
[2018-08-27] MEDS ORDERED: Metoprolol Tartrate 25 MG Tablet PO ONE (10:30)
[2018-08-27] MEDS ORDERED: Chlorhexidine Gluconate 2% 1 Pack (2 Cloths) TOPICAL ONE (10:30)
[2018-08-27] MEDS ORDERED: Sodium Chlor 0.9% Inj 500 ML IV.CONT ONE (10:30)
[2018-08-27] MEDS ORDERED: Lidocaine PF 1% Inj 5 ML Syringe OTHER ONE (10:39)
--- NOTE | 2018-08-27 11:26 | GIPROC ---
[facility] [address] [facility]. [facility], [address] EGD PROCEDURE REPORT EXAM DATE: 08/27/2018 PATIENT NAME: Megan العلي MR #: [id number] BIRTHDATE: 1955 ATTENDING: Deshawn Dugan MD ORDER #: [id number] PROVINCE ARCHIVIST: Marylu Katz and Oanh Mcintyre STATUS: inpatient INDICATIONS: The patient is a 62 yr old female here for an EGD due to Cirrhosis PROCEDURE PERFORMED: EGD w/ band ligation of varices MEDICATIONS: Per Anesthesia and None. TOPICAL ANESTHETIC: none CONSENT: The patient understands the risks and benefits of the procedure and understands that these risks include, but are not limited to: sedation, allergic reaction, infection, perforation and/or bleeding. Alternative means of evaluation and treatment include, among others: physical exam, x-rays, and/or surgical intervention. The patient elects to proceed with this endoscopic procedure. medical equipment was checked for proper function. Hand hygiene and appropriate measures for infection prevention was taken. After the risks, benefits and alternatives of the procedure were thoroughly explained, Informed consent was verified, confirmed and timeout was successfully executed by the treatment team. The patient was anesthetized with topical anesthesia and the Pentax EG-[id number] endoscope was introduced through the mouth and advanced to the second portion of the duodenum. Retroflexed views revealed a hiatal hernia The gastroscope was then slowly withdrawn and removed. ESOPHAGUS: There were 3 columns of large varices in the distal esophagus. There was evidence of prior scarring. STOMACH: Mild portal hypertensive gastropathy was found. DUODENUM: The duodenal mucosa appeared normal in the entire duodenum. ADVERSE EVENTS: There were no complications. IMPRESSIONS: 1. Portal hypertensive gastropathy was found 2. Normal duodenal mucosa in the entire duodenum 3. Retroflexed views revealed a hiatal hernia RECOMMENDATIONS: 1. Start PPI 2. Nadolol PATIENT CONDITION: stable DISPOSITION: Inpatient REPEAT EXAM: Return 4 weeks EGD Deshawn Dugan MD eSigned: Deshawn Dugan MD 08/27/2018 11:26 AM cc: PATIENT NAME: Megan العلي MR#: [id number]
[2018-08-27] MEDS: Furosemide 80 MG Tablet PO SCH (12:42)
[2018-08-27] MEDS: rifAXIMin 550 MG Tablet PO SCH ×2 (12:42→20:47)
[2018-08-27] MEDS: Ferrous Sulfate 325 MG Tablet PO SCH (12:42)
[2018-08-27] MEDS: Gabapentin 300 MG Capsule PO SCH (12:43)
[2018-08-27] MEDS: Senna/Docusate Sodium 8.6/50 MG Tablet PO SCH ×2 (12:43→20:47)
--- NOTE | 2018-08-27 13:55 | P.PNIM ---
Subjective Interval history: Patient seen after EGD. She reports midepigastric pain. EGD found large varices status post banding. Physical Exam Vital signs: Vital Signs 08/26/18 16:00 08/26/18 16:30 08/26/18 20:00 Temperature 98.1 F Pulse Rate 48 L 50 L 58 L Respiratory Rate 17 Blood Pressure 136/70 Pulse Oximetry 96 08/26/18 20:35 08/26/18 23:45 08/27/18 00:00 Temperature 98.5 F 98.3 F Pulse Rate 53 L 55 L 51 L Respiratory Rate 17 17 Blood Pressure 141/64 H 138/60 Pulse Oximetry 95 97 08/27/18 04:00 08/27/18 04:52 08/27/18 08:00 Temperature 97.4 F L 97.5 F L Pulse Rate 55 L 52 L 55 L Respiratory Rate 17 18 Blood Pressure 118/55 L 140/63 Pulse Oximetry 97 98 08/27/18 09:50 08/27/18 11:27 Temperature 97.9 F Pulse Rate 59 L Respiratory Rate 20 Blood Pressure 151/69 H Pulse Oximetry 98 93 L Intake & Output 08/26/18 08/27/18 08/27/18 18:59 06:59 18:59 Intake Total 1030 / 1030 415 / 415 Balance 1030 / 1030 415 / 415 Weight 93.6 kg Intake: IV 90 / 90 295 / 295 Protonix Inj 80 MG In NS Inj 90 / 90 195 / 195 100 ML @ 10 mls/hr IV.CONT Q10H [facility] Rx#:[id number] Rocephin Inj 2,000 MG In NS Inj 100 / 100 100 ML @ 200 mls/hr IV.SIG Q24H [facility]SEL[facility] Rx#:[id number] Oral 940 / 940 120 / 120 Other: # Voids 8 4 Date of Last Bowel Movement 08/26/18 08/26/18 # Bowel Movements 1 0 Narrative: GENERAL: Obese female in no acute distress CARDIOVASCULAR: Normal rate and regular rhythm without murmurs, gallops, or rubs. RESPIRATORY: Good respiratory efforts. Bibasilar crackles. GASTROINTESTINAL: Abdomen is obese with ascites and fluid wave. Tender to palpation in the midepigastric region MUSCULOSKELETAL: 2+ bilateral lower extremity edema NEURO: Alert & Oriented x4 to person, place, time, situation. Moves all ext x4 PSYCH: Appropriate mood and affect. Results Labs CBC & Chem 7: 08/26/18 06:34 08/26/18 06:34 Assessment and Plan (1) Hepatitis C: Code(s): B19.20 - Unspecified viral hepatitis C without hepatic coma Status: Acute (2) Liver cirrhosis: Code(s): K74.60 - Unspecified cirrhosis of liver Status: Acute (3) Ascites: Code(s): R18.8 - Other ascites Status: Acute Plan 62 year old female with past history of hep C w/ cirrhosis presenting with SOB found to have large abdominal ascites. Apparently patient was previously seen at [facility] but somehow was lost to follow-up. Hep C, cirrhosis with ascites. Shortness of breath. - We will continue with diuresis including Lasix, spironolactone, Xifaxan. She is bradycardic and cannot tolerate propranolol at this time. - Status post paracentesis. 4 L removed. Fluid studies pending. - On Protonix drip per GI - Monitor I&O - daily BMP - Viral hep C levels pending - Status post EGD which revealed large varices, status post banding by GI. - Strict I/O. -May need repeat paracentesis in the next couple of days. History of CAD and heart valve replacement/ Bradycardia: - Continue to HOLD plavix today status post EGD. Plan to resume tomorrow. - Continue to hold amlodipine given spironolactone and increased dose of Lasix. - No chest pain. Cardiac enzymes negative. - We will continue to hold Amiodarone at this time. It is unclear if the patient was taking this medication outpatient. code: Full dvt ppx: SCD, chemoprophylaxis contraindicated given thrombocytopenia / coagulopathy from cirrhosis Progress Note: Quality VTE Deep Vein Thrombosis/Pulmonary Embolism Present on Admission: No _ (1) Hepatitis C Qualifiers: Viral hepatitis chronicity: Hepatic coma status: (2) Liver cirrhosis Qualifiers: Hepatic cirrhosis type: Ascites presence: (3) Ascites Qualifiers: Ascites type: other type Qualified Code(s): R18.8 - Other ascites
[2018-08-27] MEDS: Morphine Sulfate Inj 2 MG/ML Vial IV.PUSH PRN ×2 (14:24→20:47)
[2018-08-27 18:28] LABS: Baso % (Auto) 0.6 % (0.0-2.0); Eos # (Auto) 0.5 th/mm3 (0.0-0.4); Eos % (Auto) 14.5 % (0.0-4.0); Hematocrit 32.7 % (35.0-46.0); Lymph # (Auto) 0.5 th/mm3 (1.0-4.8); Lymph % (Auto) 16.9 % (9.0-44.0); Mean Corpuscular HGB Conc 33.5 % (32.0-36.0); Mean Corpuscular Hemoglobin 30.1 pg (27.0-34.0); Mean Corpuscular Volume 89.9 fL (80.0-100.0); Mean Platelet Volume 8.3 fL (7.0-11.0); Mono # (Auto) 0.4 th/mm3 (0.0-0.9); Mono % (Auto) 11.7 % (0.0-8.0); Neut # (Auto) 1.8 th/mm3 (1.8-7.7); Neut % (Auto) 56.3 % (16.0-70.0); Platelet Count 95 th/mm3 (150-450); Red Blood Count 3.64 mil/mm3 (4.00-5.30); Red Cell Distribution Width 15.6 % (11.6-17.2); White Blood Count 3.3 th/mm3 (4.0-11.0)
[2018-08-27 19:06] LABS: Platelet Morphology Normal (Normal)
[2018-08-27 19:13] LABS: Alanine Aminotransferase 30 U/L (10-53); Albumin 2.9 g/dL (3.4-5.0); Alkaline Phosphatase 102 U/L (45-117); Anion Gap 6 meq/L (5-15); Aspartate Aminotransferase 26 U/L (15-37); Blood Urea Nitrogen 9 mg/dL (7-18); Calcium 7.9 mg/dL (8.5-10.1); Chloride 105 meq/L (98-107); Glomerular Filtration Rate 85 mL/min (>89); Glucose,Random 87 mg/dL (74-106); Sodium 145 meq/L (136-145)
[2018-08-27] MEDS: Pantoprazole Inj 40 MG Vial IV.PUSH SCH (20:42)
[2018-08-27] MEDS: Ciprofloxacin 500 MG Tablet PO SCH (20:46)
[2018-08-28] MEDS ORDERED: Nadolol 40 MG Tablet PO SCH (09:00)
[2018-08-28] MEDS: Furosemide 80 MG Tablet PO SCH (09:29)
[2018-08-28] MEDS: Ferrous Sulfate 325 MG Tablet PO SCH (09:29)
[2018-08-28] MEDS: Gabapentin 300 MG Capsule PO SCH (09:29)
[2018-08-28] MEDS: rifAXIMin 550 MG Tablet PO SCH ×2 (09:29→20:04)
[2018-08-28] MEDS: Pantoprazole Inj 40 MG Vial IV.PUSH SCH ×2 (09:30→20:06)
[2018-08-28 11:05] LABS: Hematocrit 35.7 % (35.0-46.0); Hemoglobin 11.8 gm/dL (11.6-15.3); Mean Corpuscular Hemoglobin 29.8 pg (27.0-34.0); Mean Corpuscular Volume 90.4 fL (80.0-100.0); Mean Platelet Volume 8.1 fL (7.0-11.0); Platelet Count 98 th/mm3 (150-450); Red Blood Count 3.95 mil/mm3 (4.00-5.30); Red Cell Distribution Width 15.7 % (11.6-17.2); White Blood Count 3.7 th/mm3 (4.0-11.0)
[2018-08-28 11:07] LABS: INR 1.2 Ratio; Prothrombin Time 12.4 sec (9.8-11.6)
[2018-08-28 11:52] LABS: Calcium 7.7 mg/dL (8.5-10.1); Carbon Dioxide 32.6 meq/L (21.0-32.0); Total Protein 6.7 g/dL (6.4-8.2)
[2018-08-28 12:09] LABS: Potassium 4.1 meq/L (3.5-5.1)
--- NOTE | 2018-08-28 13:14 | P.PNIM ---
Subjective Interval history: Patient reports she is feeling better today. She is urinating a lot. She wants to eat. Physical Exam Vital signs: Vital Signs 08/27/18 16:00 08/27/18 20:00 08/28/18 00:00 Temperature 97.8 F 98.1 F 98.2 F Pulse Rate 52 L 55 L 57 L Respiratory Rate 18 21 20 Blood Pressure 165/73 H 158/57 H 153/95 H Pulse Oximetry 96 97 97 08/28/18 04:00 08/28/18 08:00 Temperature 98.0 F 97.8 F Pulse Rate 58 L 61 Respiratory Rate 20 18 Blood Pressure 175/70 H 115/52 L Pulse Oximetry 96 91 L Intake & Output 08/27/18 08/28/18 08/28/18 18:59 06:59 18:59 Intake Total 600 / 600 200 / 200 Balance 600 / 600 200 / 200 Weight 92.4 kg Intake: IV 200 / 200 Protonix Inj 80 MG In NS Inj 100 / 100 100 ML @ 10 mls/hr IV.CONT Q10H [facility] Rx#:[id number] Rocephin Inj 2,000 MG In NS Inj 100 / 100 100 ML @ 200 mls/hr IV.SIG Q24H ROSELIA Rx#:[id number] Oral 500 / 500 Anesthesia Amount 100 / 100 Other: # Voids 3 Date of Last Bowel Movement 08/26/18 Narrative: GENERAL: Obese female in no acute distress CARDIOVASCULAR: Normal rate and regular rhythm without murmurs, gallops, or rubs. RESPIRATORY: Good respiratory efforts. Bibasilar crackles. GASTROINTESTINAL: Abdomen is obese but soft. Not as tense. MUSCULOSKELETAL: 2+ bilateral lower extremity edema NEURO: Alert & Oriented x4 to person, place, time, situation. Moves all ext x4 PSYCH: Appropriate mood and affect. Results Labs CBC & Chem 7: 08/28/18 09:05 08/28/18 09:05 Assessment and Plan (1) Hepatitis C: Code(s): B19.20 - Unspecified viral hepatitis C without hepatic coma Status: Acute (2) Liver cirrhosis: Code(s): K74.60 - Unspecified cirrhosis of liver Status: Acute (3) Ascites: Code(s): R18.8 - Other ascites Status: Acute Plan 62 year old female with past history of hep C w/ cirrhosis presenting with SOB found to have large abdominal ascites. Apparently patient was previously seen at [facility] but somehow was lost to follow-up. Hep C, cirrhosis with ascites. Shortness of breath. - We will continue with diuresis including Lasix, spironolactone, Xifaxan. She is bradycardic and cannot tolerate beta blockers at this time. - Status post paracentesis. 4 L removed. Fluid studies pending. - On Protonix drip per GI - Monitor I&O - daily BMP - Viral hep C levels pending - Status post EGD which revealed large varices, status post banding by GI. - Strict I/O. - Continue IV diuretics. Continue Rocephin for SBP prophylaxis. Advance diet as tolerated. History of CAD and heart valve replacement/ Bradycardia: - Resume Plavix in AM if ok with GI. - Continue to hold amlodipine given spironolactone and increased dose of Lasix. - No chest pain. Cardiac enzymes negative. - We will continue to hold Amiodarone at this time. It is unclear if the patient was taking this medication outpatient. code: Full dvt ppx: SCD, chemoprophylaxis contraindicated given thrombocytopenia / coagulopathy from cirrhosis Progress Note: Quality VTE Deep Vein Thrombosis/Pulmonary Embolism Present on Admission: No _ (1) Hepatitis C Qualifiers: Viral hepatitis chronicity: Hepatic coma status: (2) Liver cirrhosis Qualifiers: Hepatic cirrhosis type: Ascites presence: (3) Ascites Qualifiers: Ascites type: other type Qualified Code(s): R18.8 - Other ascites
--- NOTE | 2018-08-28 17:57 | P.PNGI ---
Subjective Interval history: Patient seen and examined. Sitting up in chair. No complaints. Feels hungry. Abdomen distended but nontender. <Zaida Castillo C - Last Filed: 08/28/18 17:50> Physical Exam Vital signs: Vital Signs 08/27/18 20:00 08/28/18 00:00 08/28/18 04:00 Temperature 98.1 F 98.2 F 98.0 F Pulse Rate 55 L 57 L 58 L Respiratory Rate 21 20 20 Blood Pressure 158/57 H 153/95 H 175/70 H Pulse Oximetry 97 97 96 08/28/18 08:00 Temperature 97.8 F Pulse Rate 61 Respiratory Rate 18 Blood Pressure 115/52 L Pulse Oximetry 91 L Intake & Output 08/27/18 08/28/18 08/28/18 18:59 06:59 18:59 Intake Total 600 / 600 200 / 200 Balance 600 / 600 200 / 200 Weight 92.4 kg Intake: IV 200 / 200 Protonix Inj 80 MG In NS Inj 100 / 100 100 ML @ 10 mls/hr IV.CONT Q10H [facility] Rx#:[id number] Rocephin Inj 2,000 MG In NS Inj 100 / 100 100 ML @ 200 mls/hr IV.SIG Q24H [facility] Rx#:[id number] Oral 500 / 500 Anesthesia Amount 100 / 100 Other: # Voids 3 Date of Last Bowel Movement 08/26/18 08/26/18 <Zaida Castillo - Last Filed: 08/28/18 17:50> Vital signs: Vital Signs 08/28/18 00:00 08/28/18 04:00 08/28/18 08:00 Temperature 98.2 F 98.0 F 97.8 F Pulse Rate 57 L 58 L 58 L Respiratory Rate 20 20 18 Blood Pressure 153/95 H 175/70 H 115/52 L Pulse Oximetry 97 96 91 L 08/28/18 12:00 08/28/18 16:00 08/28/18 20:00 Temperature 98.0 F 98.3 F 98.3 F Pulse Rate 61 46 L 68 Respiratory Rate 19 19 16 Blood Pressure 160/75 H 152/51 H 142/66 H Pulse Oximetry 90 L 98 96 Intake & Output 08/28/18 08/28/18 08/29/18 06:59 18:59 06:59 Intake Total 200 / 200 100 / 100 Balance 200 / 200 100 / 100 Weight 92.4 kg Intake: IV 200 / 200 100 / 100 Protonix Inj 80 MG In NS Inj 100 / 100 100 ML @ 10 mls/hr IV.CONT Q10H COUNT INCLUDES THE [facility] Rx#:[id number] Rocephin Inj 2,000 MG In NS Inj 100 / 100 100 / 100 100 ML @ 200 mls/hr IV.SIG Q24H [facility] Rx#:[id number] Other: # Voids 2 Date of Last Bowel Movement 08/26/18 08/26/18 <Jagjit Quintero E - Last Filed: 08/28/18 22:02> Results - Labs CBC & Chem 7: 08/28/18 09:05 08/28/18 09:05 Laboratory Results - last 24 hr 08/27/18 08/27/18 08/28/18 17:27 17:27 09:05 WBC 3.3 L 3.7 L RBC 3.64 L 3.95 L Hgb 11.0 L 11.8 Hct 32.7 L 35.7 MCV 89.9 90.4 MCH 30.1 29.8 MCHC 33.5 33.0 RDW 15.6 15.7 Plt Count 95 L 98 L MPV 8.3 8.1 Prelim Diff (Auto) Slide review pending Neut % (Auto) 56.3 Lymph % (Auto) 16.9 [place] % (Auto) 11.7 H Eos % (Auto) 14.5 H Baso % (Auto) 0.6 Neut # (Auto) 1.8 Lymph # (Auto) 0.5 L [place] # (Auto) 0.4 Eos # (Auto) 0.5 H Baso # (Auto) 0.0 WBC Differential . Diff Scan Auto diff confirmed Differential Comment . Platelet Estimate Low L Platelet Morphology Normal PT INR Sodium 145 Potassium 3.0 L Chloride 105 Carbon Dioxide 34.0 H Anion Gap 6 BUN 9 Creatinine 0.70 Estimated GFR 85 L Random Glucose 87 Calcium 7.9 L Total Bilirubin 1.0 Direct Bilirubin Indirect Bilirubin AST 26 ALT 30 Alkaline Phosphatase 102 Total Protein 6.0 L Albumin 2.9 L D 08/28/18 08/28/18 09:05 09:45 WBC RBC Hgb Hct MCV MCH MCHC RDW Plt Count MPV Prelim Diff (Auto) Neut % (Auto) Lymph % (Auto) [place] % (Auto) Eos % (Auto) Baso % (Auto) Neut # (Auto) Lymph # (Auto) [place] # (Auto) Eos # (Auto) Baso # (Auto) WBC Differential Diff Scan Differential Comment Platelet Estimate Platelet Morphology PT 12.4 H INR 1.2 Sodium 142 Potassium 4.1 D Chloride 103 Carbon Dioxide 32.6 H Anion Gap 6 BUN 8 Creatinine 0.75 Estimated GFR 79 L Random Glucose 78 Calcium 7.7 L Total Bilirubin 1.0 Direct Bilirubin 0.1 Indirect Bilirubin 0.9 H AST 64 H ALT 33 Alkaline Phosphatase 109 Total Protein 6.7 D Albumin 3.0 L <Zaida Castillo - Last Filed: 08/28/18 17:50> - Labs CBC & Chem 7: 08/28/18 09:05 08/28/18 09:05 Laboratory Results - last 24 hr 08/28/18 08/28/18 08/28/18 09:05 09:05 09:45 WBC 3.7 L RBC 3.95 L Hgb 11.8 Hct 35.7 MCV 90.4 MCH 29.8 MCHC 33.0 RDW 15.7 Plt Count 98 L MPV 8.1 PT 12.4 H INR 1.2 Sodium 142 Potassium 4.1 D Chloride 103 Carbon Dioxide 32.6 H Anion Gap 6 BUN 8 Creatinine 0.75 Estimated GFR 79 L Random Glucose 78 Calcium 7.7 L Total Bilirubin 1.0 Direct Bilirubin 0.1 Indirect Bilirubin 0.9 H AST 64 H ALT 33 Alkaline Phosphatase 109 Total Protein 6.7 D Albumin 3.0 L <Jagjit Quintero - Last Filed: 08/28/18 22:02> Assessment and Plan (1) Hepatitis C Status: Acute Code(s): B19.20 - Unspecified viral hepatitis C without hepatic coma (2) Liver cirrhosis Status: Acute Code(s): K74.60 - Unspecified cirrhosis of liver (3) Ascites Status: Acute Code(s): R18.8 - Other ascites - Plan 08/25/2018 This is an unfortunate 62-year-old female patient [place] Leonean-speaking who has a significant medical history of hepatitis C and now with liver cirrhosis. Patient reported that she finished treatment with hepatitis C in the past however due to lost to follow-up patient cannot tell which medication she took or which gastroenterology office she went. Today patient presented with shortness of breathing due to massive abdominal enlargement accompanied by her brother who translated most of this conversation. Patient was initially diagnosed with hep C in 2010 in her abdominal enlargement started in 2011. Patient stated that 2 weeks ago they went to [facility] for pneumonia and was admitted there but her liver cirrhosis was not address. Patient reported after her discharge from the hospital for pneumonia she was only given Lasix. Patient noted that her belly was increasingly getting harder and she is having labored breathing prompted her brother to bring her to this hospital. Patient denies chills and fever no nausea and vomiting mild abdominal pain due to the abdominal distention. Patient cannot recall gastroenterology is who manages her. when asked what is the reason why she was unable to follow-up before for the last 2 years as patient stated that it all because of her insurance has . Our service is consulted for abdominal ascites with cirrhosis. Assessment Liver cirrhosis with history of hepatitis C Ascites Possible esophageal varices Possible portal hypertension Hemoglobin 11 hematocrit 32.6 INR 1.1 Liver enzymes AST 53 ALT 44 alkaline phosphatase 145 Lipase 488 Status post abdominal paracentesis 08/25/2018 revealed 4200 cc of clear yellow fluid were removed and sent to lab for ordered studies. 08/26/2018 Liver cirrhosis with history of hep C Ascites Possible esophageal varices with portal hypertension Moderate amount of abdominal ascites with 2+ pedal edema WBC 4.0 hemoglobin 10.5 hematocrit 30.8 platelet count 80 Total bilirubin 1.0 AST 26 ALT 29 alk phos 101 ammonia 46 Peritoneal neutrophils 7 lymphocytes 74 monocytes 8 Plan Clear liquid diet N.p.o. after midnight Obtain consent for EGD Continue pantoprazole drip Continue Rocephin-SBP protocol Lactulose 30 mL's p.o. daily Furosemide 80 mg p.o. daily Spironolactone 100 mg p.o. daily Xifaxan 550 mg every 12 Anti-medics as per attending Avoid hepatotoxins Monitor for active bleeding Liver immunology pending HCV RNA genotype pending Supportive care Further recommendations to follow Patient seen and examined by myself and Dr. Dugan and this note is written on his behalf 08/28/18 Liver cirrhosis with history of hep C Ascites Status post esophageal banding of varices Moderate amount of abdominal ascites with 2+ pedal edema WBC 3.7 hemoglobin 11.8 hematocrit 35.7 platelet count 98 Total bilirubin 1.0 AST 64 ALT 33 alk phos 109 Plan Advance diet Continue pantoprazole 40 mg IV push twice daily Continue Rocephin-SBP protocol Lactulose 30 mL's p.o. daily Furosemide 80 mg p.o. daily Spironolactone 100 mg p.o. daily Xifaxan 550 mg every 12 Anti-emetics as per attending Avoid hepatotoxins Monitor for active bleeding Liver immunology pending HCV RNA genotype pending Supportive care Further recommendations to follow <Zaida Castillo - Last Filed: 08/28/18 17:50> (1) Hepatitis C Status: Acute Code(s): B19.20 - Unspecified viral hepatitis C without hepatic coma (2) Liver cirrhosis Status: Acute Code(s): K74.60 - Unspecified cirrhosis of liver (3) Ascites Status: Acute Code(s): R18.8 - Other ascites - Attending Attestation Patient seen and examined Agree with above Continue with current supportive care Monitor labs We will check alpha-fetoprotein <Jagjit Quintero E - Last Filed: 08/28/18 22:02> <Zaida Castillo - Last Filed: 08/28/18 17:50> (3) Ascites Qualifiers: Ascites type: other type Qualified Code(s): R18.8 - Other ascites <Jagjit Quintero - Last Filed: 08/28/18 22:02> (3) Ascites Qualifiers: Ascites type: other type Qualified Code(s): R18.8 - Other ascites
[2018-08-28] MEDS: Senna/Docusate Sodium 8.6/50 MG Tablet PO SCH (19:14)
[2018-08-28] MEDS: Ciprofloxacin 500 MG Tablet PO SCH (19:15)
[2018-08-29] MEDS: Pantoprazole Inj 40 MG Vial IV.PUSH SCH ×2 (09:10→21:32)
[2018-08-29] MEDS: Furosemide 80 MG Tablet PO SCH (09:10)
[2018-08-29] MEDS: Ferrous Sulfate 325 MG Tablet PO SCH (09:10)
[2018-08-29] MEDS: rifAXIMin 550 MG Tablet PO SCH ×2 (09:10→21:33)
[2018-08-29] MEDS: Gabapentin 300 MG Capsule PO SCH (09:10)
[2018-08-29 09:57] LABS: Hematocrit 31.9 % (35.0-46.0); Hemoglobin 10.7 gm/dL (11.6-15.3); Mean Corpuscular HGB Conc 33.5 % (32.0-36.0); Mean Corpuscular Hemoglobin 29.6 pg (27.0-34.0); Mean Corpuscular Volume 88.4 fL (80.0-100.0); Mean Platelet Volume 8.2 fL (7.0-11.0); Platelet Count 116 th/mm3 (150-450); Red Blood Count 3.61 mil/mm3 (4.00-5.30); Red Cell Distribution Width 15.4 % (11.6-17.2); White Blood Count 4.4 th/mm3 (4.0-11.0)
[2018-08-29 10:06] LABS: INR 1.3 Ratio; Prothrombin Time 12.8 sec (9.8-11.6)
[2018-08-29 10:21] LABS: Alanine Aminotransferase 28 U/L (10-53); Albumin 2.9 g/dL (3.4-5.0); Alkaline Phosphatase 98 U/L (45-117); Alpha Fetoprotein Tumor Marker 4.6 ng/mL (0.5-8.0); Anion Gap 8 meq/L (5-15); Aspartate Aminotransferase 27 U/L (15-37); Blood Urea Nitrogen 9 mg/dL (7-18); Calcium 7.7 mg/dL (8.5-10.1); Carbon Dioxide 35.2 meq/L (21.0-32.0); Chloride 100 meq/L (98-107); Glomerular Filtration Rate Greater Than 89 mL/min (>89); Glucose,Random 85 mg/dL (74-106); Sodium 143 meq/L (136-145); Total Protein 5.6 g/dL (6.4-8.2)
[2018-08-29] MEDS: Morphine Sulfate Inj 2 MG/ML Vial IV.PUSH PRN ×2 (12:26→21:33)
--- NOTE | 2018-08-29 13:00 | P.PNIM ---
Subjective Interval history: Patient seen and evaluated twice today. This morning she was doing well. However nurse called this afternoon for chest pain. On my evaluation complains of epigastric pain. States the pain started from her mouth down to her stomach. [employer] stratus used to communicate with the patient. Physical Exam Vital signs: Vital Signs 08/28/18 16:00 08/28/18 20:00 08/29/18 00:00 Temperature 98.3 F 98.3 F 98.5 F Pulse Rate 46 L 52 L 51 L Respiratory Rate 19 16 17 Blood Pressure 152/51 H 142/66 H 130/63 Pulse Oximetry 98 96 97 08/29/18 04:00 08/29/18 08:00 08/29/18 12:00 Temperature 97.8 F 98.3 F 97.9 F Pulse Rate 48 L 47 L 50 L Respiratory Rate 16 18 18 Blood Pressure 140/90 149/63 H 142/95 H Pulse Oximetry 100 95 99 Intake & Output 08/28/18 08/29/18 08/29/18 18:59 06:59 18:59 Intake Total 100 / 100 Output Total 500 / 500 Balance -400 / -400 Weight 83.45 kg Intake: IV 100 / 100 Rocephin Inj 2,000 MG In NS Inj 100 / 100 100 ML @ 200 mls/hr IV.SIG Q24H [facility] Rx#:[id number] Output: Urine 500 / 500 Other: # Voids 2 Date of Last Bowel Movement 08/26/18 08/26/18 08/26/18 Narrative: GENERAL: Obese female in no acute distress CARDIOVASCULAR: Normal rate and regular rhythm without murmurs, gallops, or rubs. RESPIRATORY: Good respiratory efforts. Bibasilar crackles. GASTROINTESTINAL: Abdomen is obese but soft. Tender to palpation in the midepigastric region. MUSCULOSKELETAL: 2+ bilateral lower extremity edema NEURO: Alert & Oriented x4 to person, place, time, situation. Moves all ext x4 PSYCH: Appropriate mood and affect. Results Labs CBC & Chem 7: 08/29/18 08:30 08/29/18 08:30 Assessment and Plan (1) Hepatitis C: Code(s): B19.20 - Unspecified viral hepatitis C without hepatic coma Status: Acute (2) Liver cirrhosis: Code(s): K74.60 - Unspecified cirrhosis of liver Status: Acute (3) Ascites: Code(s): R18.8 - Other ascites Status: Acute Plan 62 year old female with past history of hep C w/ cirrhosis presenting with SOB found to have large abdominal ascites. Apparently patient was previously seen at [facility] but somehow was lost to follow-up. Hep C, cirrhosis with ascites. Shortness of breath. - We will continue with diuresis including Lasix, spironolactone, Xifaxan. She is bradycardic and cannot tolerate beta blockers at this time. - Status post paracentesis. 4 L removed. Fluid studies pending. - On Protonix drip per GI - Monitor I&O - daily BMP - Viral hep C levels pending - Status post EGD which revealed large varices, status post banding by GI. - Strict I/O. -Continue Rocephin for SBP prophylaxis. Advance diet as tolerated. Lactulose daily History of CAD and heart valve replacement/ Bradycardia: - Resume Plavix today. - Continue to hold amlodipine given spironolactone and increased dose of Lasix. - No chest pain. Cardiac enzymes negative. - We will continue to hold Amiodarone at this time. It is unclear if the patient was taking this medication outpatient. Epigastric pain/Chest pain: -Doubt ACS. She is tender in the midepigastric region. She did have an EGD which revealed large varices status post banding by GI. Suspect her pain is GI in origin. - We will obtain a chest x-ray, abdominal x-ray, cardiac enzymes. She is already on PPI. Will give morphine for pain control. code: Full dvt ppx: SCD, chemoprophylaxis contraindicated given thrombocytopenia / coagulopathy from cirrhosis Progress Note: Quality VTE Deep Vein Thrombosis/Pulmonary Embolism Present on Admission: No _ (1) Ascites Qualifiers: Ascites type: other type Qualified Code(s): R18.8 - Other ascites (2) Liver cirrhosis Qualifiers: Ascites presence: Hepatic cirrhosis type: (3) Hepatitis C Qualifiers: Hepatic coma status: Viral hepatitis chronicity:
[2018-08-29] MEDS ORDERED: Morphine Sulfate Inj 2 MG/ML Vial IV.PUSH ONE (13:21)
--- NOTE | 2018-08-29 14:02 | XR ---
EXAM DATE: 08/29/2018 1:58 PM EST AGE/SEX: 62 years / Female INDICATIONS: Epigastric pain. CLINICAL DATA: This is the patient's subsequent encounter. Patient reports that signs and symptoms h ave been present for 4 - 6 days and indicates a pain score of 7/10. MEDICAL/SURGICAL HISTORY: . Hypertension. small bowel obstruction, asthma. . Tubal ligation. section. COMPARISON: [facility] [place], CHEST 1V SINGLE AP, 08/24/2018. . FINDINGS: Patchy airspace disease at the lung bases with mild diffuse interstitial prominence unchanged from pr ior exam. Cardiomediastinal contours are stable. Endoluminal aortic valve graft repair. Remainder of the exam is unchanged. CONCLUSION: 1. No significant interval change. 2. Stable mild patchy bibasilar airspace disease. 3. Stable mild diffuse interstitial prominence. Electronically signed by: Ricardo Prakash MD Board Certified Radiologist 08/29/2018 2:00 PM EST
--- NOTE | 2018-08-29 14:33 | XR ---
EXAM DATE: 08/29/2018 2:02 PM EST AGE/SEX: 62 years / Female INDICATIONS: Epigastric pain. CLINICAL DATA: This is the patient's subsequent encounter. Patient reports that signs and symptoms h ave been present for 4 - 6 days and indicates a pain score of 3/10. MEDICAL/SURGICAL HISTORY: . Hypertension. small bowel obstruction, asthma. . Tubal ligation . section. COMPARISON: [facility] [place] ABDOMEN & PELVIS W/O CONTRAST, 08/24/2018. . FINDINGS: Multiple loops of marginally distended small bowel measuring up to 3 cm. Air is seen in the colon. T here is no gross pneumatosis or free air. No abnormal calcifications. Degenerative changes in the low er lumbar spine. CONCLUSION: 1. Multiple loops of marginally distended small bowel which may reflect mild adynamic ileus. Electronically signed by: Ricardo Prakash MD Board Certified Radiologist 08/29/2018 2:31 PM EST
[2018-08-29 15:03] LABS: Creatine Kinase 122 U/L (26-192); Troponin I 0.02 ng/mL (0.02-0.05)
[2018-08-29 15:15] LABS: Creatine Kinase MB 1.7 ng/mL (0.5-3.6)
--- NOTE | 2018-08-29 20:33 | P.PNGI ---
Subjective Interval history: Laying comfortably in bed denies any pain denies any bleeding Physical Exam Vital signs: Vital Signs 08/29/18 00:00 08/29/18 04:00 08/29/18 08:00 Temperature 98.5 F 97.8 F 98.3 F Pulse Rate 51 L 48 L 50 L Respiratory Rate 17 16 18 Blood Pressure 130/63 140/90 149/63 H Pulse Oximetry 97 100 95 08/29/18 12:00 08/29/18 16:00 Temperature 97.9 F 97.6 F Pulse Rate 48 L 43 L Respiratory Rate 18 18 Blood Pressure 142/95 H 148/65 H Pulse Oximetry 99 98 Intake & Output 08/29/18 08/29/18 08/30/18 06:59 18:59 06:59 Intake Total 100 / 100 0 / 0 Output Total 500 / 500 Balance -400 / -400 0 / 0 Weight 83.45 kg Intake: IV 100 / 100 Rocephin Inj 2,000 MG In NS Inj 100 / 100 100 ML @ 200 mls/hr IV.SIG Q24H [facility] Rx#:[id number] Other 0 / 0 Output: Urine 500 / 500 Other: # Voids 2 Date of Last Bowel Movement 08/26/18 08/26/18 - Constitutional no acute distress - Routine HEENT Exam Head: Present: normocephalic Eye: Present: EOMI ENT: Present: mucous membranes moist - Routine Neck Exam Present: supple - Routine Respiratory Exam Present: CTA bilaterally - Routine Cardiovascular Exam Present: RRR - Routine Abdominal Exam Present: soft, normoactive bowel sounds, distended. Absent: tenderness - Routine Extremities Exam Absent: cyanosis, clubbing Results - Labs CBC & Chem 7: 08/29/18 08:30 08/29/18 08:30 Laboratory Results - last 24 hr 08/25/18 08/29/18 08/29/18 18:05 08:30 08:30 WBC 4.4 RBC 3.61 L Hgb 10.7 L Hct 31.9 L MCV 88.4 MCH 29.6 MCHC 33.5 RDW 15.4 Plt Count 116 L MPV 8.2 PT INR Sodium 143 Potassium 3.0 L D Chloride 100 Carbon Dioxide 35.2 H Anion Gap 8 BUN 9 Creatinine 0.62 Estimated GFR Greater than 89 Random Glucose 85 Lactic Acid Calcium 7.7 L Magnesium Total Bilirubin 0.9 Direct Bilirubin 0.2 Indirect Bilirubin 0.7 AST 27 ALT 28 Alkaline Phosphatase 98 Total Creatine Kinase CK-MB (CK-2) Troponin I Total Protein 5.6 L D Albumin 2.9 L Lipase Tumor Marker AFP 4.6 HCV RNA Genotype Not detected 08/29/18 08/29/18 08/29/18 09:10 14:26 14:26 WBC RBC Hgb Hct MCV MCH MCHC RDW Plt Count MPV PT 12.8 H INR 1.3 Sodium Potassium Chloride Carbon Dioxide Anion Gap BUN Creatinine Estimated GFR Random Glucose Lactic Acid Calcium Magnesium 1.3 L Total Bilirubin Direct Bilirubin Indirect Bilirubin AST ALT Alkaline Phosphatase Total Creatine Kinase 122 CK-MB (CK-2) 1.7 Troponin I 0.02 Total Protein Albumin Lipase Tumor Marker AFP HCV RNA Genotype 08/29/18 08/29/18 14:26 14:26 WBC RBC Hgb Hct MCV MCH MCHC RDW Plt Count MPV PT INR Sodium Potassium Chloride Carbon Dioxide Anion Gap BUN Creatinine Estimated GFR Random Glucose Lactic Acid 1.2 Calcium Magnesium Total Bilirubin Direct Bilirubin Indirect Bilirubin AST ALT Alkaline Phosphatase Total Creatine Kinase CK-MB (CK-2) Troponin I Total Protein Albumin Lipase 173 Tumor Marker AFP HCV RNA Genotype - Imaging Impressions Abdomen X-Ray 08/29/18 00:00 CONCLUSION: 1. Multiple loops of marginally distended small bowel which may reflect mild adynamic ileus. Chest X-Ray 08/29/18 00:00 CONCLUSION: 1. No significant interval change. 2. Stable mild patchy bibasilar airspace disease. 3. Stable mild diffuse interstitial prominence. Assessment and Plan (1) Hepatitis C Status: Acute Code(s): B19.20 - Unspecified viral hepatitis C without hepatic coma (2) Liver cirrhosis Status: Acute Code(s): K74.60 - Unspecified cirrhosis of liver (3) Ascites Status: Acute Code(s): R18.8 - Other ascites - Plan 08/25/2018 This is an unfortunate 62-year-old female patient Greek-speaking who has a significant medical history of hepatitis C and now with liver cirrhosis. Patient reported that she finished treatment with hepatitis C in the past however due to lost to follow-up patient cannot tell which medication she took or which gastroenterology office she went. Today patient presented with shortness of breathing due to massive abdominal enlargement accompanied by her brother who translated most of this conversation. Patient was initially diagnosed with hep C in 2010 in her abdominal enlargement started in 2011. Patient stated that 2 weeks ago they went to [facility] for pneumonia and was admitted there but her liver cirrhosis was not address. Patient reported after her discharge from the hospital for pneumonia she was only given Lasix. Patient noted that her belly was increasingly getting harder and she is having labored breathing prompted her brother to bring her to this hospital. Patient denies chills and fever no nausea and vomiting mild abdominal pain due to the abdominal distention. Patient cannot recall gastroenterology is who manages her. when asked what is the reason why she was unable to follow-up before for the last 2 years as patient stated that it all because of her insurance has . Our service is consulted for abdominal ascites with cirrhosis. Assessment Liver cirrhosis with history of hepatitis C Ascites Possible esophageal varices Possible portal hypertension Hemoglobin 11 hematocrit 32.6 INR 1.1 Liver enzymes AST 53 ALT 44 alkaline phosphatase 145 Lipase 488 Status post abdominal paracentesis 08/25/2018 revealed 4200 cc of clear yellow fluid were removed and sent to lab for ordered studies. 08/26/2018 Liver cirrhosis with history of hep C Ascites Possible esophageal varices with portal hypertension Moderate amount of abdominal ascites with 2+ pedal edema WBC 4.0 hemoglobin 10.5 hematocrit 30.8 platelet count 80 Total bilirubin 1.0 AST 26 ALT 29 alk phos 101 ammonia 46 Peritoneal neutrophils 7 lymphocytes 74 monocytes 8 Plan Clear liquid diet N.p.o. after midnight Obtain consent for EGD Continue pantoprazole drip Continue Rocephin-SBP protocol Lactulose 30 mL's p.o. daily Furosemide 80 mg p.o. daily Spironolactone 100 mg p.o. daily Xifaxan 550 mg every 12 Anti-medics as per attending Avoid hepatotoxins Monitor for active bleeding Liver immunology pending HCV RNA genotype pending Supportive care Further recommendations to follow Patient seen and examined by myself and Dr. Dugan and this note is written on his behalf 08/29/18 Liver cirrhosis with history of hep C Ascites moderate Status post esophageal banding of varices Moderate amount of abdominal ascites with 2+ pedal edema WBC 3.7 hemoglobin 11.8 hematocrit 35.7 platelet count 98 Total bilirubin 1.0 AST 64 ALT 33 alk phos 109 Plan Advance diet Continue pantoprazole 40 mg IV push twice daily Continue Rocephin-SBP protocol Lactulose 30 mL's p.o. daily Furosemide 80 mg p.o. daily Spironolactone 100 mg p.o. daily Xifaxan 550 mg every 12 Anti-emetics as per attending Avoid hepatotoxins Monitor for active bleeding Liver immunology pending HCV RNA genotype pending Supportive care Further recommendations to follow (3) Ascites Qualifiers: Ascites type: other type Qualified Code(s): R18.8 - Other ascites
[2018-08-30] MEDS: rifAXIMin 550 MG Tablet PO SCH ×2 (09:01→21:27)
[2018-08-30] MEDS: Gabapentin 300 MG Capsule PO SCH (09:01)
[2018-08-30] MEDS: Furosemide 80 MG Tablet PO SCH (09:01)
[2018-08-30] MEDS: Ferrous Sulfate 325 MG Tablet PO SCH (09:01)
[2018-08-30] MEDS: Pantoprazole Inj 40 MG Vial IV.PUSH SCH ×2 (09:01→21:27)
[2018-08-30 11:07] LABS: Hematocrit 33.8 % (35.0-46.0); Hemoglobin 11.5 gm/dL (11.6-15.3); Mean Corpuscular HGB Conc 34.1 % (32.0-36.0); Mean Corpuscular Hemoglobin 30.3 pg (27.0-34.0); Mean Corpuscular Volume 88.7 fL (80.0-100.0); Mean Platelet Volume 7.9 fL (7.0-11.0); Platelet Count 151 th/mm3 (150-450); Red Blood Count 3.81 mil/mm3 (4.00-5.30); Red Cell Distribution Width 15.6 % (11.6-17.2); White Blood Count 4.4 th/mm3 (4.0-11.0)
[2018-08-30 11:26] LABS: Albumin 3.1 g/dL (3.4-5.0); Anion Gap 3 meq/L (5-15); Aspartate Aminotransferase 32 U/L (15-37); Blood Urea Nitrogen 8 mg/dL (7-18); Calcium 8.2 mg/dL (8.5-10.1); Carbon Dioxide 40.4 meq/L (21.0-32.0); Chloride 101 meq/L (98-107); Glomerular Filtration Rate 68 mL/min (>89); Glucose,Random 113 mg/dL (74-106); Potassium 3.6 meq/L (3.5-5.1); Sodium 144 meq/L (136-145)
[2018-08-30 11:27] LABS: % Iron Saturation 21.7 % (20-50)
[2018-08-30 11:29] LABS: Alanine Aminotransferase 33 U/L (10-53); Alkaline Phosphatase 109 U/L (45-117); Total Protein 6.6 g/dL (6.4-8.2)
[2018-08-30] MEDS: Mag Sulf 1 gm/100 ml Premix 100 ML IV.SIG SCH ×2 (11:46→13:14)
--- NOTE | 2018-08-30 12:36 | ECG ---
Date Performed: 08/29/2018 Time Performed: 13:03:02 PTAGE: 62 years EKG: Sinus bradycardia. Prolonged QT interval Lateral T wave changes are nonspecific Compared to previous tracing rate has slowed with prolongation of QT interval Clinical correlation is recommende d Borderline ECG PREVIOUS TRACING : 08/24/2018 11.08 DOCTOR: Isidro Chung Interpretating Date/Time 08/30/2018 12:35:57
--- NOTE | 2018-08-30 14:06 | P.DS ---
DS: Providers Date of admission: 08/24/18 16:01 Primary care physician: Ge Reynolds MD Consults: 08/24/18 17:58 Consult to Gastroenterology Routine Consulting Provider: Deshawn Dugan V Reason for Consultation: abdominal ascities with cirrhosis in patient lost to follow up. atleast 10L of fluid in the abdomen Notified:: Service Spoke with:: les Date Notified:: 08/24/18 Time Notified:: 18:07 Ordering Provider: GRETCHEN Brief History from admission: HPI on admission as documented by the admitting physician: 62 year old female with past medical history of hep C ( s/p treatment) complicated by liver cirrhosis, HLD and asthma who presents with SOB. Transaltion provided by brother at the bedside. As per patient she originally started having SOB approximately 3 weeks ago but came in after acutely noticing her breathing got worse the last 24hrs. Patient tried nebulizer treatments thinking the SOB was due to asthma but did not have improvement. She reports that her weight was increasing and it got harder to breathe. 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 Patient reports that she is good with taking her lasix 20mg qD and denied having salty foods or poor diet. Of note, last january patient had a valve replace due to it being narrowed but unsure which valve but says it was done at [facility]. Patient denied any fever or chills. Only pain was from the belly getting larger. Patient update on day of discharge: Patient reports she is feeling great today. Tolerating her diet. Eager to go home. DS: Diagnosis Discharge Diagnosis (1) Hepatitis C: Status: Acute (2) Liver cirrhosis: Status: Acute (3) Ascites: Status: Acute DS: Summary 62 year old female with past history of hep C w/ cirrhosis presenting with SOB found to have large abdominal ascites. Apparently patient was previously seen at [facility] but somehow was lost to follow-up. Evaluation and treatment course detailed below: Hep C, cirrhosis with ascites. -Patient treated with IV Lasix initially, spironolactone, and rifaximin. She is bradycardic and cannot tolerate beta blockers at this time. - Status post paracentesis. 4 L removed. -Patient followed by GI. Viral hep C levels pending. Status post EGD which revealed large varices, status post banding by GI. - Patient treated with Rocephin for SBP prophylaxis. She tolerated diet.. Lactulose daily -Patient advised to follow-up outpatient with GI Hypoxemia/Shortness of breath secondary to pleural effusion. -Respiratory status improved. Stable on supplemental oxygen. Patient is discharged home with oxygen. History of CAD and heart valve replacement/ Bradycardia: - Plavix held for paracentesis but this was resumed. - Resume amlodipine. Continue spironolactone and Lasix. - Cardiac enzymes negative. -Amiodarone discontinued given bradycardia. It is unclear if the patient was taking this medication outpatient. Patient is advised to follow-up outpatient with cardiology. Epigastric pain/Chest pain: Pain likely related to gastritis. Pain resolved. ACS ruled out. Time Spent with Patient Total time spent providing and/or coordinating discharge services: Greater than 30 minutes Quality: VTE Deep Vein Thrombosis/Pulmonary Embolism Present on Admission: No Exam Narrative Exam Narrative: GENERAL: Obese female in no acute distress CARDIOVASCULAR: Rate of 55 and regular rhythm without murmurs, gallops, or rubs. RESPIRATORY: Good respiratory efforts. Bibasilar crackles. GASTROINTESTINAL: Abdomen is obese but soft. Non tender to palpation. MUSCULOSKELETAL: 1+ bilateral lower extremity edema NEURO: Alert & Oriented x4 to person, place, time, situation. Moves all ext x4 PSYCH: Appropriate mood and affect. Results Labs on day of discharge: Labs from last 24 hours 08/30/18 08/30/18 08/30/18 11:00 10:56 10:56 WBC RBC Hgb Hct MCV MCH MCHC RDW Plt Count MPV Sodium Potassium Chloride Carbon Dioxide Anion Gap BUN Creatinine Estimated GFR Random Glucose Lactic Acid Calcium Magnesium Iron 59 TIBC 272 % Saturation 21.7 Ferritin 72 Total Bilirubin AST ALT Alkaline Phosphatase Total Creatine Kinase CK-MB (CK-2) Troponin I Total Protein Albumin Ceruloplasmin Pending Lipase Stool [id number] Pending Rheumatoid Factor Pending KANDI Screen Pending KANDI Pattern Pending SS-A Antibody Pending SS-B Antibody Pending Sm (Lee) Antibody Pending SM/CABLE PULLER Antibody Pending Scl-70 Antibody Pending Anti-ds DNA (Crithidia) Pending Mitochondria M2 IgG Ab Pending Anti-Smooth Muscle Ab Pending 08/30/18 08/30/18 08/29/18 10:56 10:56 14:26 WBC 4.4 RBC 3.81 L Hgb 11.5 L Hct 33.8 L MCV 88.7 MCH 30.3 MCHC 34.1 RDW 15.6 Plt Count 151 D MPV 7.9 Sodium 144 Potassium 3.6 Chloride 101 Carbon Dioxide 40.4 H Anion Gap 3 L BUN 8 Creatinine 0.85 Estimated GFR 68 L Random Glucose 113 H Lactic Acid Calcium 8.2 L Magnesium Iron TIBC % Saturation Ferritin Total Bilirubin 1.0 AST 32 ALT 33 Alkaline Phosphatase 109 Total Creatine Kinase CK-MB (CK-2) Troponin I Total Protein 6.6 D Albumin 3.1 L Ceruloplasmin Lipase 173 Stool p-2-Xioostyeoct Rheumatoid Factor KANDI Screen KANDI Pattern SS-A Antibody SS-B Antibody Sm (Lee) Antibody SM/CABLE PULLER Antibody Scl-70 Antibody Anti-ds DNA (Crithidia) Mitochondria M2 IgG Ab Anti-Smooth Muscle Ab 08/29/18 08/29/18 08/29/18 14:26 14:26 14:26 WBC RBC Hgb Hct MCV MCH MCHC RDW Plt Count MPV Sodium Potassium Chloride Carbon Dioxide Anion Gap BUN Creatinine Estimated GFR Random Glucose Lactic Acid 1.2 Calcium Magnesium 1.3 L Iron TIBC % Saturation Ferritin Total Bilirubin AST ALT Alkaline Phosphatase Total Creatine Kinase 122 CK-MB (CK-2) 1.7 Troponin I 0.02 Total Protein Albumin Ceruloplasmin Lipase Stool l-9-Bgmrvwnksbs Rheumatoid Factor KANDI Screen KANDI Pattern SS-A Antibody SS-B Antibody Sm (Lee) Antibody SM/CABLE PULLER Antibody Scl-70 Antibody Anti-ds DNA (Crithidia) Mitochondria M2 IgG Ab Anti-Smooth Muscle Ab Impressions ITS Impressions Abdomen/Pelvis CT 08/24/18 12:02 CONCLUSION: 1. Cirrhosis with splenomegaly and moderate ascites. 2. Small umbilical hernia containing fat and ascites. No bowel herniation. 3. There are upper limits of normal, most likely reactive willem hepatis, retroperitoneal and cardiophrenic lymph nodes. 4. Body wall edema/anasarca. 5. Eerxo-wn-wjwcllxh right and moderate to large left pleural effusions with atelectasis of the visualized lung bases. 6. Cholelithiasis without convincing evidence of cholecystitis. No duct stone or ductal dilatation seen. Paracentesis Ultrasound 08/25/18 00:00 CONCLUSION: 1. Uncomplicated paracentesis. 4200 cc of clear yellow fluid were removed and sent to lab for ordered studies. Abdomen X-Ray 08/29/18 00:00 CONCLUSION: 1. Multiple loops of marginally distended small bowel which may reflect mild adynamic ileus. Chest X-Ray 08/29/18 00:00 CONCLUSION: 1. No significant interval change. 2. Stable mild patchy bibasilar airspace disease. 3. Stable mild diffuse interstitial prominence. Discharge Plan Discharge Disposition Patient Disposition: W/Home Health Service Discharge Condition Condition: Stable Discharge Order Discharge Orders: Discharge Order (Routine); Ordered 08/30/18 Ordered By: Spencer Bey Physicians Team Primary Care Provider: Ge Reynolds Attending Provider: Spencer Bey Other Providers: Deshawn Dugan V Rxs /Orders / Referrals /Forms Prescriptions: New spironolactone 100 mg Tablet 100 mg PO DAILY Qty: 30 RF: 0 furosemide 80 mg Tablet 80 mg PO DAILY Qty: 30 RF: 0 rifaximin [Xifaxan] 550 mg Tablet 550 mg PO Q12HR Qty: 60 RF: 0 lactulose 20 gram/30 mL Solution 30 ml PO DAILY 30 Days Qty: 900 RF: 0 potassium chloride [Klor-Con 10] 10 mEq Tablet Extended Release 10 meq PO BID Qty: 60 RF: 0 Continue clopidogrel 75 mg Tablet 75 mg PO DAILY RF: 0 amlodipine 5 mg Tablet 5 mg PO DAILY RF: 0 ferrous sulfate 325 mg (65 mg iron) Tablet 325 mg PO DAILY RF: 0 gabapentin 300 mg Capsule 300 mg PO DAILY RF: 0 ergocalciferol (vitamin D2) [Vitamin D2] 50,000 unit Capsule 50,000 unit PO QWEEK RF: 0 pantoprazole 40 mg Tablet,Delayed Release (Dr/Ec) 40 mg PO DAILY Qty: 30 RF: 0 Discontinued amiodarone 200 mg Tablet 200 mg PO DAILY RF: 0 furosemide 20 mg Tablet 20 mg PO DAILY RF: 0 Ambulatory Orders / Order Sets / DME: Oxygen Tank (2 liter) (Routine) Location: Determined by Patient Ordered By: Spencer Bey Referrals: Deshawn Dugan MD [Physician] - See Instructions Ge Reynolds MD [Primary Care Provider] - See Instructions (Follow up with PCP. ) Discharge Instructions Patient Printed Instructions: Chest Pain (ED) Status ED Status: Left Department
--- NOTE | 2018-08-30 15:34 | P.PNGI ---
Subjective Interval history: Patient awake and alert Sitting up in chair at bedside Family present Planning for discharge home Patient denies abdominal pain No reported bleeding Physical Exam Vital signs: Vital Signs 08/29/18 16:00 08/29/18 20:00 08/30/18 00:00 Temperature 97.6 F 98.1 F 97.9 F Pulse Rate 43 L 42 L 47 L Respiratory Rate 18 16 16 Blood Pressure 148/65 H 139/57 L 115/46 L Pulse Oximetry 98 48 L 100 Pulse Oximetry [Exertion on Room Air] Pulse Oximetry [Resting on Room Air] Pulse Oximetry [Resting with Oxygen] 08/30/18 04:00 08/30/18 08:00 08/30/18 08:01 Temperature 97.7 F 98.4 F Pulse Rate 48 L 45 L 50 L Respiratory Rate 16 18 Blood Pressure 146/63 H 163/72 H Pulse Oximetry 93 L 90 L Pulse Oximetry [Exertion on Room Air] Pulse Oximetry [Resting on Room Air] Pulse Oximetry [Resting with Oxygen] 08/30/18 12:00 08/30/18 12:06 Temperature 98.2 F Pulse Rate 50 L Respiratory Rate 18 Blood Pressure 154/64 H Pulse Oximetry 99 Pulse Oximetry [Exertion on Room Air] 83 L Pulse Oximetry [Resting on Room Air] 95 Pulse Oximetry [Resting with Oxygen] 92 L Intake & Output 08/29/18 08/30/18 08/30/18 18:59 06:59 18:59 Intake Total 0 / 0 100 / 100 200 / 200 Balance 0 / 0 100 / 100 200 / 200 Weight 94 kg Intake: IV 100 / 100 200 / 200 Magnesium Sulfate 1 gm/D5W 100 200 / 200 ml Premix 100 ML @ 100 mls/hr IV.SIG Q1H ROSELIA Rx#:[id number] Rocephin Inj 2,000 MG In NS Inj 100 / 100 100 ML @ 200 mls/hr IV.SIG Q24H ROSELIA Rx#:[id number] Oral 0 / 0 Other 0 / 0 Other: # Voids 2 3 Date of Last Bowel Movement 08/26/18 08/29/18 08/29/18 - Constitutional no acute distress, morbidly obese, chronically ill appearing, cooperative - Routine HEENT Exam Head: Present: normocephalic ENT: Present: mucous membranes moist - Routine Neck Exam Present: supple - Routine Respiratory Exam Present: CTA bilaterally. Absent: accessory muscle use - Routine Cardiovascular Exam Present: RRR, S1, S2 - Routine Abdominal Exam Present: soft, normoactive bowel sounds, distended. Absent: tenderness - Routine Skin Exam Present: dry, warm - Routine Neurological Exam Present: alert, oriented X3 Results - Labs CBC & Chem 7: 08/30/18 10:56 08/30/18 10:56 Laboratory Results - last 24 hr 08/30/18 08/30/18 08/30/18 10:56 10:56 10:56 WBC 4.4 RBC 3.81 L Hgb 11.5 L Hct 33.8 L MCV 88.7 MCH 30.3 MCHC 34.1 RDW 15.6 Plt Count 151 D MPV 7.9 Sodium 144 Potassium 3.6 Chloride 101 Carbon Dioxide 40.4 H Anion Gap 3 L BUN 8 Creatinine 0.85 Estimated GFR 68 L Random Glucose 113 H Calcium 8.2 L Iron 59 TIBC 272 % Saturation 21.7 Ferritin 72 Total Bilirubin 1.0 AST 32 ALT 33 Alkaline Phosphatase 109 Total Protein 6.6 D Albumin 3.1 L Assessment and Plan (1) Hepatitis C Status: Acute Code(s): B19.20 - Unspecified viral hepatitis C without hepatic coma (2) Liver cirrhosis Status: Acute Code(s): K74.60 - Unspecified cirrhosis of liver (3) Ascites Status: Acute Code(s): R18.8 - Other ascites - Plan 08/25/2018 This is an unfortunate 62-year-old female patient Bengali-speaking who has a significant medical history of hepatitis C and now with liver cirrhosis. Patient reported that she finished treatment with hepatitis C in the past however due to lost to follow-up patient cannot tell which medication she took or which gastroenterology office she went. Today patient presented with shortness of breathing due to massive abdominal enlargement accompanied by her brother who translated most of this conversation. Patient was initially diagnosed with hep C in 2010 in her abdominal enlargement started in 2011. Patient stated that 2 weeks ago they went to [facility] for pneumonia and was admitted there but her liver cirrhosis was not address. Patient reported after her discharge from the hospital for pneumonia she was only given Lasix. Patient noted that her belly was increasingly getting harder and she is having labored breathing prompted her brother to bring her to this hospital. Patient denies chills and fever no nausea and vomiting mild abdominal pain due to the abdominal distention. Patient cannot recall gastroenterology is who manages her. when asked what is the reason why she was unable to follow-up before for the last 2 years as patient stated that it all because of her insurance has . Our service is consulted for abdominal ascites with cirrhosis. Assessment Liver cirrhosis with history of hepatitis C Ascites Possible esophageal varices Possible portal hypertension Hemoglobin 11 hematocrit 32.6 INR 1.1 Liver enzymes AST 53 ALT 44 alkaline phosphatase 145 Lipase 488 Status post abdominal paracentesis 08/25/2018 revealed 4200 cc of clear yellow fluid were removed and sent to lab for ordered studies. 08/26/2018 Liver cirrhosis with history of hep C Ascites Possible esophageal varices with portal hypertension Moderate amount of abdominal ascites with 2+ pedal edema WBC 4.0 hemoglobin 10.5 hematocrit 30.8 platelet count 80 Total bilirubin 1.0 AST 26 ALT 29 alk phos 101 ammonia 46 Peritoneal neutrophils 7 lymphocytes 74 monocytes 8 Plan Clear liquid diet N.p.o. after midnight Obtain consent for EGD Continue pantoprazole drip Continue Rocephin-SBP protocol Lactulose 30 mL's p.o. daily Furosemide 80 mg p.o. daily Spironolactone 100 mg p.o. daily Xifaxan 550 mg every 12 Anti-medics as per attending Avoid hepatotoxins Monitor for active bleeding Liver immunology pending HCV RNA genotype pending Supportive care Further recommendations to follow Patient seen and examined by myself and Dr. Dugan and this note is written on his behalf 08/29/18 Liver cirrhosis with history of hep C Ascites moderate Status post esophageal banding of varices Moderate amount of abdominal ascites with 2+ pedal edema WBC 3.7 hemoglobin 11.8 hematocrit 35.7 platelet count 98 Total bilirubin 1.0 AST 64 ALT 33 alk phos 109 08/30/2018 Liver cirrhosis with hepatitis C Ascites Post banding of esophageal varices --Moderate ascites with 1+ pedal edema Status post esophageal banding of varices Hemoglobin 11.5 hematocrit 33.8--no bleeding reported Total bilirubin is 1.0 AST 32 ALT 33 alk phos 109 Plan Diet as tolerated Continue pantoprazole 40 mg p.o. twice daily Lactulose 30 mg p.o. daily Lasix 80 mg p.o. daily Spironolactone 100 mg p.o. daily Xifaxan 550 mg p.o. every 12 hours Avoid hepatotoxins Liver immunology pending HCV RNA nonreactive Supportive care Patient stable for discharge home from GI standpoint Patient agrees to follow-up post discharge in 1 week with GI This patient has been seen by myself and Dr. Dugan and this note is written on his behalf - Attending Attestation Dr. Dugan (3) Ascites Qualifiers: Ascites type: other type Qualified Code(s): R18.8 - Other ascites
[2018-08-31] MEDS: rifAXIMin 550 MG Tablet PO SCH (08:30)
[2018-08-31] MEDS: Ferrous Sulfate 325 MG Tablet PO SCH (08:31)
[2018-08-31] MEDS: Furosemide 80 MG Tablet PO SCH (08:33)
[2018-08-31] MEDS: Gabapentin 300 MG Capsule PO SCH (08:34)
[2018-08-31] MEDS: Pantoprazole Inj 40 MG Vial IV.PUSH SCH (08:34)
--- NOTE | 2018-08-31 12:11 | P.PNIM ---
Subjective Interval history: Patient awaiting oxygen for discharge. She reports that she is feeling well today. Physical Exam Vital signs: Vital Signs 08/30/18 16:00 08/30/18 20:00 08/30/18 21:24 Temperature 97.3 F L Pulse Rate 46 L 52 L Respiratory Rate 18 Blood Pressure 142/55 H Pulse Oximetry 97 97 08/31/18 00:00 08/31/18 04:00 08/31/18 08:00 Temperature 98.9 F 98.4 F Pulse Rate 58 L 50 L 50 L Respiratory Rate 16 14 Blood Pressure 142/84 H 136/60 Pulse Oximetry 94 L 95 Intake & Output 08/30/18 08/31/18 08/31/18 18:59 06:59 18:59 Intake Total 920 / 920 100 / 100 Balance 920 / 920 100 / 100 Weight 93.6 kg Intake: IV 200 / 200 100 / 100 Magnesium Sulfate 1 gm/D5W 100 200 / 200 ml Premix 100 ML @ 100 mls/hr IV.SIG Q1H ROSELIA Rx#:[id number] Rocephin Inj 2,000 MG In NS Inj 100 / 100 100 ML @ 200 mls/hr IV.SIG Q24H ROSELIA Rx#:[id number] Oral 720 / 720 Other: # Voids 3 2 Date of Last Bowel Movement 08/30/18 08/29/18 # Bowel Movements 1 Narrative: GENERAL: Obese female in no acute distress CARDIOVASCULAR: Normal rate and regular rhythm without murmurs, gallops, or rubs. RESPIRATORY: Good respiratory efforts. Bibasilar crackles. GASTROINTESTINAL: Abdomen is obese but soft. Tender to palpation in the midepigastric region. MUSCULOSKELETAL: 2+ bilateral lower extremity edema NEURO: Alert & Oriented x4 to person, place, time, situation. Moves all ext x4 PSYCH: Appropriate mood and affect. Results Labs CBC & Chem 7: 08/30/18 10:56 08/30/18 10:56 Assessment and Plan (1) Hepatitis C: Code(s): B19.20 - Unspecified viral hepatitis C without hepatic coma Status: Acute (2) Liver cirrhosis: Code(s): K74.60 - Unspecified cirrhosis of liver Status: Acute (3) Ascites: Code(s): R18.8 - Other ascites Status: Acute Plan 62 year old female with past history of hep C w/ cirrhosis presenting with SOB found to have large abdominal ascites. Apparently patient was previously seen at [facility] but somehow was lost to follow-up. Evaluation and treatment course detailed below: Hep C, cirrhosis with ascites. -Patient treated with IV Lasix initially, spironolactone, and rifaximin. She is bradycardic and cannot tolerate beta blockers at this time. - Status post paracentesis. 4 L removed. -Patient followed by GI. Viral hep C levels pending. Status post EGD which revealed large varices, status post banding by GI. - Patient treated with Rocephin for SBP prophylaxis. She tolerated diet.. Lactulose daily -Patient advised to follow-up outpatient with GI Hypoxemia/Shortness of breath secondary to pleural effusion. -Respiratory status improved. Stable on supplemental oxygen. Patient is discharged home with oxygen. History of CAD and heart valve replacement/ Bradycardia: - Plavix held for paracentesis but this was resumed. - Resume amlodipine. Continue spironolactone and Lasix. - Cardiac enzymes negative. -Amiodarone discontinued given bradycardia. It is unclear if the patient was taking this medication outpatient. Patient is advised to follow-up outpatient with cardiology. Epigastric pain/Chest pain: Pain likely related to gastritis. Pain resolved. ACS ruled out. Progress Note: Quality VTE Deep Vein Thrombosis/Pulmonary Embolism Present on Admission: No _ (1) Hepatitis C Qualifiers: Viral hepatitis chronicity: Hepatic coma status: (2) Liver cirrhosis Qualifiers: Hepatic cirrhosis type: Ascites presence: (3) Ascites Qualifiers: Ascites type: other type Qualified Code(s): R18.8 - Other ascites
[2018-08-31 13:49] LABS: Smooth Muscle Total Auto Abs Negative (Negative)
[2018-09-01 17:51] LABS: Ceruloplasmin 30 mg/dL (18-53)
[2018-09-02 03:51] LABS: DS DNA Ab (Crithidia) NEGATIVE (NEGATIVE)
== END 2018-08-31 11:08 | disposition home health service (06) | DRG 433 ==
LOC: NEPE 10:39 → NEDA 16:01 → NEDH 20:32 → N04 22:15
PROVIDERS: ADMIT Family Medicine; ATTEND Family Medicine
PROC: PANENDO (2018-08-27 10:23)
DX: E66.01 Morbid (severe) obesity due to excess calories; R18.8 Other ascites; J90 Pleural effusion, not elsewhere classified; E78.5 Hyperlipidemia, unspecified; I50.9 Heart failure, unspecified; R00.1 Bradycardia, unspecified; Z79.02 Long term (current) use of antithrombotics/antiplatelets; D69.6 Thrombocytopenia, unspecified; R09.02 Hypoxemia; K74.60 Unspecified cirrhosis of liver; D68.4 Acquired coagulation factor deficiency; J45.909 Unspecified asthma, uncomplicated; K21.9 Gastro-esophageal reflux disease without esophagitis; K29.70 Gastritis, unspecified, without bleeding; R06.02 Shortness of breath; R53.1 Weakness; K31.89 Other diseases of stomach and duodenum; Z87.891 Personal history of nicotine dependence; I11.0 Hypertensive heart disease with heart failure; K76.6 Portal hypertension; B19.20 Unspecified viral hepatitis C without hepatic coma; Z68.41 Body mass index [BMI] 40.0-44.9, adult; I85.00 Esophageal varices without bleeding; K44.9 Diaphragmatic hernia without obstruction or gangrene; R26.81 Unsteadiness on feet; I25.10 Atherosclerotic heart disease of native coronary artery without angina pectoris; Z95.2 Presence of prosthetic heart valve
CPT/HCPCS: 49083; 71010; 71045; 74000; 74018; 74176; 76937; 80048; 80053; 80076; 82042; 82103; 82105; 82140; 82248; 82390; 82550; 82552; 82728; 83520; 83540; 83550; 83605; 83690; 83735; 83880; 84155; 84157; 84484; 85025; 85027; 85610; 85730; 86038; 86039; 86225; 86235; 86255; 86256; 86431; 87902; 89051; 93005; 93306; 94618; 94620; 94640; 94664; 94665; 97162; 99285; C1729; C9113; J0696; J2270; J2704; J3475; P9047